=== PATIENT | male | born 1945 | race Caucasian/White ===

== ENCOUNTER 2023-03-18 16:43 | Inpatient (IN) | payer MEDICARE ==
--- NOTE | 2023-03-18 17:35 | XR ---
EXAMINATION TYPE: XR chest 2V DATE OF EXAM: 03/18/2023 5:30 PM COMPARISON: None TECHNIQUE: XR chest 2V Frontal and lateral views of the chest. CLINICAL INDICATION:Male, 77 years old with history of Weakness; FINDINGS: Lungs/Pleura: There is no evidence of pleural effusion, focal consolidation, or pneumothorax. Senesc ent parenchymal change. Pulmonary vascularity: Unremarkable. Heart/mediastinum: Cardiomediastinal silhouette is unremarkable. Atherosclerotic calcifications are seen in the aorta. Musculoskeletal: Multiple level degenerative disc disease changes seen throughout the spine. IMPRESSION: No acute cardiopulmonary disease/process.
[2023-03-18] MEDS ORDERED: KETOROLAC 15 MG/ML 1 ML VIAL IVP STA (17:48)
[2023-03-18] MEDS ORDERED: SODIUM CHLORIDE 0.9% 500 ML 500 ML IV STA (17:48)
[2023-03-18] MEDS ORDERED: ONDANSETRON 4 MG/2 ML VIAL IVP STA (17:49)
[2023-03-18 18:02] LABS: Basophils % (A) 0 %; Eosinophils # (A) 0.2 k/uL (0-0.7); Eosinophils % (A) 1 %; HCT 30.1 % (39.0-53.0); HGB 9.9 gm/dL (13.0-17.5); Lymphocytes # (A) 0.8 k/uL (1.0-4.8); Lymphocytes % (A) 6 %; MCH 30.6 pg (25.0-35.0); MCHC 32.9 g/dL (31.0-37.0); MCV 93.2 fL (80.0-100.0); Mean Platelet Volume 8.8; Monocytes # (A) 0.6 k/uL (0-1.0); Monocytes % (A) 4 %; Neutrophils # (A) 12.2 k/uL (1.3-7.7); Neutrophils % (A) 88 %; Platelet Count 419 k/uL (150-450); RBC 3.23 m/uL (4.30-5.90); RDW 13.4 % (11.5-15.5); WBC 13.8 k/uL (3.8-10.6)
[2023-03-18 18:05] LABS: ALT 14 U/L (4-49); AST 17 U/L (17-59); African American GFR (CKD) 10 (>60 ml/min/1.73 sqM); Albumin 3.8 g/dL (3.5-5.0); Alkaline Phosphatase 141 U/L (38-126); Anion Gap 20 mmol/L; Blood Urea Nitrogen 87 mg/dL (9-20); Calcium 9.9 mg/dL (8.4-10.2); Carbon Dioxide 14 mmol/L (22-30); Chloride 106 mmol/L (98-107); Glucose 273 mg/dL (74-99); Non-African American GFR(CKD) 8 (>60 ml/min/1.73 sqM); Potassium 4.9 mmol/L (3.5-5.1); Sodium 140 mmol/L (137-145); Total Bilirubin 0.4 mg/dL (0.2-1.3); Total Protein 7.2 g/dL (6.3-8.2)
--- NOTE | 2023-03-18 18:15 | ED ---
General Adult HPI - General Chief complaint: Weakness Stated complaint: Failure to thrive Time Seen by Provider: 03/18/23 17:18 Source: EMS Mode of arrival: EMS Limitations: altered mental status - History of Present Illness Initial comments: Patient is 77-year-old male who presents the emergency department for failure to thrive. Patient has dementia and his helps provide history. According to patient has been complaining of intermittent abdominal pain for the past few months. Over the past few days he has been sleeping more than usual and has little oral intake. States he has not urinated in a couple of days. Patient has had nausea no vomiting. No fever or chills. No shortness of breath. No upper respiratory symptoms. Patient has history of prostate cancer he underwent treatment at least a couple years ago according to . - Related Data Home Medications Medication Instructions Recorded Confirmed Donepezil [Aricept] 5 mg PO HS 03/18/23 03/18/23 Ferrous Sulfate [Feosol] 325 mg PO DAILY 03/18/23 03/18/23 Levothyroxine Sodium [Synthroid] 50 mcg PO DAILY 03/18/23 03/18/23 glipiZIDE 2.5 mg PO DAILY 03/18/23 03/18/23 lisinopriL [Zestril] 2.5 mg PO DAILY 03/18/23 03/18/23 metFORMIN HCL 1,000 mg PO BID-W/MEALS 03/18/23 03/18/23 Allergies Allergy/AdvReac Type Severity Reaction Status Date / Time No Known Allergies Allergy Verified 03/18/23 17:42 Review of Systems ROS Statement: Those systems with pertinent positive or pertinent negative responses have been documented in the HPI. ROS Other: All systems not noted in ROS Statement are negative. Past Medical History Past Medical History: Dementia Additional Past Medical History / Comment(s): prostate cancer General Exam Limitations: altered mental status General appearance: alert, in no apparent distress Eye exam: Present: normal appearance, PERRL, EOMI. Absent: scleral icterus, conjunctival injection, periorbital swelling ENT exam: Present: mucous membranes dry Neck exam: Present: normal inspection. Absent: tenderness, meningismus, lymphadenopathy Respiratory exam: Present: normal lung sounds bilaterally. Absent: respiratory distress, wheezes, rales, rhonchi, stridor Cardiovascular Exam: Present: regular rate, normal rhythm, normal heart sounds. Absent: systolic murmur, diastolic murmur, rubs, gallop, clicks GI/Abdominal exam: Present: soft, distended (Suprapubic), normal bowel sounds. Absent: tenderness, guarding, rebound, rigid, pulsatile mass Extremities exam: Present: normal inspection, normal capillary refill Neurological exam: Present: alert Skin exam: Present: warm, dry, intact, normal color. Absent: rash Course Vital Signs 03/18/23 03/18/23 03/18/23 16:53 18:09 20:35 Temperature 98.2 F 99.1 F Pulse Rate 109 H 108 H 102 H Respiratory 20 17 18 Rate Blood Pressure 161/79 188/88 154/82 O2 Sat by Pulse 98 99 98 Oximetry Medical Decision Making - Medical Decision Making EKG taken at 17:37, interpreted by myself Sinus tachycardia, No ST changes Ventricular rate 107, TX interval 151, QRS duration 94, QTC 403Was pt. sent in by a medical professional or institution (, PA, [employer], urgent care, hospital, or half-way...) When possible be specific @ -No Did you speak to anyone other than the patient for history (EMS, parent, family, police, friend...)? What history was obtained from this source @ - Did you review nursing and triage notes (agree or disagree)? Why? @ -I reviewed and agree with nursing and triage notes Were old charts reviewed (outside hosp., previous admission, EMS record, old EKG, old radiological studies, urgent care reports/EKG's, half-way records)? Report findings @ -No old charts were reviewed Differential Diagnosis (chest pain, altered mental status, abdominal pain women, abdominal pain men, vaginal bleeding, weakness, fever, dyspnea, syncope, headache, dizziness, GI bleed, back pain, seizure, CVA, palpatations, mental health)? @ -not applicable EKG interpreted by me (3pts min.). @ -As above X-rays interpreted by me (1pt min.). @ No acute cardiopulmonary process CT interpreted by me (1pt min.). @ -distended bladder with mild to moderate bilateral hydroureteronephrosis. No obstructing calculus. Possible ruptured calyx. Trace right pleural effusion. U/S interpreted by me (1pt. min.). @ -None done What testing was considered but not performed or refused? (CT, X-rays, U/S, labs)? Why? @ -None What meds were considered but not given or refused? Why? @ -None Did you discuss the management of the patient with other professionals (professionals i.e. , PA, [employer], lab, RT, psych nurse, social sciences instructor, profiling machine operator, teacher, special officer automat, case managers)? Give summary @ -No Was smoking cessation discussed for >3mins.? @ -No Was critical care preformed (if so, how long)? @ -No Were there social determinants of health that impacted care today? How? (Homelessness, low income, unemployed, alcoholism, drug addiction, transportation, low edu. Level, literacy, decrease access to med. care, longterm, rehab)? @ -No Was there de-escalation of care discussed even if they declined (Discuss DNR or withdrawal of care, Hospice)? DNR status @ -No What co-morbidities impacted this encounter? (DM, HTN, Smoking, COPD, CAD, Cancer, CVA, ARF, Chemo, Hep., AIDS, mental health diagnosis, sleep apnea, morbid obesity)? @ Diabetes Was patient admitted / discharged? Hospital course, mention meds given and ro [place], prescriptions, significant lab abnormalities, going to OR and other pertinent info. @ -77-year-old presenting for failure to thrive. Patient appears malnourished, dry, in apparent distress. Vital signs within normal limits. Laboratory studies significant for acute kidney injury, creatinine at 6.06, BUN 87, no previous for comparison. There is hyperglycemia at 273, patient has history of diabetes. Patient is acidotic, bicarbonate 14 anion gap at 20.there is no ketosis. Patient is not in DKA. Alk phos is mildly elevated at 141. There is mild leukocytosis of 13.8. Chest x-ray was interpreted by myself showing no acute cardiopulmonary process. CT of the abdomen and pelvis without contrast was obtained showing a distended bladder with mild to moderate bilateral hydroureteronephrosis. No obstructing calculus. Possible ruptured calyx. Patient unable to urinate bladder scan was performed and fully catheter was placed Patient be admitted for failure to thrive, NICHOLAS, urinary retention. Dr. Maddox accept nephro and urology on consult Undiagnosed new problem with uncertain prognosis? @ -No Drug Therapy requiring intensive monitoring for toxicity (Heparin, Nitro, Insulin, Cardizem)? @ -No Were any procedures done? @ -No Diagnosis/symptom? @ -failure to thrive,NICHOLAS, urinary retention Acute, or Chronic, or Acute on Chronic? @ -acute Uncomplicated (without systemic symptoms) or Complicated (systemic symptoms)? @ -default Side effects of treatment? @ -No Exacerbation, Progression, or Severe Exacerbation? @ -No Poses a threat to life or bodily function? How? (Chest pain, [place], [place], pneumonia, PE, COPD, DKA, ARF, appy, cholecystitis, CVA, Diverticulitis, Homicidal, Suicidal, threat to staff... and all critical care pts) @ -No Dr. Kay is my attending - Lab Data Result diagrams: 03/18/23 17:30 03/18/23 17:30 Lab Results 03/18/23 03/18/23 03/18/23 Range/Units 17:30 17:30 17:30 WBC 13.8 H (3.8-10.6) k/uL RBC 3.23 L (4.30-5.90) m/uL Hgb 9.9 L (13.0-17.5) gm/dL Hct 30.1 L (39.0-53.0) % MCV 93.2 (80.0-100.0) fL MCH 30.6 (25.0-35.0) pg MCHC 32.9 (31.0-37.0) g/dL RDW 13.4 (11.5-15.5) % Plt Count 419 (150-450) k/uL MPV 8.8 Neutrophils % 88 % Lymphocytes % 6 % Monocytes % 4 % Eosinophils % 1 % Basophils % 0 % Neutrophils # 12.2 H (1.3-7.7) k/uL Lymphocytes # 0.8 L (1.0-4.8) k/uL Monocytes # 0.6 (0-1.0) k/uL Eosinophils # 0.2 (0-0.7) k/uL Basophils # 0.0 (0-0.2) k/uL PT (9.0-12.0) sec INR (<1.2) APTT (22.0-30.0) sec Sodium 140 (137-145) mmol/L Potassium 4.9 (3.5-5.1) mmol/L Chloride 106 (98-107) mmol/L Carbon Dioxide 14 L (22-30) mmol/L Anion Gap 20 mmol/L BUN 87 H (9-20) mg/dL Creatinine 6.06 H (0.66-1.25) mg/dL Est GFR (CKD-EPI)AfAm 10 (>60 ml/min/1.73 sqM) Est GFR (CKD-EPI)NonAf 8 (>60 ml/min/1.73 sqM) Glucose 273 H (74-99) mg/dL Plasma Lactic Acid Dax (0.7-2.0) mmol/L Calcium 9.9 (8.4-10.2) mg/dL Magnesium 2.0 (1.6-2.3) mg/dL Total Bilirubin 0.4 (0.2-1.3) mg/dL AST 17 (17-59) U/L ALT 14 (4-49) U/L Alkaline Phosphatase 141 H (38-126) U/L Total Protein 7.2 (6.3-8.2) g/dL Albumin 3.8 (3.5-5.0) g/dL Urine Color Colorless Urine Appearance Clear (Clear) Urine pH 5.5 (5.0-8.0) Ur Specific [place] 1.008 (1.001-1.035) Urine Protein Negative (Negative) Urine Glucose (UA) Trace H (Negative) Urine Ketones Negative (Negative) Urine Blood Negative (Negative) Urine Nitrite Negative (Negative) Urine Bilirubin Negative (Negative) Urine Urobilinogen <2.0 (<2.0) mg/dL Ur Leukocyte Esterase Negative (Negative) 03/18/23 03/18/23 Range/Units 17:30 18:12 WBC (3.8-10.6) k/uL RBC (4.30-5.90) m/uL Hgb (13.0-17.5) gm/dL Hct (39.0-53.0) % MCV (80.0-100.0) fL MCH (25.0-35.0) pg MCHC (31.0-37.0) g/dL RDW (11.5-15.5) % Plt Count (150-450) k/uL MPV Neutrophils % % Lymphocytes % % Monocytes % % Eosinophils % % Basophils % % Neutrophils # (1.3-7.7) k/uL Lymphocytes # (1.0-4.8) k/uL Monocytes # (0-1.0) k/uL Eosinophils # (0-0.7) k/uL Basophils # (0-0.2) k/uL PT 10.5 (9.0-12.0) sec INR 1.0 (<1.2) APTT 18.9 L (22.0-30.0) sec Sodium (137-145) mmol/L Potassium (3.5-5.1) mmol/L Chloride (98-107) mmol/L Carbon Dioxide (22-30) mmol/L Anion Gap mmol/L BUN (9-20) mg/dL Creatinine (0.66-1.25) mg/dL Est GFR (CKD-EPI)AfAm (>60 ml/min/1.73 sqM) Est GFR (CKD-EPI)NonAf (>60 ml/min/1.73 sqM) Glucose (74-99) mg/dL Plasma Lactic Acid Dax 1.2 (0.7-2.0) mmol/L Calcium (8.4-10.2) mg/dL Magnesium (1.6-2.3) mg/dL Total Bilirubin (0.2-1.3) mg/dL AST (17-59) U/L ALT (4-49) U/L Alkaline Phosphatase (38-126) U/L Total Protein (6.3-8.2) g/dL Albumin (3.5-5.0) g/dL Urine Color Urine Appearance (Clear) Urine pH (5.0-8.0) Ur Specific [place] (1.001-1.035) Urine Protein (Negative) Urine Glucose (UA) (Negative) Urine Ketones (Negative) Urine Blood (Negative) Urine Nitrite (Negative) Urine Bilirubin (Negative) Urine Urobilinogen (<2.0) mg/dL Ur Leukocyte Esterase (Negative) Disposition Clinical Impression: Failure to thrive, Urinary retention, NICHOLAS (acute kidney injury) Disposition: ADMITTED IP TO THIS HOSP Condition: Fair
[2023-03-18 18:40] LABS: Prothrombin Time 10.5 sec (9.0-12.0)
[2023-03-18 18:52] LABS: Partial Thromboplastin Time 18.9 sec (22.0-30.0)
--- NOTE | 2023-03-18 18:58 | CT ---
EXAMINATION TYPE: CT abdomen pelvis wo con CT DLP: 413.6 mGycm, Automated exposure control for dose reduction was used. DATE OF EXAM: 03/18/2023 6:49 PM COMPARISON: None CLINICAL INDICATION:Male, 77 years old with history of mass; failure to thrive. known mass. TECHNIQUE: Standard CT of the abdomen and pelvis without IV or oral contrast. Lack of IV or oral co ntrast limits evaluation of solid and hollow organ viscera. Coronal and sagittal reformats were perfo rmed. FINDINGS: LOWER CHEST: Trace right pleural effusion with bibasilar subsegmental atelectasis. Coronary artery ca lcifications. ABDOMEN LIVER: Unremarkable GALLBLADDER AND BILE DUCTS: Unremarkable. PANCREAS: Unremarkable. SPLEEN: Unremarkable. ADRENAL GLANDS: Unremarkable. KIDNEYS AND URETERS: Mild to moderate bilateral hydroureteronephrosis without obstructing calculus. PELVIS BLADDER: Moderately distended urinary bladder. REPRODUCTIVE: Brachytherapy seeds within the prostate gland. Calcification of the bilateral vas defer ens. ABDOMEN & PELVIS STOMACH AND BOWEL: Diverticulum involving the third portion of the duodenum. No focal bowel wall thic kening. The appendix is within normal limits. No evidence of bowel obstruction. PERITONEUM/RETROPERITONEUM: No evidence of pneumoperitoneum. Small amount of free fluid identified wi thin the right retroperitoneum extending inferiorly. VASCULATURE: Moderate atherosclerotic calcifications are present throughout the abdominal aorta and i ts branches. No evidence of aortic aneurysm. MUSCULOSKELETAL: No acute osseous abnormalities. No aggressive osseous lesion. LYMPH NODES: No gross evidence for lymphadenopathy. SOFT TISSUE/ABDOMINAL WALL: Unremarkable IMPRESSION: Evaluation is limited due to lack of intravenous and oral contrast. 1. Moderately distended urinary bladder with mild to moderate bilateral hydroureteronephrosis withou t obstructing calculus. Small amount of free fluid within the right retroperitoneum which can be seen with ruptured calyx. Consider Mccord catheter placement. 2. Trace right pleural effusion.
[2023-03-18 21:00] LABS: Appearance,Urine Clear (Clear); Bilirubin,Urine Negative (Negative); Blood,Urine Negative (Negative); Color,Urine Colorless; Glucose,Urine (UA) Trace (Negative); Ketones,Urine Negative (Negative); Leukocyte Esterase,Urine Negative (Negative); Nitrite,Urine Negative (Negative); PH, Urine 5.5 (5.0-8.0); Protein,Urine Negative (Negative); Specific Gravity,Urine 1.008 (1.001-1.035); Urobilinogen,Urine <2.0 mg/dL (<2.0)
[2023-03-18] MEDS ORDERED: NALOXONE 0.4 MG/ML 1 ML VIAL IV PRN (21:36)
[2023-03-18] MEDS ORDERED: SODIUM CHLORIDE 0.9% 1,000 ML IV STA (21:39)
[2023-03-18] MEDS ORDERED: NON FORMULARY DRUG (Metformin Hcl [Metformin Hcl] 1,000 MG Tablet) PO SCH (21:45)
[2023-03-18] MEDS: DONEPEZIL 5 MG TAB PO SCH (22:41)
[2023-03-18] MEDS: LEVOTHYROXINE 50 MCG TAB PO SCH (22:41)
[2023-03-19] MEDS ORDERED: DEXTROSE 50% SYRINGE 50 ML IVP PRN ×2 (04:17)
--- NOTE | 2023-03-19 04:26 | P.HPIM ---
History of Present Illness H&P Date: 03/18/23 Chief Complaint: abd pain 77 year old male with prostate cancer history patient is not providing any history , he denies any complaints, his at bedside assists with history She brought him in as he was growing increasingly weak over the past couple days he staying in bed all day refuses to eat or drink. He is complaining of lower abdominal pain but without any fevers chills nausea vomiting or GI bleeding or hematuria. However she did notice that he has not been urinating normally but she was swelling has close with small amounts of urine every now and then. He has history of prostate cancer that was treated however upon follow-up with his PCP it was found that his PSA is elevated for which she had an appointment for follow-up with urology today but she refuses to go and see them. After which the decided that she would bring him to the hospital for evaluation. She indicated this really hard to get those urology appointments and they've been wa iting for it for 2 months No further history is obtainable from the patient himself but he agrees with with the said. Patient states nicotine but no illicit drugs or alcohol Workup in the ED showed distended bladder Mccord catheter was inserted. Imaging with CAT scan showed bilateral hydronephrosis with distended bladder review of systems Pertinent positives as noted in HPI. All other systems were reviewed and are negative on exam Constitutional: No acute distress, conversant, pleasant Eyes: Anicteric sclerae, moist conjunctiva, Pupils equal round reactive to light ENMT: NC/AT Oropharynx clear, no erythema, or exudates Neck: Supple, no masses, or JVD No carotid bruits No thyromegaly Lungs: Clear to auscultation Clear to percussion Normal respiratory effort, no accessory muscle use Cardiovascular: Heart regular in rate and rhythm, No murmurs, gallops, or rubs No peripheral edema Abdominal: Soft, Mccord catheter in place Nontender, no guarding, rebound or rigidity Abdomen moving with respiration Normoactive bowel sounds No hepatomegaly, No splenomegaly No palpable mass No abdominal wall hernia noted Extremities: No digital cyanosis No clubbing Pedal pulses intact and symmetrical Radial pulses intact and symmetrical No calf tenderness Psychiatric: Alert and oriented to person, only Neuro Muscles Strength 4/5 in all 4 extremities Sensation to light touch grossly present throughout Cranial nerves II-XII grossly intact Lymphatics: no palpable cervical or supraclavicular lymph nodes Past Medical History Past Medical History: Dementia Additional Past Medical History / Comment(s): prostate cancer History of Any Multi-Drug Resistant Organisms: None Reported Past Anesthesia/Blood Transfusion Reactions: No Reported Reaction Additional Psychological History / Comment(s): demencia Smoking Status: Vaper Past Alcohol Use History: None Reported Past Drug Use History: None Reported Medications and Allergies Home Medications Medication Instructions Recorded Confirmed Type Donepezil [Aricept] 5 mg PO HS 03/18/23 03/18/23 History Ferrous Sulfate [Feosol] 325 mg PO DAILY 03/18/23 03/18/23 History Levothyroxine Sodium [Synthroid] 50 mcg PO DAILY 03/18/23 03/18/23 History glipiZIDE 2.5 mg PO DAILY 03/18/23 03/18/23 History lisinopriL [Zestril] 2.5 mg PO DAILY 03/18/23 03/18/23 History metFORMIN HCL 1,000 mg PO BID-W/MEALS 03/18/23 03/18/23 History Allergies Allergy/AdvReac Type Severity Reaction Status Date / Time No Known Allergies Allergy Verified 03/18/23 17:42 Physical Exam Vitals: Vital Signs Temp Pulse Pulse Resp BP BP Pulse Ox 03/19/23 02:00 98.2 F 101 H 19 115/66 96 03/18/23 23:27 98.2 F 101 H 19 115/66 96 03/18/23 20:35 102 H 18 154/82 98 03/18/23 18:09 99.1 F 108 H 17 188/88 99 03/18/23 16:53 98.2 F 109 H 20 161/79 98 Intake and Output 03/18/23 03/18/23 03/19/23 14:59 22:59 06:59 Output Total 540 Balance -540 Output: Urine 540 Other: Voiding Method Indwelling Catheter Weight 52.163 kg Results CBC & Chem 7: 03/18/23 17:30 03/18/23 17:30 Labs: Abnormal Lab Results - Last 24 Hours (Table) 03/18/23 03/18/23 03/18/23 Range/Units 17:30 17:30 17:30 WBC 13.8 H (3.8-10.6) k/uL RBC 3.23 L (4.30-5.90) m/uL Hgb 9.9 L (13.0-17.5) gm/dL Hct 30.1 L (39.0-53.0) % Neutrophils # 12.2 H (1.3-7.7) k/uL Lymphocytes # 0.8 L (1.0-4.8) k/uL APTT (22.0-30.0) sec Carbon Dioxide 14 L (22-30) mmol/L BUN 87 H (9-20) mg/dL Creatinine 6.06 H (0.66-1.25) mg/dL Glucose 273 H (74-99) mg/dL Alkaline Phosphatase 141 H (38-126) U/L Urine Glucose (UA) Trace H (Negative) 03/18/23 Range/Units 18:12 WBC (3.8-10.6) k/uL RBC (4.30-5.90) m/uL Hgb (13.0-17.5) gm/dL Hct (39.0-53.0) % Neutrophils # (1.3-7.7) k/uL Lymphocytes # (1.0-4.8) k/uL APTT 18.9 L (22.0-30.0) sec Carbon Dioxide (22-30) mmol/L BUN (9-20) mg/dL Creatinine (0.66-1.25) mg/dL Glucose (74-99) mg/dL Alkaline Phosphatase (38-126) U/L Urine Glucose (UA) (Negative) Thrombosis Risk Factor Assmnt - Choose All That Apply Any of the Below Risk Factors Present?: No Other Risk Factors: No Other congenital or acquired thrombophilia - If yes, enter type in comment: No Thrombosis Risk Factor Assessment Level: Very Low Risk Assessment and Plan Assessment: 77-year-old male coming in with urinary retention and overflow incontinence with history of prostate cancer I discussed the case with the ED doctor and accepted the admission for acute kidney injury secondary to obstructive uropathy with anticipated length of stay more than 2 midnights Acute kidney injury secondary to obstructive uropathy with prostate cancer CT of the abdomen and pelvis showing bilateral mild to moderate hydronephrosis with suspected right calyceal rupture and small free fluid in the right retroperitoneal. History of breast cancer status post treatment however recent blood work showed an increase in PSA which is suspicious for possible recurrence of cancer Urology consult Supportive care Fall precautions Mccord catheter was inserted and maintained Monitor urine output and avoid postobstructive nephrogenic diabetes insipidus Monitor renal function White count 13.8, afebrile monitor off antibiotics for now Anemia Hemoglobin 9.9 unknown baseline No reported GI bleeding Acute kidney injury with unknown baseline creatinine BUN 87 creatinine 6.06 Sodium 140 potassium 4.9 IV fluid hydration with normal saline status post 1 L bolus continue with 100 mL/h Hypothyroid Resume levothyroxine Dementia Continue with Aricept Full code DVT prophylaxis heparin subcu 3 times a day
[2023-03-19 06:00] LABS: Glucose,Whole Blood 144 mg/dL (70-110)
[2023-03-19] MEDS: INSULIN ASPART (NovoLOG) 100 UNIT/ML VIAL SQ SCH ×4 (06:00→21:52)
[2023-03-19] MEDS: LEVOTHYROXINE 50 MCG TAB PO SCH (06:07)
--- NOTE | 2023-03-19 07:53 | P.GSCN ---
History of Present Illness Consult date: 03/19/23 History of present illness: 77-year-old gentleman brought to the hospital by family because of weakness. The patient was found to be in acute renal failure and urine retention. A catheter was placed. He was admitted to the hospital. We are asked to see the patient for urine retention. Patient does have Alzheimer's and is hard of hearing. The is at the bedside and gave me the history. He does have a history of prostate cancer treated with radiation therapy and LHRH therapy many years ago by our office. He has not followed up for years. He is followed by [facility]. Apparently he had a PSA recently that was rising and was referred here. The patient has refused evaluation. Patient has been having chronic abdominal pain. For the last couple of months he has had incontinence without awareness. The patient had a computed tomography scan here showing bilateral mild hydronephrosis and urine retention. Prostate is not very enlarge d. There are markers in the prostate used previously for radiation therapy (these are not radium seeds as discussed per the radiologist). The patient had a bladder scan identifying 784 mL of urine. Catheter was placed. The urine is clear at present. He has not seen a urologist in a long time according to the . Review of Systems ROS unobtainable: due to mental status Past Medical History Past Medical History: Dementia Additional Past Medical History / Comment(s): prostate cancer History of Any Multi-Drug Resistant Organisms: None Reported Past Anesthesia/Blood Transfusion Reactions: No Reported Reaction Additional Psychological History / Comment(s): demencia Smoking Status: Vaper Past Alcohol Use History: None Reported Past Drug Use History: None Reported Medications and Allergies Home Medications Medication Instructions Recorded Confirmed Type Donepezil [Aricept] 5 mg PO HS 03/18/23 03/18/23 History Ferrous Sulfate [Feosol] 325 mg PO DAILY 03/18/23 03/18/23 History Levothyroxine Sodium [Synthroid] 50 mcg PO DAILY 03/18/23 03/18/23 History glipiZIDE 2.5 mg PO DAILY 03/18/23 03/18/23 History lisinopriL [Zestril] 2.5 mg PO DAILY 03/18/23 03/18/23 History metFORMIN HCL 1,000 mg PO BID-W/MEALS 03/18/23 03/18/23 History Allergies Allergy/AdvReac Type Severity Reaction Status Date / Time No Known Allergies Allergy Verified 03/18/23 17:42 Surgical - Exam Vital Signs Temp Pulse Resp BP Pulse Ox 98.2 F 109 H 20 161/79 98 03/18/23 16:53 03/18/23 16:53 03/18/23 16:53 03/18/23 16:53 03/18/23 16:53 - General well nourished - Eyes PERRL - ENT decreased hearing - Neck trachea midline - Respiratory normal expansion, normal respiratory effort - Cardiovascular Rhythm: regular - Abdomen Abdomen: soft, non tender - Genitourinary Indwelling catheter, normal testicles. Prostate is small flat without obvious nodule - Integumentary no growths - Neurologic memory loss - Musculoskeletal normal posture Results - Labs 03/18/23 17:30 03/18/23 17:30 Abnormal Lab Results - Last 24 Hours (Table) 03/18/23 03/18/23 03/18/23 Range/Units 17:30 17:30 17:30 WBC 13.8 H (3.8-10.6) k/uL RBC 3.23 L (4.30-5.90) m/uL Hgb 9.9 L (13.0-17.5) gm/dL Hct 30.1 L (39.0-53.0) % Neutrophils # 12.2 H (1.3-7.7) k/uL Lymphocytes # 0.8 L (1.0-4.8) k/uL APTT (22.0-30.0) sec Carbon Dioxide 14 L (22-30) mmol/L BUN 87 H (9-20) mg/dL Creatinine 6.06 H (0.66-1.25) mg/dL Glucose 273 H (74-99) mg/dL POC Glucose (mg/dL) (70-110) mg/dL Alkaline Phosphatase 141 H (38-126) U/L Urine Glucose (UA) Trace H (Negative) 03/18/23 03/19/23 Range/Units 18:12 05:57 WBC (3.8-10.6) k/uL RBC (4.30-5.90) m/uL Hgb (13.0-17.5) gm/dL Hct (39.0-53.0) % Neutrophils # (1.3-7.7) k/uL Lymphocytes # (1.0-4.8) k/uL APTT 18.9 L (22.0-30.0) sec Carbon Dioxide (22-30) mmol/L BUN (9-20) mg/dL Creatinine (0.66-1.25) mg/dL Glucose (74-99) mg/dL POC Glucose (mg/dL) 144 H (70-110) mg/dL Alkaline Phosphatase (38-126) U/L Urine Glucose (UA) (Negative) Diabetes panel 03/18/23 Range/Units 17:30 Sodium 140 (137-145) mmol/L Potassium 4.9 (3.5-5.1) mmol/L Chloride 106 (98-107) mmol/L Carbon Dioxide 14 L (22-30) mmol/L BUN 87 H (9-20) mg/dL Creatinine 6.06 H (0.66-1.25) mg/dL Glucose 273 H (74-99) mg/dL Calcium 9.9 (8.4-10.2) mg/dL AST 17 (17-59) U/L ALT 14 (4-49) U/L Alkaline Phosphatase 141 H (38-126) U/L Total Protein 7.2 (6.3-8.2) g/dL Albumin 3.8 (3.5-5.0) g/dL Calcium panel 03/18/23 Range/Units 17:30 Calcium 9.9 (8.4-10.2) mg/dL Albumin 3.8 (3.5-5.0) g/dL Pituitary panel 03/18/23 Range/Units 17:30 Sodium 140 (137-145) mmol/L Potassium 4.9 (3.5-5.1) mmol/L Chloride 106 (98-107) mmol/L Carbon Dioxide 14 L (22-30) mmol/L BUN 87 H (9-20) mg/dL Creatinine 6.06 H (0.66-1.25) mg/dL Glucose 273 H (74-99) mg/dL Calcium 9.9 (8.4-10.2) mg/dL Adrenal panel 03/18/23 Range/Units 17:30 Sodium 140 (137-145) mmol/L Potassium 4.9 (3.5-5.1) mmol/L Chloride 106 (98-107) mmol/L Carbon Dioxide 14 L (22-30) mmol/L BUN 87 H (9-20) mg/dL Creatinine 6.06 H (0.66-1.25) mg/dL Glucose 273 H (74-99) mg/dL Calcium 9.9 (8.4-10.2) mg/dL Total Bilirubin 0.4 (0.2-1.3) mg/dL AST 17 (17-59) U/L ALT 14 (4-49) U/L Alkaline Phosphatase 141 H (38-126) U/L Total Protein 7.2 (6.3-8.2) g/dL Albumin 3.8 (3.5-5.0) g/dL - Imaging CT scan - abdomen: report reviewed, image reviewed CT scan - pelvis: report reviewed, image reviewed Assessment and Plan Assessment: Impression: Urinary retention acute and possible chronic. Urinary incontinence secondary to overflow incontinence. Hydronephrosis secondary to urine retention. Acute and chronic renal failure secondary to retention, possibly diabetes. Recommendation: I will review the records in the office. Apparently he had a PSA that was elevated at the [facility] and was sent to our office. I will review that. Pending the results of that as a further recommendations.
[2023-03-19] MEDS ORDERED: glipiZIDE 5 MG TAB PO SCH (09:00)
[2023-03-19] MEDS: HEPARIN SODIUM,PORCINE 5,000 UNIT/ML 1 ML VIAL SQ SCH ×2 (09:13→16:18)
[2023-03-19] MEDS: FERROUS SULFATE 325 MG TAB PO SCH (09:14)
[2023-03-19] MEDS ORDERED: SODIUM CHLORIDE 0.9% 1,000 ML IV SCH (11:00)
[2023-03-19 11:14] LABS: Glucose,Whole Blood 243 mg/dL (70-110)
[2023-03-19 11:44] LABS: BUN/Creat Ratio 17.25 Ratio (12.00-20.00); Calcium 9.2 mg/dL (8.7-10.3); Carbon Dioxide 16.9 mmol/L (21.6-31.8); Chloride 113 mmol/L (96-109); Glucose 124 mg/dL (70-110); Potassium 3.8 mmol/L (3.5-5.5); Sodium 145 mmol/L (135-145)
--- NOTE | 2023-03-19 12:20 | P.NPCON ---
History of Present Illness - Reason for Consult acute renal failure - History of Present Illness Reason for consultation: Acute kidney injury History of present illness: Patient is a 77-year-old male seen in consultation for acute kidney injury. Patient's creatinine on admission was 6.06 and is 4.0 today. Unknown baseline renal function. Patient came to the hospital due to generalized weakness and po or intake. He denies any vomiting or diarrhea. Patient has history of prostate cancer. He does have history of diabetes. Denies history of coronary artery disease. He was on lisinopril outpatient which is currently held. He is receiving normal saline which is running at 1 25 mL an hour. Patient had a CAT scan done which showed moderate bilateral hydronephrosis. He has a Mccord catheter. He's being followed by urology. Hemodynamically stable. Denies chest pain or shortness of breath. No edema. Daughter present at bedside. No fever or chills. No cough. He recently started wearing depends due to incontinence. Vital signs are stable. General: No acute distress. HEENT: Head exam is unremarkable. LUNGS: No audible rhonchi or wheezes. HEART: Rate and Rhythm are regular. ABDOMEN: Nontender. EXTREMITITES: No edema. Past Medical History Past Medical History: Dementia Additional Past Medical History / Comment(s): prostate cancer History of Any Multi-Drug Resistant Organisms: None Reported Past Anesthesia/Blood Transfusion Reactions: No Reported Reaction Additional Psychological History / Comment(s): demencia Smoking Status: Vaper Past Alcohol Use History: None Reported Past Drug Use History: None Reported Medications and Allergies Home Medications Medication Instructions Recorded Confirmed Type Donepezil [Aricept] 5 mg PO HS 03/18/23 03/18/23 History Ferrous Sulfate [Feosol] 325 mg PO DAILY 03/18/23 03/18/23 History Levothyroxine Sodium [Synthroid] 50 mcg PO DAILY 03/18/23 03/18/23 History glipiZIDE 2.5 mg PO DAILY 03/18/23 03/18/23 History lisinopriL [Zestril] 2.5 mg PO DAILY 03/18/23 03/18/23 History metFORMIN HCL 1,000 mg PO BID-W/MEALS 03/18/23 03/18/23 History Allergies Allergy/AdvReac Type Severity Reaction Status Date / Time No Known Allergies Allergy Verified 03/18/23 17:42 Physical Exam Vitals: Vital Signs Temp Pulse Pulse Resp BP BP Pulse Ox 03/19/23 08:55 96 03/19/23 07:00 98.1 F 92 16 94/62 97 03/19/23 02:00 98.2 F 101 H 19 115/66 96 03/18/23 23:27 98.2 F 101 H 19 115/66 96 03/18/23 20:35 102 H 18 154/82 98 03/18/23 18:09 99.1 F 108 H 17 188/88 99 03/18/23 16:53 98.2 F 109 H 20 161/79 98 Intake and Output 03/18/23 03/19/23 03/19/23 22:59 06:59 14:59 Intake Total 250 Output Total 540 120 600 Balance -540 -120 -350 Intake: Intake, IV Titration 250 Amount Sodium Chloride 0.9% 1, 250 000 ml @ 125 mls/hr IV . Q8H [facility] Rx#:[id number] Output: Urine 540 120 600 Other: Voiding Method Indwelling Catheter Indwelling Catheter Weight 52.163 kg Results - Lab Results Most recent lab results Calcium 9.2 mg/dL (8.7-10.3) 03/19/23 06:23 Magnesium 1.9 mg/dL (1.6-2.3) 03/19/23 06:23 03/18/23 17:30 03/19/23 06:23 Assessment and Plan Plan: Assessment: 1. Acute kidney injury secondary to obstructive uropathy. Creatinine 6 on admission and is 4 today. Unknown baseline renal function. UA benign. 2. Bilateral hydronephrosis being followed by urology. Currently has a Mccord catheter. 3. Benign hypertension. Controlled. 4. Anemia. Rule out iron deficiency. 5. Metabolic acidosis secondary to acute kidney injury. 6. Diabetes mellitus. Plan: Change IV fluids to bicarb drip to be run at 100 mL an hour. Continue to hold antihypertensives. Check iron studies. Avoid nephrotoxins. Continue to monitor renal function and urine output. Thank you for the consultation. I will continue to follow the patient with you during his hospital stay.
[2023-03-19] MEDS: DEXTROSE 5% IN WATER 1,000 ML with SODIUM BICARB (1 MEQ/ML) 150 ML IV SCH (13:45)
[2023-03-19 14:25] VITALS: BMI 18.0
--- NOTE | 2023-03-19 15:57 | P.PN ---
Subjective Progress Note Date: 03/19/23 No new complaints. Seen by urology and nephrology, apprecaite recommendations. Gen: awake, alert HEENT: normocephalic, atraumatic, good hearing acuity, moist mucous membranes Resp: good air exchange, breathing comfortably with no accessory muscle use CVS: good distal perfusion x 4, GI: soft, NTTP, ND : no SPT, no CVAT, rowe catheter is present MSK: no pitting edema, no clubbing Neuro: non-focal, moving all extremities Psych: cooperative, euthymic mood Assessment/plan: 77-year-old male coming in with urinary retention and overflow incontinence with history of prostate cancer I discussed the case with the ED doctor and accepted the admission for acute kidney injury secondary to obstructive uropathy with anticipated length of stay more than 2 midnights Acute kidney injury secondary to obstructive uropathy with prostate cancer History of prostate cancer status post treatment however recent blood work showed an increase in PSA which is suspicious for possible recurrence of cancer Urology consult, appreciated nephrology consult, appreciated Rowe catheter was inserted and maintained Monitor urine output and avoid postobstructive nephrogenic diabetes insipidus Monitor renal function White count 13.8, afebrile monitor off antibiotics for now Anemia Hemoglobin 9.9 unknown baseline No reported GI bleeding Acute kidney injury with unknown baseline creatinine IV fluid hydration with normal saline status post 1 L bolus continue with 100 mL/h Rowe catheter placed, Hypothyroid Resume levothyroxine Dementia Continue with Aricept Full code DVT prophylaxis heparin subcu 3 times a day Objective - Vital Signs Vital signs: Vital Signs Temp 98.1 F 03/19/23 14:00 Pulse 103 H 03/19/23 14:00 Resp 18 03/19/23 14:00 BP 139/79 03/19/23 14:00 Pulse Ox 100 03/19/23 14:00 FiO2 Intake & Output 03/18/23 03/19/23 03/19/23 18:59 06:59 18:59 Intake Total 475 Output Total 660 875 Balance -660 -400 Weight 52.163 kg 52.163 kg 52.163 kg Intake: Intake, IV Titration 475 Amount Dextrose 5% in Water 1, 100 000 ml @ 100 mls/hr IV . [id number] [facility] with Sodium Bicarb (1 Meq/ml) 150 ml Rx#:[id number] Sodium Chloride 0.9% 1, 375 000 ml @ 125 mls/hr IV . Q8H [facility] Rx#:[id number] Output: Urine 660 875 Other: Voiding Method Indwelling Catheter Indwelling Catheter - Labs CBC & Chem 7: 03/18/23 17:30 03/19/23 06:23 Labs: Abnormal Lab Results - Last 24 Hours (Table) 03/18/23 03/18/23 03/18/23 Range/Units 17:30 17:30 17:30 WBC 13.8 H (3.8-10.6) k/uL RBC 3.23 L (4.30-5.90) m/uL Hgb 9.9 L (13.0-17.5) gm/dL Hct 30.1 L (39.0-53.0) % Neutrophils # 12.2 H (1.3-7.7) k/uL Lymphocytes # 0.8 L (1.0-4.8) k/uL APTT (22.0-30.0) sec Chloride (96-109) mmol/L Carbon Dioxide 14 L (22-30) mmol/L Anion Gap (4.00-12.00) mmol/L BUN 87 H (9-20) mg/dL Creatinine 6.06 H (0.66-1.25) mg/dL Est GFR (CKD-EPI) (>=60) Glucose 273 H (74-99) mg/dL POC Glucose (mg/dL) (70-110) mg/dL Alkaline Phosphatase 141 H (38-126) U/L Urine Glucose (UA) Trace H (Negative) 03/18/23 03/19/23 03/19/23 Range/Units 18:12 05:57 06:23 WBC (3.8-10.6) k/uL RBC (4.30-5.90) m/uL Hgb (13.0-17.5) gm/dL Hct (39.0-53.0) % Neutrophils # (1.3-7.7) k/uL Lymphocytes # (1.0-4.8) k/uL APTT 18.9 L (22.0-30.0) sec Chloride 113 H (96-109) mmol/L Carbon Dioxide 16.9 L (22-30) mmol/L Anion Gap 15.10 H (4.00-12.00) mmol/L BUN 69.0 H (9-20) mg/dL Creatinine 4.0 H (0.66-1.25) mg/dL Est GFR (CKD-EPI) 15 L (>=60) Glucose 124 H (74-99) mg/dL POC Glucose (mg/dL) 144 H (70-110) mg/dL Alkaline Phosphatase (38-126) U/L Urine Glucose (UA) (Negative) 03/19/23 Range/Units 11:13 WBC (3.8-10.6) k/uL RBC (4.30-5.90) m/uL Hgb (13.0-17.5) gm/dL Hct (39.0-53.0) % Neutrophils # (1.3-7.7) k/uL Lymphocytes # (1.0-4.8) k/uL APTT (22.0-30.0) sec Chloride (96-109) mmol/L Carbon Dioxide (22-30) mmol/L Anion Gap (4.00-12.00) mmol/L BUN (9-20) mg/dL Creatinine (0.66-1.25) mg/dL Est GFR (CKD-EPI) (>=60) Glucose (74-99) mg/dL POC Glucose (mg/dL) 243 H (70-110) mg/dL Alkaline Phosphatase (38-126) U/L Urine Glucose (UA) (Negative)
[2023-03-19 16:46] LABS: Glucose,Whole Blood 310 mg/dL (70-110)
[2023-03-19 17:06] LABS: Basophils % (A) 0 %; Eosinophils % (A) 1 %; HCT 25.8 % (39.0-53.0); HGB 8.6 gm/dL (13.0-17.5); Lymphocytes # (A) 1.4 k/uL (1.0-4.8); Lymphocytes % (A) 17 %; MCH 31.4 pg (25.0-35.0); MCHC 33.4 g/dL (31.0-37.0); MCV 93.9 fL (80.0-100.0); Mean Platelet Volume 7.6; Monocytes # (A) 0.4 k/uL (0-1.0); Monocytes % (A) 6 %; Neutrophils % (A) 75 %; Platelet Count 386 k/uL (150-450); RBC 2.75 m/uL (4.30-5.90); RDW 13.1 % (11.5-15.5)
--- NOTE | 2023-03-19 19:36 | P.PN ---
Progress Note - Text Progress Note Date: 03/19/23 The [patient was treated with ebrt and lhrh therapy in 2013. The last psa we have in the office was in 2014 at 0.2. We received a psa from [facility] at 8.73. His prostate gland didnot feel cancerous. To deal with his urine retention the options would be lhrh therapy vs turp or both. I will discuss this with the as the patient has alzheimers
[2023-03-19 20:49] LABS: Glucose,Whole Blood 227 mg/dL (70-110)
[2023-03-19] MEDS: DONEPEZIL 5 MG TAB PO SCH (21:52)
[2023-03-20] MEDS: DEXTROSE 5% IN WATER 1,000 ML with SODIUM BICARB (1 MEQ/ML) 150 ML IV SCH ×2 (00:02→13:38)
[2023-03-20] MEDS: HEPARIN SODIUM,PORCINE 5,000 UNIT/ML 1 ML VIAL SQ SCH (00:03)
[2023-03-20 03:31] LABS: HCT 22.1 % (39.0-53.0); HGB 7.5 gm/dL (13.0-17.5); MCH 31.2 pg (25.0-35.0); MCHC 34.1 g/dL (31.0-37.0); MCV 91.5 fL (80.0-100.0); Mean Platelet Volume 7.9; Platelet Count 320 k/uL (150-450); RBC 2.41 m/uL (4.30-5.90); RDW 13.2 % (11.5-15.5); WBC 5.8 k/uL (3.8-10.6)
[2023-03-20 06:21] LABS: Glucose,Whole Blood 244 mg/dL (70-110)
[2023-03-20] MEDS: LEVOTHYROXINE 50 MCG TAB PO SCH (06:30)
[2023-03-20] MEDS: INSULIN ASPART (NovoLOG) 100 UNIT/ML VIAL SQ SCH ×4 (06:30→20:48)
--- NOTE | 2023-03-20 07:42 | P.PN ---
Subjective Progress Note Date: 03/20/23 The patient who has Alzheimer's is in the hospital with urine retention. He has a history of prostate cancer treated with radiation therapy and hormonal therapy in 2013. He has not seen urology in some time. He has had incontinence now for several months. He was catheterized for urine retention. He had a CAT scan that was unremarkable other than urine retention. His most recent PSA was 8.7. Objective - Vital Signs Vital signs: Vital Signs Temp 98.6 F 03/20/23 01:50 Pulse 87 03/20/23 01:50 Resp 19 03/20/23 01:50 BP 138/59 03/20/23 01:50 Pulse Ox 98 03/20/23 01:50 FiO2 Intake & Output 03/19/23 03/20/23 03/20/23 18:59 06:59 18:59 Intake Total 775 700 Output Total 1200 1565 Balance -425 -865 Weight 52.163 kg Intake: Intake, IV Titration 775 700 Amount Dextrose 5% in Water 1, 400 700 000 ml @ 100 mls/hr IV . [id number] [facility] with Sodium Bicarb (1 Meq/ml) 150 ml Rx#:[id number] Sodium Chloride 0.9% 1, 375 000 ml @ 125 mls/hr IV . Q8H [facility] Rx#:[id number] Output: Urine 1200 1565 Other: Voiding Method Indwelling Catheter Indwelling Catheter - Labs CBC & Chem 7: 03/20/23 02:58 03/19/23 06:23 Labs: Abnormal Lab Results - Last 24 Hours (Table) 03/19/23 03/19/23 03/19/23 Range/Units 06:23 11:13 12:56 RBC (4.30-5.90) m/uL Hgb (13.0-17.5) gm/dL Hct (39.0-53.0) % Chloride 113 H (96-109) mmol/L Carbon Dioxide 16.9 L (21.6-31.8) mmol/L Anion Gap 15.10 H (4.00-12.00) mmol/L BUN 69.0 H (9.0-27.0) mg/dL Creatinine 4.0 H (0.6-1.5) mg/dL Est GFR (CKD-EPI) 15 L (>=60) Glucose 124 H (70-110) mg/dL POC Glucose (mg/dL) 243 H (70-110) mg/dL Iron 54 L (65-175) UG/DL TIBC 216 L (228-460) UG/DL Transferrin 154.0 L (204.0-354.0) mg/dL Ferritin 485.0 H (22.0-322.0) ng/mL 03/19/23 03/19/23 03/19/23 Range/Units 16:36 16:45 20:47 RBC 2.75 L (4.30-5.90) m/uL Hgb 8.6 L (13.0-17.5) gm/dL Hct 25.8 L (39.0-53.0) % Chloride (96-109) mmol/L Carbon Dioxide (21.6-31.8) mmol/L Anion Gap (4.00-12.00) mmol/L BUN (9.0-27.0) mg/dL Creatinine (0.6-1.5) mg/dL Est GFR (CKD-EPI) (>=60) Glucose (70-110) mg/dL POC Glucose (mg/dL) 310 H 227 H (70-110) mg/dL Iron (65-175) UG/DL TIBC (228-460) UG/DL Transferrin (204.0-354.0) mg/dL Ferritin (22.0-322.0) ng/mL 03/20/23 03/20/23 Range/Units 02:58 06:20 RBC 2.41 L (4.30-5.90) m/uL Hgb 7.5 L (13.0-17.5) gm/dL Hct 22.1 L (39.0-53.0) % Chloride (96-109) mmol/L Carbon Dioxide (21.6-31.8) mmol/L Anion Gap (4.00-12.00) mmol/L BUN (9.0-27.0) mg/dL Creatinine (0.6-1.5) mg/dL Est GFR (CKD-EPI) (>=60) Glucose (70-110) mg/dL POC Glucose (mg/dL) 244 H (70-110) mg/dL Iron (65-175) UG/DL TIBC (228-460) UG/DL Transferrin (204.0-354.0) mg/dL Ferritin (22.0-322.0) ng/mL Assessment and Plan Assessment: Impression: Prostate cancer, recurrent. Urine retention possibly due to prostate cancer. Alzheimer's, insulin-dependent diabetes Recommend: The patient's urine retention does not appear to be neurologic based on the CAT scan. There does not appear to be any spinal cord compression. He is developing some sedation. I question whether he may have some regrowth was cancer in the prostate. His Alzheimer's and the ability for his to move him to the hospital and doctors office complicates the treatment plan. We will see how he responds with the urine retention with respect to his kidney failure. Decisions on short and long-term management of his urine retention will be made prior to discharge.
[2023-03-20] MEDS: FERROUS SULFATE 325 MG TAB PO SCH (08:19)
[2023-03-20 09:03] LABS: Magnesium 1.6 mg/dL (1.5-2.4)
--- NOTE | 2023-03-20 09:26 | CDI ---
Documentation Clarification Form Date: 03/20/2023 09:12:13 AM From: Radha Valdez RN CCDS Phone: [phone] Admit Date: 03/18/2023 09:37:00 PM Patient Name: Abelardo Singh Visit Number: [id number] Discharge Date: ATTENTION: The Clinical Documentation Specialists (CDI) and [facility] Coding Staff appreciate your assistance in clarifying documentation. Please respond to the clarification below the line at the bottom and electronically sign. The CDI & [facility] Coding staff will review the response and follow-up if needed. Please note: Queries are made part of the Legal Health Record. If you have any questions, please contact the author of this message via ITS. Dr. Ya Ann Patient has a documented BMI of 18.0kg, 03/19, Nutritional assessment. Additional clarification is requested. History/Risk Factors: 77-year-old male presented to the ED with intermittent abdominal pain for a few months. Over the past few days sleeping more than usual, little oral intake and hasnt urinated in a couple of days. Medical History: Prostate Cancer, dementia and DM. Clinical Indicators: Nutritional Assessment, 03/18 Patients weight is: 52.163kg estimated by staff Patients height is: 5 foot 7 inches Calculated BMI is: 18.0 Estimated Protein needs grams/day 65; Estimated Fluid needs mls/day 1560 1820 Underweight related to predicted suboptimal energy intake with dementia Consistent CHO diet for home and oral supplements for weight gain. Treatments: Meals and Snacks Carbohydrate modified diet; Supplement Glucerna TID Monitor PO and Supplement Intake Dietary Consult above in Nutritional Assessment 03/18 Calorie Count Please clarify, is there is an additional diagnosis that is clinically appropriate for this patient? [ ] Cachexia [x] Malnutrition, moderate protein calorie [ ] Other, please specify [ ] Unable to determine (Template Last Revised: July 2020) MTDD
[2023-03-20 09:41] LABS: BUN/Creat Ratio 23.36 Ratio (12.00-20.00); Blood Urea Nitrogen 51.4 mg/dL (9.0-27.0); Calcium 8.1 mg/dL (8.7-10.3); Carbon Dioxide 24.3 mmol/L (21.6-31.8); Chloride 104 mmol/L (96-109); Glucose 206 mg/dL (70-110); Potassium 3.6 mmol/L (3.5-5.5); Sodium 140 mmol/L (135-145)
[2023-03-20 11:38] LABS: Glucose,Whole Blood 375 mg/dL (70-110)
[2023-03-20] MEDS ORDERED: POTASSIUM CHLORIDE ER 20 MEQ TAB.ER PO STA (12:08)
--- NOTE | 2023-03-20 12:09 | P.PN ---
Subjective Patient is seen in follow for acute kidney injury. Renal function improving. Has Mccord catheter. Nonoliguric. Oral intake poor. Hemodynamically stable. Family present at bedside. Vital signs are stable. General: No acute distress. HEENT: Head exam is unremarkable. LUNGS: No audible rhonchi or wheezes. HEART: Rate and Rhythm are regular. ABDOMEN: Nontender. EXTREMITITES: No edema. Objective - Vital Signs Vital signs: Vital Signs Temp 98.1 F 03/20/23 08:00 Pulse 114 H 03/20/23 08:00 Resp 16 03/20/23 08:00 BP 117/71 03/20/23 08:00 Pulse Ox 95 03/20/23 08:00 FiO2 Intake & Output 03/19/23 03/20/23 03/20/23 18:59 06:59 18:59 Intake Total 775 700 Output Total 1200 1565 300 Balance -425 -865 -300 Weight 52.163 kg Intake: Intake, IV Titration 775 700 Amount Dextrose 5% in Water 1, 400 700 000 ml @ 100 mls/hr IV . [id number] [facility] with Sodium Bicarb (1 Meq/ml) 150 ml Rx#:[id number] Sodium Chloride 0.9% 1, 375 000 ml @ 125 mls/hr IV . Q8H [facility] Rx#:[id number] Output: Urine 1200 1565 300 Other: Voiding Method Indwelling Catheter Indwelling Catheter Indwelling Catheter - Labs CBC & Chem 7: 03/20/23 02:58 03/20/23 02:58 Labs: Abnormal Lab Results - Last 24 Hours (Table) 03/19/23 03/19/23 03/19/23 Range/Units 12:56 16:36 16:45 RBC 2.75 L (4.30-5.90) m/uL Hgb 8.6 L (13.0-17.5) gm/dL Hct 25.8 L (39.0-53.0) % BUN (9.0-27.0) mg/dL Creatinine (0.6-1.5) mg/dL Est GFR (CKD-EPI) (>=60) BUN/Creatinine Ratio (12.00-20.00) Ratio Glucose (70-110) mg/dL POC Glucose (mg/dL) 310 H (70-110) mg/dL Hemoglobin A1c (<=6.0) % Calcium (8.7-10.3) mg/dL Iron 54 L (65-175) UG/DL TIBC 216 L (228-460) UG/DL Transferrin 154.0 L (204.0-354.0) mg/dL Ferritin 485.0 H (22.0-322.0) ng/mL 03/19/23 03/20/23 03/20/23 Range/Units 20:47 02:58 02:58 RBC (4.30-5.90) m/uL Hgb (13.0-17.5) gm/dL Hct (39.0-53.0) % BUN 51.4 H (9.0-27.0) mg/dL Creatinine 2.2 H (0.6-1.5) mg/dL Est GFR (CKD-EPI) 30 L (>=60) BUN/Creatinine Ratio 23.36 H (12.00-20.00) Ratio Glucose 206 H (70-110) mg/dL POC Glucose (mg/dL) 227 H (70-110) mg/dL Hemoglobin A1c 6.9 H (<=6.0) % Calcium 8.1 L (8.7-10.3) mg/dL Iron (65-175) UG/DL TIBC (228-460) UG/DL Transferrin (204.0-354.0) mg/dL Ferritin (22.0-322.0) ng/mL 03/20/23 03/20/23 03/20/23 Range/Units 02:58 06:20 11:36 RBC 2.41 L (4.30-5.90) m/uL Hgb 7.5 L (13.0-17.5) gm/dL Hct 22.1 L (39.0-53.0) % BUN (9.0-27.0) mg/dL Creatinine (0.6-1.5) mg/dL Est GFR (CKD-EPI) (>=60) BUN/Creatinine Ratio (12.00-20.00) Ratio Glucose (70-110) mg/dL POC Glucose (mg/dL) 244 H 375 H (70-110) mg/dL Hemoglobin A1c (<=6.0) % Calcium (8.7-10.3) mg/dL Iron (65-175) UG/DL TIBC (228-460) UG/DL Transferrin (204.0-354.0) mg/dL Ferritin (22.0-322.0) ng/mL Assessment and Plan Plan: Assessment: 1. Acute kidney injury secondary to obstructive uropathy. Creatinine 6 on admission and is 2.2 today. Unknown baseline renal function. UA benign. 2. Bilateral hydronephrosis being followed by urology. Currently has a Mccord catheter. 3. Benign hypertension. Controlled. 4. Anemia. Iron replete. 5. Metabolic acidosis secondary to acute kidney injury. Improved with bicarb drip. 6. Diabetes mellitus. 7. Hypomagnesemia from poor intake. Plan: Stop bicarb drip. Start normal saline at 75 mL an hour. Continue to hold antihypertensives. Encouraged oral intake. Avoid nephrotoxins. Continue to monitor renal function and urine output. Add oral magnesium oxide.
--- NOTE | 2023-03-20 13:24 | P.PN ---
Subjective Progress Note Date: 03/20/23 No new complaints. Seen by urology and nephrology, apprecaite recommendations. Gen: awake, alert HEENT: normocephalic, atraumatic, good hearing acuity, moist mucous membranes Resp: good air exchange, breathing comfortably with no accessory muscle use CVS: good distal perfusion x 4, GI: soft, NTTP, ND : no SPT, no CVAT, rowe catheter is present MSK: no pitting edema, no clubbing Neuro: non-focal, moving all extremities Psych: cooperative, euthymic mood Assessment/plan: 77-year-old male coming in with urinary retention and overflow incontinence with history of prostate cancer I discussed the case with the ED doctor and accepted the admission for acute kidney injury secondary to obstructive uropathy with anticipated length of stay more than 2 midnights Acute kidney injury secondary to obstructive uropathy with prostate cancer History of prostate cancer status post treatment however recent blood work showed an increase in PSA which is suspicious for possible recurrence of cancer Urology consult, appreciated nephrology consult, appreciated Rowe catheter was inserted and maintained Monitor urine output and avoid postobstructive nephrogenic diabetes insipidus Monitor renal function White count 13.8, afebrile monitor off antibiotics for now Anemia Hemoglobin 9.9 unknown baseline No reported GI bleeding Acute kidney injury with unknown baseline creatinine IV fluid hydration with normal saline status post 1 L bolus continue with 100 mL/h Rowe catheter placed, Hypothyroid Resume levothyroxine Dementia Continue with Aricept Full code DVT prophylaxis heparin subcu 3 times a day Objective - Vital Signs Vital signs: Vital Signs Temp 98.1 F 03/20/23 08:00 Pulse 114 H 03/20/23 08:00 Resp 16 03/20/23 08:00 BP 117/71 03/20/23 08:00 Pulse Ox 95 03/20/23 08:00 FiO2 Intake & Output 03/19/23 03/20/23 03/20/23 18:59 06:59 18:59 Intake Total 775 700 Output Total 1200 1565 300 Balance -425 -865 -300 Weight 52.163 kg Intake: Intake, IV Titration 775 700 Amount Dextrose 5% in Water 1, 400 700 000 ml @ 100 mls/hr IV . [id number] [facility] with Sodium Bicarb (1 Meq/ml) 150 ml Rx#:[id number] Sodium Chloride 0.9% 1, 375 000 ml @ 125 mls/hr IV . Q8H [facility] Rx#:[id number] Output: Urine 1200 1565 300 Other: Voiding Method Indwelling Catheter Indwelling Catheter Indwelling Catheter - Labs CBC & Chem 7: 03/20/23 02:58 03/20/23 02:58 Labs: Abnormal Lab Results - Last 24 Hours (Table) 03/19/23 03/19/23 03/19/23 Range/Units 12:56 16:36 16:45 RBC 2.75 L (4.30-5.90) m/uL Hgb 8.6 L (13.0-17.5) gm/dL Hct 25.8 L (39.0-53.0) % BUN (9.0-27.0) mg/dL Creatinine (0.6-1.5) mg/dL Est GFR (CKD-EPI) (>=60) BUN/Creatinine Ratio (12.00-20.00) Ratio Glucose (70-110) mg/dL POC Glucose (mg/dL) 310 H (70-110) mg/dL Hemoglobin A1c (<=6.0) % Calcium (8.7-10.3) mg/dL Iron 54 L (65-175) UG/DL TIBC 216 L (228-460) UG/DL Transferrin 154.0 L (204.0-354.0) mg/dL Ferritin 485.0 H (22.0-322.0) ng/mL 03/19/23 03/20/23 03/20/23 Range/Units 20:47 02:58 02:58 RBC (4.30-5.90) m/uL Hgb (13.0-17.5) gm/dL Hct (39.0-53.0) % BUN 51.4 H (9.0-27.0) mg/dL Creatinine 2.2 H (0.6-1.5) mg/dL Est GFR (CKD-EPI) 30 L (>=60) BUN/Creatinine Ratio 23.36 H (12.00-20.00) Ratio Glucose 206 H (70-110) mg/dL POC Glucose (mg/dL) 227 H (70-110) mg/dL Hemoglobin A1c 6.9 H (<=6.0) % Calcium 8.1 L (8.7-10.3) mg/dL Iron (65-175) UG/DL TIBC (228-460) UG/DL Transferrin (204.0-354.0) mg/dL Ferritin (22.0-322.0) ng/mL 03/20/23 03/20/23 03/20/23 Range/Units 02:58 06:20 11:36 RBC 2.41 L (4.30-5.90) m/uL Hgb 7.5 L (13.0-17.5) gm/dL Hct 22.1 L (39.0-53.0) % BUN (9.0-27.0) mg/dL Creatinine (0.6-1.5) mg/dL Est GFR (CKD-EPI) (>=60) BUN/Creatinine Ratio (12.00-20.00) Ratio Glucose (70-110) mg/dL POC Glucose (mg/dL) 244 H 375 H (70-110) mg/dL Hemoglobin A1c (<=6.0) % Calcium (8.7-10.3) mg/dL Iron (65-175) UG/DL TIBC (228-460) UG/DL Transferrin (204.0-354.0) mg/dL Ferritin (22.0-322.0) ng/mL
[2023-03-20] MEDS: SODIUM CHLORIDE 0.9% 1,000 ML IV SCH (13:40)
[2023-03-20] MEDS: MAGNESIUM OXIDE 400 MG TAB PO SCH ×2 (13:41→20:48)
[2023-03-20 14:23] LABS: Basophils % (A) 0 %; Eosinophils % (A) 0 %; HCT 23.2 % (39.0-53.0); HGB 7.9 gm/dL (13.0-17.5); Lymphocytes # (A) 0.7 k/uL (1.0-4.8); Lymphocytes % (A) 11 %; MCHC 34.1 g/dL (31.0-37.0); MCV 93.6 fL (80.0-100.0); Mean Platelet Volume 8.7; Monocytes # (A) 0.3 k/uL (0-1.0); Monocytes % (A) 5 %; Neutrophils # (A) 5.6 k/uL (1.3-7.7); Neutrophils % (A) 83 %; Platelet Count 326 k/uL (150-450); RBC 2.48 m/uL (4.30-5.90); WBC 6.7 k/uL (3.8-10.6)
[2023-03-20 16:50] LABS: Glucose,Whole Blood 294 mg/dL (70-110)
[2023-03-20] MEDS: metFORMIN 500 MG TAB PO SCH (17:09)
[2023-03-20] MEDS ORDERED: MELATONIN 5 MG TABLET PO ONE (19:42)
[2023-03-20 20:09] LABS: Glucose,Whole Blood 189 mg/dL (70-110)
[2023-03-20] MEDS: DONEPEZIL 5 MG TAB PO SCH (20:48)
[2023-03-21] MEDS ORDERED: LOPERAMIDE 2 MG CAP PO STA (00:06)
[2023-03-21] MEDS: SODIUM CHLORIDE 0.9% 1,000 ML IV SCH ×2 (01:34→17:10)
[2023-03-21 06:09] LABS: Glucose,Whole Blood 215 mg/dL (70-110)
[2023-03-21] MEDS: LEVOTHYROXINE 50 MCG TAB PO SCH (06:36)
[2023-03-21] MEDS: metFORMIN 500 MG TAB PO SCH ×2 (06:36→17:08)
[2023-03-21] MEDS: INSULIN ASPART (NovoLOG) 100 UNIT/ML VIAL SQ SCH ×5 (06:37→21:06)
[2023-03-21 08:00] LABS: Basophils % (A) 0 %; Eosinophils # (A) 0.1 k/uL (0-0.7); Eosinophils % (A) 2 %; HCT 23.7 % (39.0-53.0); HGB 7.7 gm/dL (13.0-17.5); Lymphocytes # (A) 1.3 k/uL (1.0-4.8); Lymphocytes % (A) 22 %; MCH 30.5 pg (25.0-35.0); MCHC 32.3 g/dL (31.0-37.0); MCV 94.2 fL (80.0-100.0); Mean Platelet Volume 8.2; Monocytes # (A) 0.4 k/uL (0-1.0); Monocytes % (A) 7 %; Neutrophils % (A) 68 %; Platelet Count 347 k/uL (150-450); RBC 2.51 m/uL (4.30-5.90); RDW 13.1 % (11.5-15.5); WBC 5.8 k/uL (3.8-10.6)
[2023-03-21 08:03] LABS: African American GFR (CKD) 59 (>60 ml/min/1.73 sqM); Anion Gap 6 mmol/L; Blood Urea Nitrogen 31 mg/dL (9-20); Carbon Dioxide 28 mmol/L (22-30); Chloride 105 mmol/L (98-107); Glucose 181 mg/dL (74-99); Magnesium 1.8 mg/dL (1.6-2.3); Non-African American GFR(CKD) 51 (>60 ml/min/1.73 sqM); Potassium 3.9 mmol/L (3.5-5.1); Sodium 139 mmol/L (137-145)
[2023-03-21] MEDS: FERROUS SULFATE 325 MG TAB PO SCH (09:19)
[2023-03-21] MEDS: MAGNESIUM OXIDE 400 MG TAB PO SCH ×2 (09:19→21:07)
--- NOTE | 2023-03-21 11:32 | P.PN ---
Subjective Patient is seen in follow for acute kidney injury. Renal function improving. Has Mccord catheter. Nonoliguric. Oral intake fair. Hemodynamically stable. Vital signs are stable. General: No acute distress. HEENT: Head exam is unremarkable. LUNGS: No audible rhonchi or wheezes. HEART: Rate and Rhythm are regular. ABDOMEN: Nontender. EXTREMITITES: No edema. Objective - Vital Signs Vital signs: Vital Signs Temp 98.5 F 03/21/23 07:05 Pulse 85 03/21/23 07:05 Resp 18 03/21/23 07:05 BP 135/68 03/21/23 07:05 Pulse Ox 97 03/21/23 07:05 FiO2 Intake & Output 03/20/23 03/21/23 03/21/23 18:59 06:59 18:59 Intake Total 1225 Output Total 1004 1120 725 Balance 221 -1120 -725 Intake: Intake, IV Titration 775 Amount Dextrose 5% in Water 1, 550 000 ml @ 100 mls/hr IV . [id number] [facility] with Sodium Bicarb (1 Meq/ml) 150 ml Rx#:[id number] Sodium Chloride 0.9% 1, 225 000 ml @ 75 mls/hr IV . [id number] [facility] Rx#:[id number] Oral 450 Output: Urine 1004 1120 725 Uretheral (Mccord) 100 Other: Voiding Method Indwelling Catheter Indwelling Catheter Indwelling Catheter # Bowel Movements 3 - Labs CBC & Chem 7: 03/21/23 07:15 03/21/23 07:15 Labs: Abnormal Lab Results - Last 24 Hours (Table) 03/20/23 03/20/23 03/20/23 Range/Units 11:36 14:09 16:48 RBC 2.48 L (4.30-5.90) m/uL Hgb 7.9 L (13.0-17.5) gm/dL Hct 23.2 L (39.0-53.0) % Lymphocytes # 0.7 L (1.0-4.8) k/uL BUN (9-20) mg/dL Creatinine (0.66-1.25) mg/dL Glucose (74-99) mg/dL POC Glucose (mg/dL) 375 H 294 H (70-110) mg/dL Calcium (8.4-10.2) mg/dL 03/20/23 03/21/23 03/21/23 Range/Units 20:08 06:05 07:15 RBC 2.51 L (4.30-5.90) m/uL Hgb 7.7 L (13.0-17.5) gm/dL Hct 23.7 L (39.0-53.0) % Lymphocytes # (1.0-4.8) k/uL BUN (9-20) mg/dL Creatinine (0.66-1.25) mg/dL Glucose (74-99) mg/dL POC Glucose (mg/dL) 189 H 215 H (70-110) mg/dL Calcium (8.4-10.2) mg/dL 03/21/23 Range/Units 07:15 RBC (4.30-5.90) m/uL Hgb (13.0-17.5) gm/dL Hct (39.0-53.0) % Lymphocytes # (1.0-4.8) k/uL BUN 31 H (9-20) mg/dL Creatinine 1.35 H (0.66-1.25) mg/dL Glucose 181 H (74-99) mg/dL POC Glucose (mg/dL) (70-110) mg/dL Calcium 8.0 L (8.4-10.2) mg/dL Assessment and Plan Plan: Assessment: 1. Acute kidney injury secondary to obstructive uropathy. Creatinine 6 on admission and is 1.35 today. Unknown baseline renal function. UA benign. 2. Bilateral hydronephrosis being followed by urology. Currently has a Mccord catheter. 3. Benign hypertension. Controlled. 4. Anemia. Iron replete. 5. Metabolic acidosis secondary to acute kidney injury. Improved with bicarb drip. 6. Diabetes mellitus. 7. Hypomagnesemia from poor intake. On mag-ox. Plan: Maintan normal saline at 75 mL an hour. Continue to hold antihypertensives. Encouraged oral intake. Avoid nephrotoxins. Continue to monitor renal function and urine output.
--- NOTE | 2023-03-21 11:54 | P.PN ---
Subjective Progress Note Date: 03/21/23 No new complaints. Seen by urology and nephrology, apprecaite recommendations. Gen: awake, alert HEENT: normocephalic, atraumatic, good hearing acuity, moist mucous membranes Resp: good air exchange, breathing comfortably with no accessory muscle use CVS: good distal perfusion x 4, GI: soft, NTTP, ND : no SPT, no CVAT, rowe catheter is present MSK: no pitting edema, no clubbing Neuro: non-focal, moving all extremities Psych: cooperative, euthymic mood Assessment/plan: 77-year-old male coming in with urinary retention and overflow incontinence with history of prostate cancer I discussed the case with the ED doctor and accepted the admission for acute kidney injury secondary to obstructive uropathy with anticipated length of stay more than 2 midnights Acute kidney injury secondary to obstructive uropathy with prostate cancer History of prostate cancer status post treatment however recent blood work showed an increase in PSA which is suspicious for possible recurrence of cancer Urology consult, appreciated nephrology consult, appreciated Rowe catheter was inserted and maintained Monitor urine output and avoid postobstructive nephrogenic diabetes insipidus Monitor renal function White count 13.8, afebrile monitor off antibiotics for now Anemia Hematuria Hemoglobin 7.9, reviewed today No reported GI bleeding Acute kidney injury with unknown baseline creatinine IV fluid hydration with normal saline status post 1 L bolus continue with 100 mL/h Rowe catheter placed, Hypothyroid Resume levothyroxine Dementia Continue with Aricept Full code DVT prophylaxis heparin subcu 3 times a day Objective - Vital Signs Vital signs: Vital Signs Temp 98.5 F 03/21/23 07:05 Pulse 85 03/21/23 07:05 Resp 18 03/21/23 07:05 BP 135/68 03/21/23 07:05 Pulse Ox 97 03/21/23 07:05 FiO2 Intake & Output 03/20/23 03/21/23 03/21/23 18:59 06:59 18:59 Intake Total 1225 Output Total 1004 1120 725 Balance 221 1120 -725 Intake: Intake, IV Titration 775 Amount Dextrose 5% in Water 1, 550 000 ml @ 100 mls/hr IV . [id number] [facility] with Sodium Bicarb (1 Meq/ml) 150 ml Rx#:[id number] Sodium Chloride 0.9% 1, 225 000 ml @ 75 mls/hr IV . [id number] [facility] Rx#:[id number] Oral 450 Output: Urine 1004 1120 725 Uretheral (Rowe) 100 Other: Voiding Method Indwelling Catheter Indwelling Catheter Indwelling Catheter # Bowel Movements 3 - Labs CBC & Chem 7: 03/21/23 07:15 03/21/23 07:15 Labs: Abnormal Lab Results - Last 24 Hours (Table) 03/20/23 03/20/23 03/20/23 Range/Units 14:09 16:48 20:08 RBC 2.48 L (4.30-5.90) m/uL Hgb 7.9 L (13.0-17.5) gm/dL Hct 23.2 L (39.0-53.0) % Lymphocytes # 0.7 L (1.0-4.8) k/uL BUN (9-20) mg/dL Creatinine (0.66-1.25) mg/dL Glucose (74-99) mg/dL POC Glucose (mg/dL) 294 H 189 H (70-110) mg/dL Calcium (8.4-10.2) mg/dL 03/21/23 03/21/23 03/21/23 Range/Units 06:05 07:15 07:15 RBC 2.51 L (4.30-5.90) m/uL Hgb 7.7 L (13.0-17.5) gm/dL Hct 23.7 L (39.0-53.0) % Lymphocytes # (1.0-4.8) k/uL BUN 31 H (9-20) mg/dL Creatinine 1.35 H (0.66-1.25) mg/dL Glucose 181 H (74-99) mg/dL POC Glucose (mg/dL) 215 H (70-110) mg/dL Calcium 8.0 L (8.4-10.2) mg/dL
[2023-03-21 12:07] LABS: Glucose,Whole Blood 250 mg/dL (70-110)
[2023-03-21 16:54] LABS: Glucose,Whole Blood 258 mg/dL (70-110)
[2023-03-21] MEDS ORDERED: MELATONIN 5 MG TABLET PO SCH (21:00)
[2023-03-21 21:01] LABS: Glucose,Whole Blood 201 mg/dL (70-110)
[2023-03-21] MEDS: DONEPEZIL 5 MG TAB PO SCH (21:07)
[2023-03-21] MEDS: MELATONIN 5 MG TABLET PO PRN (21:07)
[2023-03-22] MEDS: SODIUM CHLORIDE 0.9% 1,000 ML IV SCH ×2 (05:47→17:57)
[2023-03-22 06:06] LABS: Glucose,Whole Blood 194 mg/dL (70-110)
[2023-03-22] MEDS: INSULIN ASPART (NovoLOG) 100 UNIT/ML VIAL SQ SCH ×4 (06:21→21:15)
[2023-03-22] MEDS: LEVOTHYROXINE 50 MCG TAB PO SCH (06:22)
[2023-03-22] MEDS: metFORMIN 500 MG TAB PO SCH ×2 (06:22→17:45)
[2023-03-22] MEDS: FERROUS SULFATE 325 MG TAB PO SCH (09:22)
[2023-03-22] MEDS: TAMSULOSIN 0.4 MG CAP.ER.24H PO SCH (09:23)
[2023-03-22] MEDS: MAGNESIUM OXIDE 400 MG TAB PO SCH ×2 (09:23→21:15)
[2023-03-22 10:24] LABS: BUN/Creat Ratio 18.38 Ratio (12.00-20.00); Blood Urea Nitrogen 23.9 mg/dL (9.0-27.0); Carbon Dioxide 25.3 mmol/L (21.6-31.8); Chloride 106 mmol/L (96-109); Glucose 184 mg/dL (70-110); Magnesium 1.8 mg/dL (1.5-2.4); Potassium 4.3 mmol/L (3.5-5.5); Sodium 142 mmol/L (135-145)
--- NOTE | 2023-03-22 10:50 | P.PN ---
Subjective Patient is seen in follow for acute kidney injury. Renal function significantly improved with Mccord catheter insertion. Nonoliguric. Oral intake fair. Hemodynamically stable. Family present at bedside. Vital signs are stable. General: No acute distress. HEENT: Head exam is unremarkable. LUNGS: No audible rhonchi or wheezes. HEART: Rate and Rhythm are regular. ABDOMEN: Nontender. EXTREMITITES: No edema. Objective - Vital Signs Vital signs: Vital Signs Temp 98.7 F 03/22/23 08:00 Pulse 83 03/22/23 08:00 Resp 19 03/22/23 08:00 BP 168/71 03/22/23 08:00 Pulse Ox 96 03/22/23 08:00 FiO2 Intake & Output 03/21/23 03/22/23 03/22/23 18:59 06:59 18:59 Intake Total 1140 100 Output Total 2245 634 4162 Balance -285 -600 -2200 Intake: IV 900 Sodium Chloride 0.9% 1, 900 000 ml @ 75 mls/hr IV . [id number] [facility] Rx#:[id number] Oral 240 100 Output: Urine 9443 691 7505 Uretheral (Mccord) 400 2300 Other: Voiding Method Indwelling Catheter Indwelling Catheter Indwelling Catheter - Labs CBC & Chem 7: 03/21/23 07:15 03/22/23 07:01 Labs: Abnormal Lab Results - Last 24 Hours (Table) 03/21/23 03/21/23 03/21/23 Range/Units 12:02 16:53 20:59 Est GFR (CKD-EPI) (>=60) Glucose (70-110) mg/dL POC Glucose (mg/dL) 250 H 258 H 201 H (70-110) mg/dL Calcium (8.7-10.3) mg/dL 03/22/23 03/22/23 Range/Units 06:04 07:01 Est GFR (CKD-EPI) 57 L (>=60) Glucose 184 H (70-110) mg/dL POC Glucose (mg/dL) 194 H (70-110) mg/dL Calcium 8.0 L (8.7-10.3) mg/dL Assessment and Plan Plan: Assessment: 1. Acute kidney injury secondary to obstructive uropathy. Creatinine 6 on admission and is 1.3 today. Unknown baseline renal function. UA benign. 2. Bilateral hydronephrosis being followed by urology. Currently has a Mccord catheter. 3. Benign hypertension. 4. Anemia. Iron replete. 5. Metabolic acidosis secondary to acute kidney injury. Status post bicarb drip. Improved. 6. Diabetes mellitus. 7. Hypomagnesemia from poor intake. On mag-ox. Stable. Plan: Maintain normal saline at 75 mL an hour. Resume home dose lisinopril. Encouraged oral intake. Avoid nephrotoxins. Continue to monitor renal function and urine output.
--- NOTE | 2023-03-22 11:30 | P.PN ---
Subjective Progress Note Date: 03/22/23 The patient is in the hospital with urinary retention and overflow incontinence. He has a history of prostate cancer treated with radiation. His PSA has risen to 8. He is not been seen in our office in several years. Question is whether the urine retention is related to the cancer. He has been placed on Flomax. If that does not controls retention then he'll need further evaluation and possible hormone therapy to relieve his urine retention. This has been discussed with the . Objective - Vital Signs Vital signs: Vital Signs Temp 98.7 F 03/22/23 08:00 Pulse 83 03/22/23 08:00 Resp 19 03/22/23 08:00 BP 168/71 03/22/23 08:00 Pulse Ox 96 03/22/23 08:00 FiO2 Intake & Output 03/21/23 03/22/23 03/22/23 18:59 06:59 18:59 Intake Total 1140 100 Output Total 5825 789 1870 Balance -285 -600 -2200 Intake: IV 900 Sodium Chloride 0.9% 1, 900 000 ml @ 75 mls/hr IV . [id number] [facility] Rx#:[id number] Oral 240 100 Output: Urine 1687 934 0816 Uretheral (Mccord) 400 2300 Other: Voiding Method Indwelling Catheter Indwelling Catheter Indwelling Catheter - Labs CBC & Chem 7: 03/21/23 07:15 03/22/23 07:01 Labs: Abnormal Lab Results - Last 24 Hours (Table) 03/21/23 03/21/23 03/21/23 Range/Units 12:02 16:53 20:59 Est GFR (CKD-EPI) (>=60) Glucose (70-110) mg/dL POC Glucose (mg/dL) 250 H 258 H 201 H (70-110) mg/dL Calcium (8.7-10.3) mg/dL 03/22/23 03/22/23 Range/Units 06:04 07:01 Est GFR (CKD-EPI) 57 L (>=60) Glucose 184 H (70-110) mg/dL POC Glucose (mg/dL) 194 H (70-110) mg/dL Calcium 8.0 L (8.7-10.3) mg/dL
--- NOTE | 2023-03-22 11:47 | P.PN ---
Subjective Progress Note Date: 03/22/23 No new complaints. Seen by urology and nephrology, apprecaite recommendations. Gen: awake, alert HEENT: normocephalic, atraumatic, good hearing acuity, moist mucous membranes Resp: good air exchange, breathing comfortably with no accessory muscle use CVS: good distal perfusion x 4, GI: soft, NTTP, ND : no SPT, no CVAT, rowe catheter is present MSK: no pitting edema, no clubbing Neuro: non-focal, moving all extremities Psych: cooperative, euthymic mood Assessment/plan: 77-year-old male coming in with urinary retention and overflow incontinence with history of prostate cancer I discussed the case with the ED doctor and accepted the admission for acute kidney injury secondary to obstructive uropathy with anticipated length of stay more than 2 midnights Acute kidney injury secondary to obstructive uropathy with prostate cancer History of prostate cancer status post treatment however recent blood work showed an increase in PSA which is suspicious for possible recurrence of cancer Urology consult, appreciated nephrology consult, appreciated Rowe catheter was inserted and maintained Monitor urine output and avoid postobstructive nephrogenic diabetes insipidus Monitor renal function, Cr = 1.3 Anemia Hematuria Hemoglobin 7.9, reviewed today No reported GI bleeding Acute kidney injury with unknown baseline creatinine IV fluid hydration with normal saline status post 1 L bolus continue with 100 mL/h Rowe catheter placed, Hypothyroid Resume levothyroxine Dementia Continue with Aricept Full code DVT prophylaxis heparin subcu 3 times a day Dispo plan: patient will llikely go home with home care services, once cleared by nephrology and urology Objective - Vital Signs Vital signs: Vital Signs Temp 98.7 F 03/22/23 08:00 Pulse 83 03/22/23 08:00 Resp 19 03/22/23 08:00 BP 168/71 03/22/23 08:00 Pulse Ox 96 03/22/23 08:00 FiO2 Intake & Output 03/21/23 03/22/23 03/22/23 18:59 06:59 18:59 Intake Total 1140 100 Output Total 9684 011 7292 Balance -285 -600 -2200 Intake: IV 900 Sodium Chloride 0.9% 1, 900 000 ml @ 75 mls/hr IV . [id number] [facility] Rx#:[id number] Oral 240 100 Output: Urine 3074 806 2330 Uretheral (Rowe) 400 2300 Other: Voiding Method Indwelling Catheter Indwelling Catheter Indwelling Catheter - Labs CBC & Chem 7: 03/21/23 07:15 03/22/23 07:01 Labs: Abnormal Lab Results - Last 24 Hours (Table) 03/21/23 03/21/23 03/21/23 Range/Units 12:02 16:53 20:59 Est GFR (CKD-EPI) (>=60) Glucose (70-110) mg/dL POC Glucose (mg/dL) 250 H 258 H 201 H (70-110) mg/dL Calcium (8.7-10.3) mg/dL 03/22/23 03/22/23 Range/Units 06:04 07:01 Est GFR (CKD-EPI) 57 L (>=60) Glucose 184 H (70-110) mg/dL POC Glucose (mg/dL) 194 H (70-110) mg/dL Calcium 8.0 L (8.7-10.3) mg/dL
[2023-03-22 12:03] LABS: Glucose,Whole Blood 236 mg/dL (70-110)
[2023-03-22 16:45] LABS: Glucose,Whole Blood 193 mg/dL (70-110)
[2023-03-22 19:42] LABS: Glucose,Whole Blood 216 mg/dL (70-110)
[2023-03-22] MEDS: MELATONIN 5 MG TABLET PO PRN (21:15)
[2023-03-22] MEDS: DONEPEZIL 5 MG TAB PO SCH (21:15)
[2023-03-23] MEDS: SODIUM CHLORIDE 0.9% 1,000 ML IV SCH ×2 (05:14→07:45)
[2023-03-23 05:45] LABS: Glucose,Whole Blood 176 mg/dL (70-110)
[2023-03-23] MEDS: INSULIN ASPART (NovoLOG) 100 UNIT/ML VIAL SQ SCH ×4 (06:45→21:13)
[2023-03-23] MEDS: metFORMIN 500 MG TAB PO SCH ×2 (06:45→17:38)
[2023-03-23] MEDS: LEVOTHYROXINE 50 MCG TAB PO SCH (06:46)
[2023-03-23] MEDS: MAGNESIUM OXIDE 400 MG TAB PO SCH ×2 (10:13→21:14)
[2023-03-23] MEDS: FERROUS SULFATE 325 MG TAB PO SCH (10:13)
[2023-03-23] MEDS: TAMSULOSIN 0.4 MG CAP.ER.24H PO SCH (10:13)
[2023-03-23 10:31] LABS: African American GFR (CKD) 66 (>60 ml/min/1.73 sqM); Anion Gap 11 mmol/L; Blood Urea Nitrogen 21 mg/dL (9-20); Calcium 8.8 mg/dL (8.4-10.2); Carbon Dioxide 26 mmol/L (22-30); Chloride 103 mmol/L (98-107); Glucose 244 mg/dL (74-99); Non-African American GFR(CKD) 57 (>60 ml/min/1.73 sqM); Potassium 4.1 mmol/L (3.5-5.1); Sodium 140 mmol/L (137-145)
--- NOTE | 2023-03-23 10:53 | P.PN ---
Subjective Progress Note Date: 03/23/23 Hospital course: Patient is a very pleasant 77-year-old male with a past medical history of prostate cancer, hypothyroidism, hypertension, type II eej-oqvpelw-sghozbdqq diabetes mellitus, and mild dementia. He presented to the emergency department on 03/18/23 with a chief complaint of abdominal pain and urinary retention. He underwent full evaluation in the emergency department. Labs were completed and reviewed. CBC showing leukocytosis with WBC count of 13.8 and normocytic anemia with hemoglobin of 9.9. BMP showing acute renal failure with BUN of 87, creatinine of 6.06, and GFR of 8, unknown baseline creatinine however patient and family deny history of kidney disease. CT abdomen and pelvis was completed showing moderately distended urinary bladder with mild to moderate bilateral hydronephrosis without obstructing calculus with small amount of free fluid in the right retroperitoneum which can be seen with ruptured calyx Mccord catheter was placed. Patient was admitted under our services with consultation to urology and nephrology. Urinalysis completed positive for glucose negative for blood, ketones, or infection. Patient was treated with IV fluid hydration, started on Flomax 0.4 mg daily. Physical exam: Vital signs reviewed and stable. General: Nontoxic, no distress and appears stated age. Derm: Skin warm and dry, normal coloration for ethnicity. Head: Atraumatic, normocephalic and symmetric. Eyes: EOMs intact, no lid lag, and anicteric sclera Mouth: no lip lesions, mucus membranes moist Cardiovascular: regular rate and rhythm with normal S1S2, no murmur, positive posterior tibial pulses bilaterally, and cap refill < 2 seconds. Lungs: Respirations even, regular, and unlabored on room air. Lungs CTA bilaterally, no rhonchi, no rales, no wheezing, and no accessory muscle usage. Abdominal: soft, nontender to palpation, no guarding, no appreciable organomegaly. Mccord catheter in place. Ext: ROM intact. No gross muscle atrophy, no edema, no contractures Neuro: Speech clear, face symmetrical and CN II-XII grossly intact with no noted focal neuro deficits Psych: Alert and oriented to person, place, time, and situation. Appropriate and pleasant affect. Assessment and Plan of Care: Acute kidney injury secondary to obstructive uropathy with prostate cancer History of prostate cancer status post treatment, however recent blood work shows increase in PSA which is suspicious for recurrence of cancer Bilateral hydronephrosis secondary to obstructive uropathy -Urology following, appreciate recommendations -Nephrology following, appreciate recommendations. -Patient has been on Flomax 2 days. Discussed with RN and once cleared by urology will complete voiding trial today and possible discharge home tomorrow. -Continue close monitoring of I's and O's. -Morning labs reviewed. Patient continues to have full resolution of previous NICHOLAS. Creatinine upon arrival to our facility was 6.06. Currently renal function with BUN of 21, creatinine 1.23, and GFR 57.. Hypothyroidism Hypertension Type II nhg-faulnwz-yzbmpxwwx diabetes mellitus Dementia Iron deficiency anemia Hold Glucophage and place patient on glycemic protocol with NovoLog sliding scale. Continue to provide safe and supportive care and continue Aricept 5 mg nightly. Continue daily medication regimen with levothyroxine 50 g daily, lisinopril 2.5 mg daily, and ferrous sulfate 325 mg daily. CODE STATUS: Full code DVT prophylaxis: Heparin Discussed with: patient, patient's and RN Anticipated discharge date: within the next [address]: home and possibly home with homecare Patient was seen independently by Nurse Pracitioner. This document was prepared using [employer] dictation software. Please allow for errors in circuit design engineer, while rare they do occur. Helio Cat NP rendered care for this patient independently, reviewed the findings and plan as documented in the note above. I did not physically speak with or examine the patient on this date. Objective - Vital Signs Vital signs: Vital Signs Temp 98.1 F 03/23/23 06:57 Pulse 88 03/23/23 06:57 Resp 16 03/23/23 06:57 BP 154/73 03/23/23 06:57 Pulse Ox 97 03/23/23 06:57 FiO2 Intake & Output 03/22/23 03/23/23 03/23/23 18:59 06:59 18:59 Intake Total 1440 Output Total 3040 1200 1300 Balance -1600 -1200 -1300 Intake: IV 900 Sodium Chloride 0.9% 1, 900 000 ml @ 75 mls/hr IV . [id number] [facility] Rx#:[id number] Oral 540 Output: Urine 3040 1200 1300 Uretheral (Mccord) 3040 Other: Voiding Method Indwelling Catheter Indwelling Catheter # Voids 1 - Labs CBC & Chem 7: 03/21/23 07:15 03/23/23 09:03 Labs: Abnormal Lab Results - Last 24 Hours (Table) 03/22/23 03/22/23 03/22/23 Range/Units 07:01 12:01 16:44 Est GFR (CKD-EPI) 57 L (>=60) Glucose 184 H (70-110) mg/dL POC Glucose (mg/dL) 236 H 193 H (70-110) mg/dL Calcium 8.0 L (8.7-10.3) mg/dL 03/22/23 03/23/23 Range/Units 19:41 05:44 Est GFR (CKD-EPI) (>=60) Glucose (70-110) mg/dL POC Glucose (mg/dL) 216 H 176 H (70-110) mg/dL Calcium (8.7-10.3) mg/dL
[2023-03-23 11:42] LABS: Glucose,Whole Blood 260 mg/dL (70-110)
--- NOTE | 2023-03-23 12:00 | P.PN ---
Subjective Patient is seen for follow-up for acute kidney injury mostly obstructive uropathy status post Mccord catheter placement. Creatinine improved to 1.2 from 6.0 on initial admission. No significant complaints today. Objective - Vital Signs Vital signs: Vital Signs Temp 98.1 F 03/23/23 06:57 Pulse 88 03/23/23 06:57 Resp 16 03/23/23 06:57 BP 154/73 03/23/23 06:57 Pulse Ox 96 03/23/23 09:35 FiO2 Intake & Output 03/22/23 03/23/23 03/23/23 18:59 06:59 18:59 Intake Total 1440 Output Total 3040 1200 1800 Balance -1600 -1200 -1800 Intake: IV 900 Sodium Chloride 0.9% 1, 900 000 ml @ 75 mls/hr IV . [id number] [facility] Rx#:[id number] Oral 540 Output: Urine 3040 1200 1800 Uretheral (Mccord) 3040 Other: Voiding Method Indwelling Catheter Indwelling Catheter Indwelling Catheter # Voids 1 - Exam Awake, comfortable, alert oriented 3 Examination of the heart S1 and S2 Examination of the lungs bilateral rales was are heard Abdomen is soft nontender Examination lower extremity shows no evidence of edema KINESIOTHERAPIST exam grossly intact - Labs CBC & Chem 7: 03/21/23 07:15 03/23/23 09:03 Labs: Abnormal Lab Results - Last 24 Hours (Table) 03/22/23 03/22/23 03/22/23 Range/Units 12:01 16:44 19:41 BUN (9-20) mg/dL Glucose (74-99) mg/dL POC Glucose (mg/dL) 236 H 193 H 216 H (70-110) mg/dL 03/23/23 03/23/23 03/23/23 Range/Units 05:44 09:03 11:38 BUN 21 H (9-20) mg/dL Glucose 244 H (74-99) mg/dL POC Glucose (mg/dL) 176 H 260 H (70-110) mg/dL Assessment and Plan Assessment: 1. Acute kidney injury secondary to obstructive uropathy. Creatinine 6 on admission and is 1.2 today. Unknown baseline renal function. UA benign. 2. Bilateral hydronephrosis being followed by urology. Currently has a Mccord catheter. 3. Benign hypertension. 4. Anemia. Iron replete. 5. Metabolic acidosis secondary to acute kidney injury. Status post bicarb drip. Improved. 6. Diabetes mellitus. 7. Hypomagnesemia from poor intake. On mag-ox. Stable. Plan: Stable for discharge from nephrology standpoint. Follow-up as outpatient with urology May continue with BETO inhibitor's.
[2023-03-23 17:24] LABS: Glucose,Whole Blood 195 mg/dL (70-110)
[2023-03-23 20:32] LABS: Glucose,Whole Blood 167 mg/dL (70-110)
[2023-03-23] MEDS: DONEPEZIL 5 MG TAB PO SCH (21:14)
[2023-03-23] MEDS: MELATONIN 5 MG TABLET PO PRN (21:14)
[2023-03-24] MEDS: HEPARIN SODIUM,PORCINE 5,000 UNIT/ML 1 ML VIAL SQ SCH ×2 (00:50→09:06)
[2023-03-24 06:16] LABS: Glucose,Whole Blood 231 mg/dL (70-110)
[2023-03-24] MEDS: INSULIN ASPART (NovoLOG) 100 UNIT/ML VIAL SQ SCH (06:42)
[2023-03-24] MEDS: LEVOTHYROXINE 50 MCG TAB PO SCH (06:43)
[2023-03-24] MEDS: FERROUS SULFATE 325 MG TAB PO SCH (09:06)
[2023-03-24] MEDS: MAGNESIUM OXIDE 400 MG TAB PO SCH (09:06)
[2023-03-24] MEDS: SODIUM CHLORIDE 0.9% 1,000 ML IV SCH (09:06)
[2023-03-24] MEDS: TAMSULOSIN 0.4 MG CAP.ER.24H PO SCH (09:06)
[2023-03-24 09:14] VITALS: BP 168/73; PULSE 98; RESP 15; TEMP 99.6
--- NOTE | 2023-03-24 12:58 | P.PN ---
Subjective Patient is seen for follow-up for acute kidney injury mostly obstructive uropathy status post Mccord catheter placement. Creatinine improved to 1.2 from 6.0 on initial admission. No significant complaints today. Patient failed voiding trial yesterday and Mccord catheter was reinserted. Being discharged today with indwelling Mccord catheter. Objective - Vital Signs Vital signs: Vital Signs Temp 99.6 F 03/24/23 08:00 Pulse 98 03/24/23 08:00 Resp 15 03/24/23 08:00 BP 168/73 03/24/23 08:00 Pulse Ox 98 03/24/23 08:00 FiO2 Intake & Output 03/23/23 03/24/23 03/24/23 18:59 06:59 18:59 Intake Total 940 375 Output Total 2000 800 2250 Balance -1060 -425 -2250 Weight 52.163 kg Intake: Intake, IV Titration 600 375 Amount Sodium Chloride 0.9% 1, 600 375 000 ml @ 75 mls/hr IV . [id number] [facility] Rx#:[id number] Oral 340 Output: Urine 1999 800 2250 Uretheral (Mccord) 200 Other: Voiding Method Indwelling Catheter Diaper # Voids 2 # Bowel Movements 1 - Exam Awake, comfortable, alert oriented 3 Examination of the heart S1 and S2 Examination of the lungs bilateral rales was are heard Abdomen is soft nontender Examination lower extremity shows no evidence of edema SYSTEM CONFIGURATION SPECIALIST exam grossly intact - Labs CBC & Chem 7: 03/21/23 07:15 03/23/23 09:03 Labs: Abnormal Lab Results - Last 24 Hours (Table) 03/23/23 03/23/23 03/24/23 Range/Units 17:20 20:29 06:14 POC Glucose (mg/dL) 195 H 167 H 231 H (70-110) mg/dL Assessment and Plan Assessment: 1. Acute kidney injury secondary to obstructive uropathy. Creatinine 6 on admission and is 1.2 today. Unknown baseline renal function. UA benign. 2. Bilateral hydronephrosis being followed by urology. Currently has a Mccord catheter. 3. Benign hypertension. 4. Anemia. Iron replete. 5. Metabolic acidosis secondary to acute kidney injury. Status post bicarb drip. Improved. 6. Diabetes mellitus. 7. Hypomagnesemia from poor intake. On mag-ox. Stable. Plan: Stable for discharge from nephrology standpoint. Follow-up as outpatient with urology May continue with BETO inhibitor's.
--- NOTE | 2023-03-24 15:09 | P.PN ---
Subjective Progress Note Date: 03/24/23 Patient unable to void after rowe removal his PVR was 500 mL yesterday, Rowe catheter was reinserted. Denies any gross hematuria or dysuria this morning Objective - Vital Signs Vital signs: Vital Signs Temp 99.6 F 03/24/23 08:00 Pulse 98 03/24/23 08:00 Resp 15 03/24/23 08:00 BP 168/73 03/24/23 08:00 Pulse Ox 98 03/24/23 08:00 FiO2 Intake & Output 03/23/23 03/24/23 03/24/23 18:59 06:59 18:59 Intake Total 940 375 Output Total 2000 800 2250 Balance -6641 -425 -2250 Weight 52.163 kg Intake: Intake, IV Titration 600 375 Amount Sodium Chloride 0.9% 1, 600 375 000 ml @ 75 mls/hr IV . [id number] [facility] Rx#:[id number] Oral 340 Output: Urine 1999 800 2250 Uretheral (Rowe) 200 Other: Voiding Method Indwelling Catheter Diaper # Voids 2 # Bowel Movements 1 - Constitutional General appearance: Present: no acute distress - Gastrointestinal General gastrointestinal: Present: soft. Absent: tenderness - Psychiatric Psychiatric: Present: A&O x's 3 - Labs CBC & Chem 7: 03/21/23 07:15 03/23/23 09:03 Labs: Abnormal Lab Results - Last 24 Hours (Table) 03/23/23 03/23/23 03/24/23 Range/Units 17:20 20:29 06:14 POC Glucose (mg/dL) 195 H 167 H 231 H (70-110) mg/dL Assessment and Plan Assessment: 77 on history of prostate cancer. Treated with external beam radiation therapy with evidence of biochemical recurrence last PSA is 8, urology is consultative for urinary retention, catheter was removed yesterday patient was unable to void catheter was reinserted -Patient can be discharged with a Rowe catheter, can follow-up as an outpatient with Dr. Maldonado in 2 weeks -Continue Flomax -Discussed with patient and his his urinary retention could be secondary to prostate cancer recurrence, might benefit from restarting Lupron as an outpatient
--- NOTE | 2023-03-24 18:24 | P.DS ---
Providers Date of admission: 03/18/23 21:37 Expected date of discharge: 03/24/23 Attending physician: Arlene Maddox MD Consults: 03/18/23 21:36 Consult Physician Routine Consulting Provider: Charles Carranza Consult Reason/Comments: urinary retention, NICHOLAS Do you want consulting provider notified?: Yes 03/18/23 23:22 Consult Physician Routine Consulting Provider: Robert Cagle Consult Reason/Comments: NICHOLAS Do you want consulting provider notified?: Yes Primary care physician: Stated None Hospital Course: Discharge Diagnosis: Acute kidney injury secondary to obstructive uropathy with prostate cancer. Resolved after placement of Mccord catheter. Patient was then started on Flomax 0.4 mg daily, fully R was later removed and voiding challenge was performed. Patient again failing voiding challenge and Mccord catheter was replaced. Patient to be discharged home with Mccord catheter and follow up with urologist in 2 weeks to further discuss possible benefits of restarting Lupron an outpatient basis. History of prostate cancer status post treatment, however recent blood work shows increase in PSA which is suspicious for recurrence of cancer. Patient to follow up outpatient with urologist to further discuss benefits of restarting Lupron. Bilateral hydronephrosis secondary to obstructive uropathy. Hypothyroidism. Patient to continue daily medication regimen. Levothyroxine 50 g daily. Hypertension. Acute kidney injury has resolved patient to continue daily medication regimen with lisinopril 2.5 mg daily. Type II ufi-ahodqza-wdsjowjom diabetes mellitus. Patient to continue with glipizide 2.5 mg daily and metformin 1000 mg twice daily. Dementia. Recommend continuation of Aricept 5 mg nightly. Iron deficiency anemia. Continue daily medication regimen with ferrous sulfate 325 mg daily. Hospital Course: Patient is a very pleasant 77-year-old male with a past medical history of prostate cancer, hypothyroidism, hypertension, type II wdi-wdpknhd-iipmpbfrz diabetes mellitus, and mild dementia. He presented to the emergency department on 03/18/23 with a chief complaint of abdominal pain and urinary retention. He underwent full evaluation in the emergency department. Labs were completed and reviewed. CBC showing leukocytosis with WBC count of 13.8 and normocytic anemia with hemoglobin of 9.9. BMP showing acute renal failure with BUN of 87, creatinine of 6.06, and GFR of 8, unknown baseline creatinine however patient and family deny history of kidney disease. CT abdomen and pelvis was completed showing moderately distended urinary bladder with mild to moderate bilateral hydronephrosis without obstructing calculus with small amount of free fluid in the right retroperitoneum which can be seen with ruptured calyx Mccord catheter was placed. Patient was admitted under our services with consultation to urology and nephrology. Urinalysis completed positive for glucose negative for blood, ketones, or infection. Patient was treated with IV fluid hydration, started on Flomax 0.4 mg daily. Acute kidney injury secondary to obstructive uropathy with prostate cancer. Resolved after placement of Mccord catheter. Patient was then started on Flomax 0.4 mg daily, fully R was later removed and voiding challenge was performed. Patient again failing voiding challenge and Mccord catheter was replaced. Patient to be discharged home with Mccord catheter and follow up with urologist in 1 week. Renal function on discharge showing BUN of 21, creatinine 1.23, and GFR 57 which is back to baseline and significantly improved from creatinine upon presentation which was initially 6.06. Physical exam: Vital signs reviewed and stable. General: Nontoxic, no distress and appears stated age. Derm: Skin warm and dry, normal coloration for ethnicity. Head: Atraumatic, normocephalic and symmetric. Eyes: EOMs intact, no lid lag, and anicteric sclera Mouth: no lip lesions, mucus membranes moist Cardiovascular: regular rate and rhythm with normal S1S2, no murmur, positive posterior tibial pulses bilaterally, and cap refill < 2 seconds. Lungs: Respirations even, regular, and unlabored on room air. Lungs CTA bilaterally, no rhonchi, no rales, no wheezing, and no accessory muscle usage. Abdominal: soft, nontender to palpation, no guarding, no appreciable organomegaly. Mccord catheter in place. Ext: ROM intact. No gross muscle atrophy, no edema, no contractures Neuro: Speech clear, face symmetrical and CN II-XII grossly intact with no noted focal neuro deficits Psych: Alert and oriented to person, place, time, and situation. Appropriate and pleasant affect. A total of 34 minutes of time were spent preparing this complex discharge summary. Pt was discharged on 03/24/23 at 9:47 AM Patient was seen independently by Nurse Practitioner. This document was prepared using [employer] dictation software. Please allow for errors in fibreglass gun hand while rare they do occur. Helio Emory, [employer]TAIN rendered care for this patient independently, reviewed the findings and plan as documented in the note above. I did not physically speak with or examine the patient on this date. Patient Condition at Discharge: Stable Plan - Discharge Summary Discharge Rx Participant: No New Discharge Prescriptions: New Tamsulosin [Flomax] 0.4 mg PO PC-BRKFST 30 Days #30 cap dronabinoL [Marinol] 5 mg PO AC-BID 30 Days #60 cap Continue Donepezil [Aricept] 5 mg PO HS metFORMIN HCL 1,000 mg PO BID-W/MEALS lisinopriL [Zestril] 2.5 mg PO DAILY Levothyroxine Sodium [Synthroid] 50 mcg PO DAILY glipiZIDE 2.5 mg PO DAILY Ferrous Sulfate [Iron (65 MG Elemental)] 325 mg PO DAILY Discharge Medication List Donepezil [Aricept] 5 mg PO HS 03/18/23 [History] Ferrous Sulfate [Iron (65 MG Elemental)] 325 mg PO DAILY 03/18/23 [History] Levothyroxine Sodium [Synthroid] 50 mcg PO DAILY 03/18/23 [History] glipiZIDE 2.5 mg PO DAILY 03/18/23 [History] lisinopriL [Zestril] 2.5 mg PO DAILY 03/18/23 [History] metFORMIN HCL 1,000 mg PO BID-W/MEALS 03/18/23 [History] Tamsulosin [Flomax] 0.4 mg PO PC-BRKFST 30 Days #30 cap 03/24/23 [Rx] dronabinoL [Marinol] 5 mg PO AC-BID 30 Days #60 cap 03/24/23 [Rx] Follow up Appointment(s)/Referral(s): Jim Cotton [NON-STAFF] - As Needed Charles Carranza MD [STAFF PHYSICIAN] - 04/03/23 9:00 am Patient Instructions/Handouts: Urinary Retention in Men (GEN), Mccord Catheter Placement and Care (DC) Activity/Diet/Wound Care/Special Instructions: PCP: Amanda Phillip [employer]TAIN: [phone] - follow up in 1-2 days. Discharge Disposition: HOME WITH HOME HEALTH SERVICES
== END 2023-03-24 12:41 | disposition home health service (06) | DRG 683 ==
LOC: EC 16:43 → 4SSUR 21:37
PROVIDERS: ADMIT Internal Medicine; ATTEND Internal Medicine
DX: N17.9 Acute kidney failure, unspecified (principal); E44.0 Moderate protein-calorie malnutrition; E87.20 Acidosis, unspecified; Z68.1 Body mass index [BMI] 19.9 or less, adult; R62.7 Adult failure to thrive; N13.30 Unspecified hydronephrosis; N18.9 Chronic kidney disease, unspecified; N39.490 Overflow incontinence; N39.498 Other specified urinary incontinence; G89.29 Other chronic pain; G30.9 Alzheimer's disease, unspecified; F02.A0 Dementia in other diseases classified elsewhere, mild, without behavioral disturbance, psychotic disturbance, mood disturbance, and anxiety; E83.42 Hypomagnesemia; E11.22 Type 2 diabetes mellitus with diabetic chronic kidney disease; E03.9 Hypothyroidism, unspecified; D50.9 Iron deficiency anemia, unspecified; Z79.4 Long term (current) use of insulin; Z79.84 Long term (current) use of oral hypoglycemic drugs; Z79.890 Hormone replacement therapy; Z79.899 Other long term (current) drug therapy; Z85.3 Personal history of malignant neoplasm of breast; Z85.46 Personal history of malignant neoplasm of prostate; Z92.3 Personal history of irradiation
CPT/HCPCS: 36415; 51702; 51798; 71046; 74176; 80048; 80053; 81003; 82728; 83036; 83540; 83550; 83605; 83735; 85025; 85027; 85610; 85730; 93005; 94760; 96361; 96374; 99285

== ENCOUNTER 2024-05-13 11:44 | Inpatient (IN) | payer MEDICARE ==
--- NOTE | 2024-05-13 12:16 | ED ---
Weakness HPI - General Chief complaint: Neuro Symptoms/Deficit Stated complaint: L Leg Pain Time Seen by Provider: 05/13/24 11:55 Source: family, RN notes reviewed, old records reviewed Mode of arrival: wheelchair - History of Present Illness Initial comments: This is a 78-year-old male with progressive weakness weakness for a few days now possible urinary tract infection indwelling Rowe catheter decreased activity level and patient has no significant complaints here in the emergency department, does not actively participate in history of present illness his provides most history MD Complaint: generalized weakness, lack of energy, difficulty walking -: days(s) Location: generalized Severity: moderate Severity scale (1-10): 6 Consistency: constant Improves with: none Worsens with: none Context: recent illness, history of similar Associated Symptoms: denies other symptoms - Related Data Home Medications Medication Instructions Recorded Confirmed Donepezil [Aricept] 5 mg PO HS 03/18/23 03/18/23 Ferrous Sulfate [Iron (65 MG 325 mg PO DAILY 03/18/23 03/18/23 Elemental)] Levothyroxine Sodium [Synthroid] 50 mcg PO DAILY 03/18/23 03/18/23 glipiZIDE 2.5 mg PO DAILY 03/18/23 03/18/23 lisinopriL [Zestril] 2.5 mg PO DAILY 03/18/23 03/18/23 metFORMIN HCL 1,000 mg PO BID-W/MEALS 03/18/23 03/18/23 Previous Rx's Medication Instructions Recorded Tamsulosin [Flomax] 0.4 mg PO PC-BRKFST 30 Days #30 cap 03/24/23 droNABinol [Marinol] 5 mg PO AC-BID 30 Days #60 cap 03/24/23 Allergies Allergy/AdvReac Type Severity Reaction Status Date / Time No Known Allergies Allergy Verified 05/13/24 14:35 Review of Systems ROS Statement: Those systems with pertinent positive or pertinent negative responses have been documented in the HPI. ROS Other: All systems not noted in ROS Statement are negative. Past Medical History Past Medical History: Cancer, Dementia, Diabetes Mellitus, Prostate Disorder Additional Past Medical History / Comment(s): prostate cancer, chronic rowe History of Any Multi-Drug Resistant Organisms: None Reported Past Surgical History: No Surgical Hx Reported Past Anesthesia/Blood Transfusion Reactions: No Reported Reaction Smoking Status: Vaper Past Alcohol Use History: None Reported Past Drug Use History: None Reported General Exam General appearance: alert, in no apparent distress Head exam: Present: atraumatic, normocephalic, normal inspection Eye exam: Present: normal appearance, PERRL, EOMI. Absent: scleral icterus, conjunctival injection, periorbital swelling ENT exam: Present: normal exam, mucous membranes moist Neck exam: Present: normal inspection. Absent: tenderness, meningismus, lymphadenopathy Respiratory exam: Present: normal lung sounds bilaterally. Absent: respiratory distress, wheezes, rales, rhonchi, stridor Cardiovascular Exam: Present: regular rate, normal rhythm, normal heart sounds. Absent: systolic murmur, diastolic murmur, rubs, gallop, clicks GI/Abdominal exam: Present: soft, normal bowel sounds. Absent: distended, tenderness, guarding, rebound, rigid Extremities exam: Present: normal inspection, full ROM, normal capillary refill. Absent: tenderness, pedal edema, joint swelling, calf tenderness Back exam: Present: normal inspection Neurological exam: Present: alert, oriented X3, CN II-XII intact Psychiatric exam: Present: normal affect, normal mood Skin exam: Present: warm, dry, intact, normal color. Absent: rash Course Vital Signs 05/13/24 05/13/24 05/13/24 11:47 11:53 13:53 Temperature 98.4 F Pulse Rate 122 H 106 H 109 H Respiratory 18 20 20 Rate Blood Pressure 116/64 135/68 118/68 O2 Sat by Pulse 97 98 98 Oximetry 05/13/24 14:00 Temperature Pulse Rate 93 Respiratory 20 Rate Blood Pressure 129/63 O2 Sat by Pulse 99 Oximetry - Reevaluation(s) Reevaluation #1: 05/13/24 14:42 Medical records reviewed Reevaluation #2: 05/13/24 14:42 Patient symptoms unchanged Reevaluation #3: 05/13/24 14:42 Patient informed of results and questions answered Reevaluation #4: Was pt. sent in by a medical professional or institution (, PA, VAC PRESS OPERATOR, urgent care, hospital, or group home...) When possible be specific @ -no Did you speak to anyone other than the patient for history (EMS, parent, family, police, friend...)? What history was obtained from this source @ -no Did you review nursing and triage notes (agree or disagree)? Why? @ -agree Are old charts reviewed (outside hosp., previous admission, EMS record, old EKG, old radiological studies, urgent care reports/EKG's, group home records)? Report findings @ -yes Differential Diagnosis (chest pain, altered mental status, abdominal pain women, abdominal pain men, vaginal bleeding, weakness, fever, dyspnea, syncope, h eadache, dizziness, GI bleed, back pain, seizure, CVA, palpatations, mental health, musculoskeletal)? @ -prior EKG interpreted by me (3pts min.). @ -yes X-rays interpreted by me (1pt min.). @ -yes negative for acute disease CT interpreted by me (1pt min.). @ -no U/S interpreted by me (1pt. min.). @ -no What testing was considered but not performed or refused? (CT, X-rays, U/S, labs)? Why? @ -none What meds were considered but not given or refused? Why? @ -none Did you discuss the management of the patient with other professionals (professionals i.e. , PA, VAC PRESS OPERATOR, lab, RT, psych nurse, web content & social media manager, athlete manager, teacher, complaint investigations officer, bottle caser)? Give summary @ -no Was smoking cessation discussed for >3mins.? @ -no Was critical care preformed (if so, how long)? @ -no Were there social determinants of health that impacted care today? How? (Homelessness, low income, unemployed, alcoholism, drug addiction, transportation, low edu. Level, literacy, decrease access to med. care, skilled nursing, rehab)? @ -none Was there de-escalation of care discussed even if they declined (Discuss DNR or withdrawal of care, Hospice)? DNR status @ -no What co-morbidities impacted this encounter? (DM, HTN, Smoking, COPD, CAD, Cancer, CVA, ARF, Chemo, Hep., AIDS, mental health diagnosis, sleep apnea, morbid obesity)? @ -none Was patient admitted / discharged? Hospital course, mention meds given and route, prescriptions, significant lab abnormalities, going to OR and other pertinent info. @ - Undiagnosed new problem with uncertain prognosis? @ -no Drug Therapy requiring intensive monitoring for toxicity (Heparin, Nitro, Insulin, Cardizem)? @ -no Were any procedures done? @ -no Diagnosis/symptom? @ - Acute, or Chronic, or Acute on Chronic? @ -Acute Uncomplicated (without systemic symptoms) or Complicated (systemic symptoms)? @ -Complicated Side effects of treatment? @ -no Exacerbation, Progression, or Severe Exacerbation? @ -exacerbation Poses a threat to life or bodily function? How? (Chest pain, USA, IA, pneumonia, PE, COPD, DKA, ARF, appy, cholecystitis, CVA, Diverticulitis, Homicidal, Suicidal, threat to staff... and all critical care pts) @ -yes Reevaluation #5: Differential Weakness: Hypoglycemia, shock, sepsis, hyponatremia, anemia, infection, IA, ETOH, adverse medicine reaction, overdose, stroke, this is not meant to be an all-inclusive list. - Consultations Consultation #1: Spoke with [facility] who agrees to admit this patient EKG Findings - EKG Comments: EKG Findings:: EKG is a flutter 114 QRS 106 QTc 392 - EKG Results: EKG shows: tachycardia, atrial fibrillation Medical Decision Making - Medical Decision Making 78 male to the ER for evaluation patient has A-fib with RVR new onset elevated troponin weakness debility decreased activity level and urinary tract infection will admit for treatment - Lab Data Result diagrams: 05/13/24 12:16 05/13/24 12:16 Lab Results 05/13/24 05/13/24 05/13/24 Range/Units 12:16 12:16 12:16 WBC 6.3 (3.8-10.6) k/uL RBC 3.41 L (4.30-5.90) m/uL Hgb 10.4 L (13.0-17.5) gm/dL Hct 31.7 L (39.0-53.0) % MCV 93.0 (80.0-100.0) fL MCH 30.5 (25.0-35.0) pg MCHC 32.8 (31.0-37.0) g/dL RDW 13.4 (11.5-15.5) % Plt Count 307 (150-450) k/uL MPV 7.2 Neutrophils % 81 % Lymphocytes % 12 % Monocytes % 4 % Eosinophils % 1 % Basophils % 0 % Neutrophils # 5.1 (1.3-7.7) k/uL Lymphocytes # 0.8 L (1.0-4.8) k/uL Monocytes # 0.3 (0-1.0) k/uL Eosinophils # 0.1 (0-0.7) k/uL Basophils # 0.0 (0-0.2) k/uL PT 10.2 (10.0-12.5) sec INR 0.9 (<1.2) APTT 19.3 L (22.0-30.0) sec Sodium 134 L (137-145) mmol/L Potassium 4.7 (3.5-5.1) mmol/L Chloride 101 (98-107) mmol/L Carbon Dioxide 25 (22-30) mmol/L Anion Gap 8 mmol/L BUN 18 (9-20) mg/dL Creatinine 1.15 (0.66-1.25) mg/dL Est GFR (CKD-EPI)AfAm 71 (>60 ml/min/1.73 sqM) Est GFR (CKD-EPI)NonAf 61 (>60 ml/min/1.73 sqM) Glucose 142 H (74-99) mg/dL Plasma Lactic Acid Dax (0.7-2.0) mmol/L Calcium 9.2 (8.4-10.2) mg/dL Phosphorus 5.2 H (2.5-4.5) mg/dL Magnesium 1.5 L (1.6-2.3) mg/dL Total Bilirubin 0.3 (0.2-1.3) mg/dL AST 26 (17-59) U/L ALT 26 (4-49) U/L Alkaline Phosphatase 99 (38-126) U/L Troponin I (0.000-0.034) ng/mL NT-Pro-B Natriuret Pep 152 pg/mL Total Protein 7.1 (6.3-8.2) g/dL Albumin 4.2 (3.5-5.0) g/dL Urine Color Urine Appearance (Clear) Urine pH (5.0-8.0) Ur Specific Linn (1.001-1.035) Urine Protein (Negative) Urine Glucose (UA) (Negative) Urine Ketones (Negative) Urine Blood (Negative) Urine Nitrite (Negative) Urine Bilirubin (Negative) Urine Urobilinogen (<2.0) mg/dL Ur Leukocyte Esterase (Negative) Urine RBC (0-5) /hpf Urine WBC (0-5) /hpf Urine WBC Clumps (None) /hpf Ur Squamous Epith Cells (0-4) /hpf Uric Acid Crystals (None) /hpf Urine Bacteria (None) /hpf Urine Mucus (None) /hpf 05/13/24 05/13/24 05/13/24 Range/Units 12:16 12:16 13:29 WBC (3.8-10.6) k/uL RBC (4.30-5.90) m/uL Hgb (13.0-17.5) gm/dL Hct (39.0-53.0) % MCV (80.0-100.0) fL MCH (25.0-35.0) pg MCHC (31.0-37.0) g/dL RDW (11.5-15.5) % Plt Count (150-450) k/uL MPV Neutrophils % % Lymphocytes % % Monocytes % % Eosinophils % % Basophils % % Neutrophils # (1.3-7.7) k/uL Lymphocytes # (1.0-4.8) k/uL Monocytes # (0-1.0) k/uL Eosinophils # (0-0.7) k/uL Basophils # (0-0.2) k/uL PT (10.0-12.5) sec INR (<1.2) APTT (22.0-30.0) sec Sodium (137-145) mmol/L Potassium (3.5-5.1) mmol/L Chloride (98-107) mmol/L Carbon Dioxide (22-30) mmol/L Anion Gap mmol/L BUN (9-20) mg/dL Creatinine (0.66-1.25) mg/dL Est GFR (CKD-EPI)AfAm (>60 ml/min/1.73 sqM) Est GFR (CKD-EPI)NonAf (>60 ml/min/1.73 sqM) Glucose (74-99) mg/dL Plasma Lactic Acid Dax 2.0 (0.7-2.0) mmol/L Calcium (8.4-10.2) mg/dL Phosphorus (2.5-4.5) mg/dL Magnesium (1.6-2.3) mg/dL Total Bilirubin (0.2-1.3) mg/dL AST (17-59) U/L ALT (4-49) U/L Alkaline Phosphatase (38-126) U/L Troponin I 0.113 H* (0.000-0.034) ng/mL NT-Pro-B Natriuret Pep pg/mL Total Protein (6.3-8.2) g/dL Albumin (3.5-5.0) g/dL Urine Color Red Urine Appearance Turbid (Clear) Urine pH 7.5 (5.0-8.0) Ur Specific Linn 1.016 (1.001-1.035) Urine Protein 1+ H (Negative) Urine Glucose (UA) Negative (Negative) Urine Ketones 1+ H (Negative) Urine Blood Negative (Negative) Urine Nitrite Positive (Negative) Urine Bilirubin Negative (Negative) Urine Urobilinogen <2.0 (<2.0) mg/dL Ur Leukocyte Esterase Large H (Negative) Urine RBC 14 H (0-5) /hpf Urine WBC >182 H (0-5) /hpf Urine WBC Clumps Occasional H (None) /hpf Ur Squamous Epith Cells 3 (0-4) /hpf Uric Acid Crystals Many H (None) /hpf Urine Bacteria Rare H (None) /hpf Urine Mucus Rare H (None) /hpf - EKG Data -: EKG Interpreted by Me - Radiology Data Radiology results: report reviewed (CT abdomen pelvis is negative for acute disease), image reviewed Disposition Referrals: Arben Neely MD [Primary Care Provider] - 1-2 days
[2024-05-13 12:53] LABS: Basophils % (A) 0 %; Eosinophils # (A) 0.1 k/uL (0-0.7); Eosinophils % (A) 1 %; HCT 31.7 % (39.0-53.0); HGB 10.4 gm/dL (13.0-17.5); Lymphocytes # (A) 0.8 k/uL (1.0-4.8); Lymphocytes % (A) 12 %; MCH 30.5 pg (25.0-35.0); MCHC 32.8 g/dL (31.0-37.0); Mean Platelet Volume 7.2; Monocytes # (A) 0.3 k/uL (0-1.0); Monocytes % (A) 4 %; Neutrophils # (A) 5.1 k/uL (1.3-7.7); Neutrophils % (A) 81 %; Platelet Count 307 k/uL (150-450); RBC 3.41 m/uL (4.30-5.90); RDW 13.4 % (11.5-15.5); WBC 6.3 k/uL (3.8-10.6)
[2024-05-13] MEDS: SODIUM CHLORIDE 0.9% 500 ML 500 ML IV STA (13:02)
[2024-05-13] MEDS: SODIUM CHLORIDE 0.9% 1,000 ML IV STA ×2 (13:02)
[2024-05-13 13:06] LABS: ALT 26 U/L (4-49); AST 26 U/L (17-59); African American GFR (CKD) 71 (>60 ml/min/1.73 sqM); Albumin 4.2 g/dL (3.5-5.0); Alkaline Phosphatase 99 U/L (38-126); Anion Gap 8 mmol/L; Blood Urea Nitrogen 18 mg/dL (9-20); Calcium 9.2 mg/dL (8.4-10.2); Carbon Dioxide 25 mmol/L (22-30); Chloride 101 mmol/L (98-107); Glucose 142 mg/dL (74-99); Magnesium 1.5 mg/dL (1.6-2.3); Non-African American GFR(CKD) 61 (>60 ml/min/1.73 sqM); Phosphorus 5.2 mg/dL (2.5-4.5); Potassium 4.7 mmol/L (3.5-5.1); Sodium 134 mmol/L (137-145); Total Bilirubin 0.3 mg/dL (0.2-1.3); Total Protein 7.1 g/dL (6.3-8.2)
[2024-05-13] MEDS: DILTIAZEM 125 MG in SODIUM CHLORIDE 0.9% 100 ML IV SCH (13:07)
[2024-05-13] MEDS: DILTIAZEM DRIP BOLUS FROM BAG 1 MG SOLN IV ONE (13:07)
[2024-05-13 13:14] LABS: NT-Pro-B-Type Natriuretic Pept 152 pg/mL
[2024-05-13 13:34] LABS: INR 0.9 (<1.2); Prothrombin Time 10.2 sec (10.0-12.5)
[2024-05-13 13:37] LABS: Partial Thromboplastin Time 19.3 sec (22.0-30.0)
[2024-05-13 13:48] LABS: Appearance,Urine Turbid (Clear); Bacteria,Urine Rare /hpf; Bilirubin,Urine Negative (Negative); Blood,Urine Negative (Negative); Color,Urine Red; Glucose,Urine (UA) Negative (Negative); Ketones,Urine 1+ (Negative); Leukocyte Esterase,Urine Large (Negative); Mucus,Urine Rare /hpf; Nitrite,Urine Positive (Negative); PH, Urine 7.5 (5.0-8.0); Protein,Urine 1+ (Negative); RBC,Urine 14 /hpf (0-5); Specific Gravity,Urine 1.016 (1.001-1.035); Squamous Epithelial Cell,Urine 3 /hpf (0-4); Uric Acid Crystals,Urine Many /hpf; Urobilinogen,Urine <2.0 mg/dL (<2.0); WBC,Urine >182 /hpf (0-5)
[2024-05-13] MEDS ORDERED: MORPHINE SULFATE 4 MG/ML SYRINGE IV PRN (14:39)
[2024-05-13] MEDS ORDERED: NALOXONE 0.4 MG/ML 1 ML VIAL IV PRN (14:39)
[2024-05-13] MEDS ORDERED: ONDANSETRON 4 MG/2 ML VIAL IVP PRN (14:39)
--- NOTE | 2024-05-13 15:19 | CT ---
EXAMINATION TYPE: CT abdomen pelvis wo con CT DLP: 411 mGycm, Automated exposure control for dose reduction was used. DATE OF EXAM: 05/13/2024 3:10 PM COMPARISON: CT abdomen pelvis 03/18/2023 CLINICAL INDICATION:Male, 78 years old with history of pain; ABDOMINAL PAIN ABNORMAL LABS TECHNIQUE: Standard CT of the abdomen and pelvis without IV or oral contrast. Lack of IV or oral co ntrast limits evaluation of solid and hollow organ viscera. Coronal and sagittal reformats were perfo rmed. FINDINGS: LOWER CHEST: The visualized lung bases are clear. Coronary artery calcifications. ABDOMEN LIVER: Unremarkable noncontrast appearance GALLBLADDER AND BILE DUCTS: Unremarkable noncontrast appearance PANCREAS: Unremarkable noncontrast appearance SPLEEN: Unremarkable noncontrast appearance ADRENAL GLANDS: Similar thickening of the left adrenal gland. The right adrenal gland demonstrates un remarkable noncontrast appearance. KIDNEYS AND URETERS: No evidence of hydronephrosis or renal calculus. No ureteral calculus. Increased bilateral perinephric stranding stranding from prior exam. PELVIS BLADDER: Nondistended with Mccord catheter in place. REPRODUCTIVE: Brachytherapy seeds within the prostate gland. Calcification of the bilateral vas defer ens suggesting diabetes. ABDOMEN & PELVIS STOMACH AND BOWEL: Couple of duodenal diverticulum identified.The appendix is within normal limits. N o focal bowel wall thickening or surrounding inflammatory changes. No evidence of bowel obstruction. PERITONEUM: No evidence of pneumoperitoneum or free fluid. Similar presacral fat stranding. VASCULATURE: Severe atherosclerotic calcifications are present throughout the abdominal aorta and its branches. No evidence of aortic aneurysm. MUSCULOSKELETAL: No acute osseous abnormalities LYMPH NODES: No gross evidence for lymphadenopathy. SOFT TISSUE/ABDOMINAL WALL: Small fat filled bilateral gurney. IMPRESSION: No CT evidence for an acute abdominal/pelvic process within limitations of a noncontrast exam. [facility], , 05/13/2024 3:16 PM
[2024-05-13] MEDS: SODIUM CHLORIDE 0.9% 1,000 ML IV SCH (15:48)
[2024-05-13] MEDS: MAGNESIUM OXIDE 400 MG TAB PO STA ×2 (15:48)
[2024-05-13] MEDS: MAGNESIUM SULFATE-D5W PMX 1 GM in DEXTROSE/WATER 1 100ML.BAG IVPB ONE (15:48)
--- NOTE | 2024-05-13 17:29 | XR ---
EXAMINATION TYPE: XR chest 1V DATE OF EXAM: 05/13/2024 5:02 PM COMPARISON: Chest radiographs from 03/18/2023 CLINICAL INDICATION: Male, 78 years old with history of weak; [facility] TECHNIQUE: XR chest 1V Frontal view of the chest. FINDINGS: Lungs/Pleura: There is no evidence of pleural effusion, focal consolidation, or pneumothorax. Pulmonary vascularity: Unremarkable. Heart/mediastinum: Cardiomediastinal silhouette is unremarkable. Musculoskeletal: No acute osseous pathology. IMPRESSION: No acute cardiopulmonary disease/process. [facility], , 05/13/2024 5:27 PM
[2024-05-14 06:51] LABS: Basophils % (A) 0 %; Eosinophils % (A) 1 %; HGB 9.4 gm/dL (13.0-17.5); Lymphocytes % (A) 21 %; MCH 31.5 pg (25.0-35.0); MCHC 33.6 g/dL (31.0-37.0); MCV 93.6 fL (80.0-100.0); Mean Platelet Volume 7.1; Monocytes # (A) 0.3 k/uL (0-1.0); Monocytes % (A) 7 %; Neutrophils # (A) 3.3 k/uL (1.3-7.7); Neutrophils % (A) 69 %; Platelet Count 281 k/uL (150-450); RDW 13.4 % (11.5-15.5); WBC 4.8 k/uL (3.8-10.6)
[2024-05-14 06:59] LABS: ALT 22 U/L (4-49); AST 20 U/L (17-59); African American GFR (CKD) 81 (>60 ml/min/1.73 sqM); Albumin 3.7 g/dL (3.5-5.0); Alkaline Phosphatase 99 U/L (38-126); Anion Gap 10 mmol/L; Blood Urea Nitrogen 12 mg/dL (9-20); Calcium 9.1 mg/dL (8.4-10.2); Carbon Dioxide 22 mmol/L (22-30); Chloride 104 mmol/L (98-107); Glucose 128 mg/dL (74-99); Magnesium 1.9 mg/dL (1.6-2.3); Non-African American GFR(CKD) 70 (>60 ml/min/1.73 sqM); Phosphorus 3.5 mg/dL (2.5-4.5); Potassium 4.3 mmol/L (3.5-5.1); Sodium 136 mmol/L (137-145); Total Bilirubin 0.3 mg/dL (0.2-1.3); Total Protein 6.4 g/dL (6.3-8.2)
[2024-05-14] MEDS: METOPROLOL TARTRATE 25 MG TAB PO SCH (08:58)
[2024-05-14] MEDS ORDERED: DEXTROSE 50% SYRINGE 50 ML IVP PRN ×2 (09:00)
--- NOTE | 2024-05-14 10:12 | P.CRDCN ---
History of Present Illness History of present illness: HISTORY OF PRESENT ILLNESS: This is a 78-year-old male with a past medical history significant for hypertension. Patient does not follow with a flow floor attendant. We have been asked to see the patient in consultation for elevated troponins. Patient examined at the bedside in the emergency room. Patient was brought to the hospital for increasing weakness. Patient was found to have a urinary tract infection. He does have an indwelling urinary catheter. The patient is confused at the time of examination. There is no family present to provide additional HPI. The patient denies having any chest pain or pressure. He denies any shortness of breath. He denies any dizziness or lightheadedness. Denies any palpitations. DIAGNOSTICS: - EKG reveals sinus tachycardia. Repeat EKG reveals sinus mechanism. - Chest xray negative for acute process - Laboratory data: WBC 4.8. Hemoglobin 9.4. Platelet count 281. Sodium 136. Potassium 4.3. BUN 12. Creatinine 1.03. Troponin 0.113. 0.126. 0.123. proBNP 152. - Current home cardiac medications include lisinopril 40 mg daily - No previous echocardiogram, stress test, or cardiac catheterization available in EMR for review REVIEW OF SYSTEMS: At the time of my exam: CONSTITUTIONAL: Denies fever or chills. HEENT: Denies blurred vision, vision changes, or eye pain. Denies hemoptysis CARDIOVASCULAR: Denies chest pain. Denies orthopnea. Denies PND. Denies palpitations RESPIRATORY: Denies shortness of breath. GASTROINTESTINAL: Denies abdominal pain. Denies nausea or vomiting. HEMATOLOGIC: Denies bleeding disorders. GENITOURINARY: Denies any blood in urine. SKIN: Denies pruitis. Denies rash. PHYSICAL EXAM: VITAL SIGNS: Reviewed. GENERAL: Well-developed in no acute distress. HEENT: Head is normocephalic. Pupils are equal, round. Sclerae anicteric. Mucous membranes of the mouth are moist. Neck supple. No JVD or thyromegaly LUNGS: Respirations even and unlabored. Lungs essentially clear to auscultation bilaterally. HEART: Regular rate and rhythm. S1 and S2 heard. Systolic murmur noted. ABDOMEN: Soft. Nondistended. Nontender. EXTREMITIES: Normal range of motion. No clubbing or cyanosis. Peripheral pulses intact. No lower extremity edema NEUROLOGIC: Awake and alert. Oriented x 1 ASSESSMENT: Generalized weakness Urinary tract infection Altered mental status, baseline unknown Chronic indwelling urinary catheter Sinus tachycardia Atrial flutter/fibrillation, ruled out, EKG reveals sinus tachycardia Elevated troponins, flat, no evidence of ACS, likely type II MD secondary to infectious process History of hypertension PLAN: EKG and bedside telemetry reveals sinus mechanism with no evidence of atrial f ibrillation/atrial flutter An acute coronary but has been ruled out Obtain 2D echo to assess cardiac structure and function May hold home dose of lisinopril as pressures are slightly on the lower side today. Reevaluate tomorrow. Continue telemetry monitoring Further recommendations pending patient course Nurse practitioner note has been reviewed by physician. Signing provider agrees with the documented findings, assessment, and plan of care documented by TUBE ROOM SUPERVISOR as a scribe. Past Medical History Past Medical History: Cancer, Dementia, Diabetes Mellitus, Prostate Disorder Additional Past Medical History / Comment(s): prostate cancer, chronic rowe History of Any Multi-Drug Resistant Organisms: None Reported Past Surgical History: No Surgical Hx Reported Past Anesthesia/Blood Transfusion Reactions: No Reported Reaction Smoking Status: Vaper Past Alcohol Use History: None Reported Past Drug Use History: None Reported Medications and Allergies Home Medications Medication Instructions Recorded Confirmed Type Donepezil [Aricept] 5 mg PO HS 03/18/23 05/13/24 History Ferrous Sulfate [Iron (65 MG 325 mg PO HS 03/18/23 05/13/24 History Elemental)] Levothyroxine Sodium [Synthroid] 50 mcg PO DAILY 03/18/23 05/13/24 History glipiZIDE 2.5 mg PO HS 03/18/23 05/13/24 History metFORMIN HCL 1,000 mg PO BID 03/18/23 05/13/24 History Nitrofurantoin Monohyd/M-Cryst 100 mg PO BID 05/13/24 05/13/24 History [Macrobid] Tamsulosin [Flomax] 0.4 mg PO DAILY 05/13/24 05/13/24 History glipiZIDE [Glucotrol] 5 mg PO DAILY 05/13/24 05/13/24 History lisinopriL 40 mg PO DAILY 05/13/24 05/13/24 History Allergies Allergy/AdvReac Type Severity Reaction Status Date / Time No Known Allergies Allergy Verified 05/13/24 14:35 Physical Exam Vitals: Vital Signs Temp Pulse Resp BP Pulse Ox 05/14/24 07:20 98.3 F 92 20 127/67 98 05/14/24 06:49 75 18 125/65 97 05/14/24 04:10 70 18 96/44 97 05/14/24 01:55 76 18 127/67 97 05/13/24 22:00 66 18 140/66 97 05/13/24 20:10 88 18 140/66 97 05/13/24 18:10 89 18 97/60 96 05/13/24 17:00 84 18 100/60 96 05/13/24 15:48 79 18 140/79 96 05/13/24 14:00 93 20 129/63 99 05/13/24 13:53 109 H 20 118/68 98 05/13/24 11:53 106 H 20 135/68 98 05/13/24 11:47 98.4 F 122 H 18 116/64 97 Results 05/14/24 05:52 05/14/24 05:52 Cardiac Enzymes 05/13/24 05/13/24 05/13/24 Range/Units 12:16 12:16 15:01 AST 26 (17-59) U/L Troponin I 0.113 H* 0.126 H* (0.000-0.034) ng/mL 05/13/24 05/14/24 Range/Units 17:36 05:52 AST 20 (17-59) U/L Troponin I 0.123 H* (0.000-0.034) ng/mL Coagulation 05/13/24 Range/Units 12:16 PT 10.2 (10.0-12.5) sec APTT 19.3 L (22.0-30.0) sec CBC 05/13/24 05/14/24 Range/Units 12:16 05:52 WBC 6.3 4.8 (3.8-10.6) k/uL RBC 3.41 L 3.00 L (4.30-5.90) m/uL Hgb 10.4 L 9.4 L (13.0-17.5) gm/dL Hct 31.7 L 28.0 L (39.0-53.0) % Plt Count 307 281 (150-450) k/uL Comprehensive Metabolic Panel 05/13/24 05/14/24 Range/Units 12:16 05:52 Sodium 134 L 136 L (137-145) mmol/L Potassium 4.7 4.3 (3.5-5.1) mmol/L Chloride 101 104 (98-107) mmol/L Carbon Dioxide 25 22 (22-30) mmol/L BUN 18 12 (9-20) mg/dL Creatinine 1.15 1.03 (0.66-1.25) mg/dL Glucose 142 H 128 H (74-99) mg/dL Calcium 9.2 9.1 (8.4-10.2) mg/dL AST 26 20 (17-59) U/L ALT 26 22 (4-49) U/L Alkaline Phosphatase 99 99 (38-126) U/L Total Protein 7.1 6.4 (6.3-8.2) g/dL Albumin 4.2 3.7 (3.5-5.0) g/dL Current Medications Generic Name Dose Route Start Last Admin Trade Name Freq PRN Reason Stop Dose Admin Sodium Chloride 1,000 mls @ 75 mls/hr 05/13/24 14:45 05/14/24 06:47 Saline 0.9% IV 75 mls/hr .[id number] MAIA Administration Ceftriaxone Sodium 2 gm/ 50 mls @ 100 mls/hr 05/14/24 09:00 05/14/24 08:58 Sodium Chloride IVPB 100 mls/hr Q24HR MAIA Administration Protocol Metoprolol Tartrate 25 mg 05/14/24 09:00 05/14/24 08:58 Metoprolol Tartrate 25 Mg Tab PO 25 mg BID MAIA Administration Morphine Sulfate 4 mg 05/13/24 14:39 Morphine Sulfate 4 Mg/Ml Syringe IV Q4HR PRN Severe Pain (Scale 7 to 10) Naloxone HCl 0.2 mg 05/13/24 14:39 Naloxone 0.4 Mg/Ml 1 Ml Vial IV Q2M PRN Opioid Reversal Ondansetron HCl 4 mg 05/13/24 14:39 Ondansetron 4 Mg/2 Ml Vial IVP Q8HR PRN Nausea And Vomiting 05/14/24 05:52 05/14/24 05:52
[2024-05-14] MEDS: TAMSULOSIN 0.4 MG CAP.ER.24H PO SCH (10:31)
[2024-05-14] MEDS: LEVOTHYROXINE 50 MCG TAB PO SCH (10:31)
[2024-05-14 12:30] LABS: Glucose,Whole Blood 150 mg/dL (70-110)
[2024-05-14] MEDS: INSULIN ASPART (NovoLOG) 100 UNIT/ML VIAL SQ SCH (12:55)
--- NOTE | 2024-05-14 13:04 | P.HPIM ---
History of Present Illness H&P Date: 05/14/24 Chief Complaint: Weakness Patient is a 78 year old male with past medical history of dementia, diabetes mellitus, hypothyroidism, hypertension, prostate cancer with a chronic indwelling catheter presented to the ED with generalized weakness. The patient is confused and a poor historian. He only answers to yes or no questions about the Review of systems. No family at bedside to provide additional history. ED documentation reviewed. He does mention having dysuria but doesn't know about the onset of symptoms. Denies having hematuria, lower abdominal pain, fever, chills. He also reports having tingling in the finger of his right hand. Denies shortness of breath, cough, abdominal pain, nausea, vomiting, diaphoresis, hematuria, hematochezia, melena, numbness, headache, slurring of speech. In the ED patient was treated with ceftriaxone, diltiazem drip, magnesium oxide, magnesium sulfate, 0.9 normal saline Vitals on admission T 98.4 F, RI 122, RR 18, BP 116/64, O2 sat 97% on room air EKG independently interpreted as atrial flutter, rate 114 bpm, QTc 392 ms Chest xray shows no acute cardiopulmonary disease/process Abdomen and Pelvis CT shows no CT evidence of acute abdominal/pelvic process within limitations of a noncontrast exam Labs on admission show hemoglobin 10.4 APTT 19.3, sodium 134, phosphorus 5.2, magnesium 1.5, lactic acid 2.0, proBNP 152 Troponin I 0.113, 0.126, 0.123 UA shows 1+ protein, 1+ ketones, large leukocyte esterase, 14 RBC, more than 182 WBC, occasional WBC clumps, many acid crystals, rare bacteria and rare mucus Review of systems: Pertinent positives and negatives as discussed in HPI, a complete review of systems was performed and all other systems are negative. PMH: Prostate cancer, dementia, diabetes mellitus, hypothyroidism, hypertension Social history: Tobacco: Vaper Alcohol: Denies use Recreational drugs: Denies use Travel: No recent travel history Sick contacts: None Physical examination: Vital signs reviewed General: nontoxic, no distress, appears at stated age Derm: warm, dry, intact Head: atraumatic, normocephalic, symmetric Eyes: EOMI, anicteric sclera Mouth: no lip lesion, mucus membranes moist Cardiovascular: S1 S2 reg, no murmur Lungs: CTA bilateral, no rhonchi, no rales, no accessory muscle use Abdominal: soft, non-tender to palpation Extremities: No cyanosis, clubbing, or pedal edema. Neuro: awake and alert, oriented x1, no gross neurological deficit Psych: well appearing, appropriate affect Assessment/Plan: Patient is a 78-year-old male with past medical history of prostate cancer, dementia, diabetes mellitus who presented to the ED with a complaint of weakness. He has been admitted for generalised weakness due to UTI secondary to chronic indwelling rowe catheter and is currently managed with Rocephin. Active: #. Generalised weakness #. Urinary tract infection #. Chronic Indwelling Rowe catheter UA shows 1+ protein, 1+ ketones, large leukocyte esterase, 14 RBC, more than 182 WBC, occasional WBC clumps, many acid crystals, rare bacteria and rare mucus Started on Rocephin 2 g IVPB every 24 hours ID consulted #. Elevated troponins #. Atrial flutter with a rapid ventricular response EKG independently interpreted as atrial flutter, rate 114 bpm, QTc 392 ms Troponin I 0.113, 0.126, 0.123 Started on metoprolol 25 mg p.o. twice daily TSH and T4 ordered Obtain echocardiogram Continue Telemetry monitoring Cardiology consulted #. Pain management Continue Morphine 4 mg IV Q4HR PRN #. Nausea and vomiting Continue Ondansetron 4 mg IVP Q8HR PRN Chronic: #. Non insulin dependent diabetes mellitus Hold home oral hypoglycemics Insulin sliding scale with ACHS blood glucose monitoring A1c ordered #. Cognitive decline Continue Donepezil 5 mg PO HS #. Hypothyroidism Continue Levothyroxine 50 mcg PO daily #. Prostate cancer Continue Flomax 0.4 mg PO daily #. Hypertension Hold home med Lisinopril as the BP today is 127/67 F: 0.9 normal saline 75 mL/h E: Replete as required N: Heart healthy diet A: Ambulatory DVT prophylaxis: Lovenox 40 mg SQ daily GI prophylaxis: Pantoprazole 40 mg PO daily The patient is admitted with an anticipated more than 2 midnight stay for evaluation of weakness CODE STATUS: Full code Discussed with: Patient and family Anticipated discharge place: Home Past Medical History Past Medical History: Cancer, Dementia, Diabetes Mellitus, Prostate Disorder Additional Past Medical History / Comment(s): prostate cancer, chronic rowe History of Any Multi-Drug Resistant Organisms: None Reported Past Surgical History: No Surgical Hx Reported Past Anesthesia/Blood Transfusion Reactions: No Reported Reaction Smoking Status: Vaper Past Alcohol Use History: None Reported Past Drug Use History: None Reported Medications and Allergies Home Medications Medication Instructions Recorded Confirmed Type Donepezil [Aricept] 5 mg PO HS 03/18/23 05/13/24 History Ferrous Sulfate [Iron (65 MG 325 mg PO HS 03/18/23 05/13/24 History Elemental)] Levothyroxine Sodium [Synthroid] 50 mcg PO DAILY 03/18/23 05/13/24 History glipiZIDE 2.5 mg PO HS 03/18/23 05/13/24 History metFORMIN HCL 1,000 mg PO BID 03/18/23 05/13/24 History Nitrofurantoin Monohyd/M-Cryst 100 mg PO BID 05/13/24 05/13/24 History [Macrobid] Tamsulosin [Flomax] 0.4 mg PO DAILY 05/13/24 05/13/24 History glipiZIDE [Glucotrol] 5 mg PO DAILY 05/13/24 05/13/24 History lisinopriL 40 mg PO DAILY 05/13/24 05/13/24 History Allergies Allergy/AdvReac Type Severity Reaction Status Date / Time No Known Allergies Allergy Verified 05/13/24 14:35 Physical Exam Vitals: Vital Signs Temp Pulse Resp BP Pulse Ox 05/14/24 07:20 98.3 F 92 20 127/67 98 05/14/24 06:49 75 18 125/65 97 05/14/24 04:10 70 18 96/44 97 05/14/24 01:55 76 18 127/67 97 05/13/24 22:00 66 18 140/66 97 05/13/24 20:10 88 18 140/66 97 05/13/24 18:10 89 18 97/60 96 05/13/24 17:00 84 18 100/60 96 05/13/24 15:48 79 18 140/79 96 05/13/24 14:00 93 20 129/63 99 05/13/24 13:53 109 H 20 118/68 98 05/13/24 11:53 106 H 20 135/68 98 05/13/24 11:47 98.4 F 122 H 18 116/64 97 Results CBC & Chem 7: 05/14/24 05:52 11/30/24 05:52 Labs: Abnormal Lab Results - Last 24 Hours (Table) 05/13/24 05/13/24 05/13/24 Range/Units 12:16 12:16 12:16 RBC 3.41 L (4.30-5.90) m/uL Hgb 10.4 L (13.0-17.5) gm/dL Hct 31.7 L (39.0-53.0) % Lymphocytes # 0.8 L (1.0-4.8) k/uL APTT 19.3 L (22.0-30.0) sec Sodium 134 L (137-145) mmol/L Glucose 142 H (74-99) mg/dL Phosphorus 5.2 H (2.5-4.5) mg/dL Magnesium 1.5 L (1.6-2.3) mg/dL Troponin I (0.000-0.034) ng/mL Urine Protein (Negative) Urine Ketones (Negative) Ur Leukocyte Esterase (Negative) Urine RBC (0-5) /hpf Urine WBC (0-5) /hpf Urine WBC Clumps (None) /hpf Uric Acid Crystals (None) /hpf Urine Bacteria (None) /hpf Urine Mucus (None) /hpf 05/13/24 05/13/24 05/13/24 Range/Units 12:16 13:29 15:01 RBC (4.30-5.90) m/uL Hgb (13.0-17.5) gm/dL Hct (39.0-53.0) % Lymphocytes # (1.0-4.8) k/uL APTT (22.0-30.0) sec Sodium (137-145) mmol/L Glucose (74-99) mg/dL Phosphorus (2.5-4.5) mg/dL Magnesium (1.6-2.3) mg/dL Troponin I 0.113 H* 0.126 H* (0.000-0.034) ng/mL Urine Protein 1+ H (Negative) Urine Ketones 1+ H (Negative) Ur Leukocyte Esterase Large H (Negative) Urine RBC 14 H (0-5) /hpf Urine WBC >182 H (0-5) /hpf Urine WBC Clumps Occasional H (None) /hpf Uric Acid Crystals Many H (None) /hpf Urine Bacteria Rare H (None) /hpf Urine Mucus Rare H (None) /hpf 05/13/24 05/14/24 05/14/24 Range/Units 17:36 05:52 05:52 RBC 3.00 L (4.30-5.90) m/uL Hgb 9.4 L (13.0-17.5) gm/dL Hct 28.0 L (39.0-53.0) % Lymphocytes # (1.0-4.8) k/uL APTT (22.0-30.0) sec Sodium 136 L (137-145) mmol/L Glucose 128 H (74-99) mg/dL Phosphorus (2.5-4.5) mg/dL Magnesium (1.6-2.3) mg/dL Troponin I 0.123 H* (0.000-0.034) ng/mL Urine Protein (Negative) Urine Ketones (Negative) Ur Leukocyte Esterase (Negative) Urine RBC (0-5) /hpf Urine WBC (0-5) /hpf Urine WBC Clumps (None) /hpf Uric Acid Crystals (None) /hpf Urine Bacteria (None) /hpf Urine Mucus (None) /hpf
--- NOTE | 2024-05-14 14:05 | XR ---
EXAMINATION TYPE: XR Hip Complete LT DATE OF EXAM: 05/14/2024 1:57 PM COMPARISON: None CLINICAL INDICATION: Male, 78 years old with history of left hip pain; [facility] TECHNIQUE: XR Hip Complete LT; Frontal and lateral views FINDINGS: No evidence for acute process, joint dislocation or significant soft tissue swelling. Osteo phyte formation of the superior acetabulum of the hip. There is mild joint space narrowing. IMPRESSION: 1. No evidence for acute process. 2. Mild hip osteoarthrosis. [facility], , 05/14/2024 2:02 PM
[2024-05-14 16:19] LABS: Glucose,Whole Blood 172 mg/dL (70-110)
[2024-05-14] MEDS: lisinopriL 20 MG TAB PO SCH (16:33)
[2024-05-14 20:22] LABS: Glucose,Whole Blood 152 mg/dL (70-110)
--- NOTE | 2024-05-14 21:39 | P.CONS ---
History of Present Illness - Reason for Consult Consult date: 05/14/24 Urinary tract infection Requesting physician: Malik Richter - Chief Complaint Left hip pain and weakness x 1 week - History of Present Illness Patient is a 78-year-old male with a past medical history significant for diabetes mellitus prostate cancer patient did have a chronic indwelling Rowe catheter that is usually changed once a month started having a problem with pain weakness and heaviness to the left leg about a week ago the patient was evaluated by his primary care physician and was diagnosed with a UTI that has been treated with oral Macrobid however the patient did not have any improvement in the symptoms patient presenting to the hospital concerning for weakness confusion cloudy urine and apparently some urinary discomfort along with generalized weakness patient on arrival to the ER was afebrile patient was not tachycardic hypotensive or hypoxic and no need for supplemental oxygen patient did have white count of 4.8 creatinine has been normal electrolytes are normal liver enzymes normal did have elevated troponin urine has been signific antly positive with large leukocyte esterase more than 1-2 WBC patient did have abdominal pelvis CT no evidence for acute abdominal pelvis process chest x-ray was negative for acute infiltrate and also have x-ray of the hip did not show any acute process mild hip osteoarthrosis patient was started on Rocephin concerning for catheter assisted UTI infectious disease was consulted for further management of antibiotic therapy Review of Systems Positive point and negatives has been mentioned in the HPI, complete review of systems was performed and all other systems are negative Past Medical History Past Medical History: Cancer, Dementia, Diabetes Mellitus, Prostate Disorder Additional Past Medical History / Comment(s): prostate cancer, chronic rowe History of Any Multi-Drug Resistant Organisms: None Reported Past Surgical History: No Surgical Hx Reported Past Anesthesia/Blood Transfusion Reactions: No Reported Reaction Smoking Status: Dyaner Past Alcohol Use History: None Reported Past Drug Use History: None Reported Medications and Allergies Home Medications Medication Instructions Recorded Confirmed Type Donepezil [Aricept] 5 mg PO HS 03/18/23 05/13/24 History Ferrous Sulfate [Iron (65 MG 325 mg PO HS 03/18/23 05/13/24 History Elemental)] Levothyroxine Sodium [Synthroid] 50 mcg PO DAILY 03/18/23 05/13/24 History glipiZIDE 2.5 mg PO HS 03/18/23 05/13/24 History metFORMIN HCL 1,000 mg PO BID 03/18/23 05/13/24 History Nitrofurantoin Monohyd/M-Cryst 100 mg PO BID 05/13/24 05/13/24 History [Macrobid] Tamsulosin [Flomax] 0.4 mg PO DAILY 05/13/24 05/13/24 History glipiZIDE [Glucotrol] 5 mg PO DAILY 05/13/24 05/13/24 History lisinopriL 40 mg PO DAILY 05/13/24 05/13/24 History Allergies Allergy/AdvReac Type Severity Reaction Status Date / Time No Known Allergies Allergy Verified 05/13/24 14:35 Physical Exam Vitals: Vital Signs Temp Pulse Resp BP Pulse Ox 05/14/24 10:43 62 20 127/67 98 05/14/24 07:20 98.3 F 92 20 127/67 98 05/14/24 06:49 75 18 125/65 97 05/14/24 04:10 70 18 96/44 97 05/14/24 01:55 76 18 127/67 97 05/13/24 22:00 66 18 140/66 97 05/13/24 20:10 88 18 140/66 97 05/13/24 18:10 89 18 97/60 96 05/13/24 17:00 84 18 100/60 96 05/13/24 15:48 79 18 140/79 96 05/13/24 14:00 93 20 129/63 99 05/13/24 13:53 109 H 20 118/68 98 GENERAL DESCRIPTION: Elderly male lying in bed, no distress. No tachypnea or accessory muscle of respiration use. HEENT: Shows Pallor , no scleral icterus. Oral mucous membrane is dry. NECK: Trachea central, no thyromegaly. LUNGS: Unlabored breathing. Clear to auscultation anteriorly. No wheeze or crackle. HEART: S1, S2, regular rate and rhythm. No loud murmur ABDOMEN: Soft, no tenderness , guarding or rigidity, no organomegaly EXTREMITIES: No edema of feet. SKIN: No rash, no masses palpable. NEUROLOGICAL: The patient is awake, alert, oriented x3, mood and affect normal. Results CBC & Chem 7: 05/15/24 08:08 05/15/24 08:08 Labs: Abnormal Lab Results - Last 24 Hours (Table) 11/05/13/24 05/13/24 Range/Units 13:29 15:01 17:36 RBC (4.30-5.90) m/uL Hgb (13.0-17.5) gm/dL Hct (39.0-53.0) % Sodium (137-145) mmol/L Glucose (74-99) mg/dL POC Glucose (mg/dL) (70-110) mg/dL Troponin I 0.126 H* 0.123 H* (0.000-0.034) ng/mL Urine Protein 1+ H (Negative) Urine Ketones 1+ H (Negative) Ur Leukocyte Esterase Large H (Negative) Urine RBC 14 H (0-5) /hpf Urine WBC >182 H (0-5) /hpf Urine WBC Clumps Occasional H (None) /hpf Uric Acid Crystals Many H (None) /hpf Urine Bacteria Rare H (None) /hpf Urine Mucus Rare H (None) /hpf 05/14/24 05/14/24 05/14/24 Range/Units 05:52 05:52 12:29 RBC 3.00 L (4.30-5.90) m/uL Hgb 9.4 L (13.0-17.5) gm/dL Hct 28.0 L (39.0-53.0) % Sodium 136 L (137-145) mmol/L Glucose 128 H (74-99) mg/dL POC Glucose (mg/dL) 150 H (70-110) mg/dL Troponin I (0.000-0.034) ng/mL Urine Protein (Negative) Urine Ketones (Negative) Ur Leukocyte Esterase (Negative) Urine RBC (0-5) /hpf Urine WBC (0-5) /hpf Urine WBC Clumps (None) /hpf Uric Acid Crystals (None) /hpf Urine Bacteria (None) /hpf Urine Mucus (None) /hpf Assessment and Plan (1) Urinary tract infection Current Visit: Yes Status: Acute Code(s): N39.0 - URINARY TRACT INFECTION, SITE NOT SPECIFIED SNOMED Code(s): 94841557 Plan: 1patient presented to hospital with mostly pain to the left hip along with generalized weakness some suprapubic discomfort significantly positive UA concerning for catheter assisted UTI failing outpatient oral Macrobid therapy 2-the patient Rowe catheter has been changed CT did not show any hydronephrosis or renal stone 3-Rocephin 2 g daily while waiting for the culture to finalize Family at the bedside multiple question concern answered We will follow on clinical condition and cultures to further adjust medication if needed Thank you for this consultation we will follow the patient along with you Dictation was produced using [employer] dictation software. please excuse any grammatical, word or spelling errors. Time with Patient: Greater than 30
[2024-05-15] MEDS: DONEPEZIL 5 MG TAB PO SCH (00:24)
[2024-05-15 06:06] LABS: Glucose,Whole Blood 150 mg/dL (70-110)
[2024-05-15] MEDS: PANTOPRAZOLE 40 MG TABLET PO SCH (06:40)
--- NOTE | 2024-05-15 07:57 | CA ---
Transthoracic Echo Report Name: Abelardo Singh Age: 78 Gender: M : 1945 Exam Date: 05/14/2024 14:35 Exam Location: [address] Echo Ht (in): 67 Wt (lb): 150 Ordering Physician: Kayla Dowell Attending/Referring Phys: [id number], [facility] Melissa Andrews RDCS Procedure CPT: Indications: elevated troponins, tachycardia Cardiac Hx: Technical Quality: Fair Contrast 1: Total Dose (mL): Contrast 2: Total Dose (mL): MEASUREMENTS (Male / Female) Normal Values 2D ECHO LV Diastolic Diameter PLAX 4.1 cm 4.2 - 5.9 / 3.9 - 5.3 cm LV Systolic Diameter PLAX 2.7 cm IVS Diastolic Thickness 1.4 cm 0.6 - 1.0 / 0.6 - 0.9 cm LVPW Diastolic Thickness 1.2 cm 0.6 - 1.0 / 0.6 - 0.9 cm LV Relative Wall Thickness 0.6 RV Internal Dim ED PLAX 1.8 cm LA Systolic Diameter LX 3.1 cm 3.0 - 4.0 / 2.7 - 3.8 cm LV Diastolic Volume MOD BP 44.7 cm??? 67 - 155 / 56 - 104 cm??? LV Systolic Volume MOD BP 21.0 cm??? 22 - 58 / 19 - 49 cm??? LV Ejection Fraction MOD BP 53.0 % >= 55 % LV Cardiac Index MOD BP 883.0 cm???/min???m??? LV Diastolic Volume MOD 4C 56.3 cm??? LV Systolic Volume MOD 4C 17.2 cm??? LV Ejection Fraction MOD 4C 69.5 % LV Cardiac Index MOD 4C 1457.7 cm???/min???m??? LV Diastolic Length 4C 7.2 cm LV Systolic Length 4C 5.4 cm LV Diastolic Volume MOD 2C 33.1 cm??? LV Systolic Volume MOD 2C 21.4 cm??? LV Ejection Fraction MOD 2C 35.3 % LV Cardiac Index MOD 2C 435.1 cm???/min???m??? LV Diastolic Length 2C 6.6 cm LV Systolic Length 2C 6.6 cm LA Volume 40.6 cm??? 18 - 58 / 22 - 52 cm??? LA Volume Index 22.6 cm???/m??? 16 - 28 cm???/m??? M-MODE Aortic Root Diameter MM 3.8 cm LA Systolic Diameter MM 2.8 cm LA Ao Ratio MM 0.7 AV Cusp Separation MM 2.4 cm DOPPLER AI Peak Velocity 199.5 cm/s AI Peak Gradient 15.9 mmHg AI Pressure Half Time 633.6 ms MV Area PHT 2.1 cm??? Mitral E Point Velocity 61.5 cm/s Mitral A Point Velocity 73.9 cm/s Mitral E to A Ratio 0.8 MV Deceleration Time 354.2 ms TR Peak Velocity 197.2 cm/s TR Peak Gradient 15.6 mmHg FINDINGS Left Ventricle Left ventricular ejection fraction is estimated at 55-60%. Left ventricular cavity size normal. No obvious regional wall motion abnormalities.Mildly increased left ventricular wall thickness. Right Ventricle Normal right ventricular size and function. Right ventricular systolic pressure within normal limits. Right Atrium Normal right atrial size. Left Atrium Normal left atrial size. Mitral Valve Structurally normal mitral valve. Mild mitral regurgitation. No mitral stenosis. Aortic Valve Trileaflet aortic valve. No aortic stenosis. mild aortic regurgitation. Tricuspid Valve Structurally normal tricuspid valve. mild tricuspid regurgitation. No tricuspid stenosis. Pulmonic Valve Structurally normal pulmonic valve. Trace pulmonic regurgitation. No pulmonic stenosis. Pericardium No pericardial or pleural effusion. Aorta Mild aortic dilatation at the level of the sinuses of valsalva (root). CONCLUSIONS 1. Normal left ventricular size and systolic function 2. Mild mitral, aortic and tricuspid regurgitation with no evidence of pulmonary hypertension Previewed by: Dr. Nicole Cheung MD (Electronically Signed) Final Date: 15 May 2024 07:56
[2024-05-15 08:25] LABS: HCT 29.7 % (39.0-53.0); HGB 9.8 gm/dL (13.0-17.5); MCH 30.7 pg (25.0-35.0); MCHC 33.1 g/dL (31.0-37.0); MCV 92.8 fL (80.0-100.0); Mean Platelet Volume 6.7; Platelet Count 279 k/uL (150-450); RDW 13.3 % (11.5-15.5); WBC 5.8 k/uL (3.8-10.6)
[2024-05-15 08:45] LABS: African American GFR (CKD) 85 (>60 ml/min/1.73 sqM); Anion Gap 9 mmol/L; Blood Urea Nitrogen 9 mg/dL (9-20); Calcium 9.3 mg/dL (8.4-10.2); Carbon Dioxide 24 mmol/L (22-30); Chloride 101 mmol/L (98-107); Glucose 161 mg/dL (74-99); Non-African American GFR(CKD) 73 (>60 ml/min/1.73 sqM); Potassium 4.1 mmol/L (3.5-5.1); Sodium 134 mmol/L (137-145)
[2024-05-15] MEDS: ENOXAPARIN 40 MG/0.4 ML SYRINGE SQ SCH (09:34)
--- NOTE | 2024-05-15 11:14 | P.PN ---
Subjective HISTORY OF PRESENT ILLNESS: This is a 78-year-old male with a past medical history significant for hypertension. 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 We have been asked to see the patient in consultation for elevated troponins. Patient examined at the bedside in the emergency room. Patient was brought to the hospital for increasing weakness. Patient was found to have a urinary tract infection. He does have an indwelling urinary catheter. The patient is confused at the time of examination. There is no family present to provide additional HPI. The patient denies having any chest pain or pressure. He denies any shortness of b reath. He denies any dizziness or lightheadedness. Denies any palpitations. DIAGNOSTICS: - EKG reveals sinus tachycardia. Repeat EKG reveals sinus mechanism. - Chest xray negative for acute process - Laboratory data: WBC 4.8. Hemoglobin 9.4. Platelet count 281. Sodium 136. Potassium 4.3. BUN 12. Creatinine 1.03. Troponin 0.113. 0.126. 0.123. proBNP 152. - Current home cardiac medications include lisinopril 40 mg daily - No previous echocardiogram, stress test, or cardiac catheterization available in EMR for review 05/15/2024 Patient examined this morning the bedside. Patient currently denies any chest pain or pressure. He denies shortness of breath. He is maintaining sinus m echanism with a heart rate in the 80s. No evidence of A-fib or flutter. Patient's blood pressures have been elevated in the [id number]. His lisinopril has been resumed. Echocardiogram completed revealing ejection fraction 55 to 60%. PHYSICAL EXAM: VITAL SIGNS: Reviewed. GENERAL: Well-developed in no acute distress. HEENT: Head is normocephalic. Pupils are equal, round. Sclerae anicteric. Mucous membranes of the mouth are moist. Neck supple. No JVD or thyromegaly LUNGS: Respirations even and unlabored. Lungs essentially clear to auscultation bilaterally. HEART: Regular rate and rhythm. S1 and S2 heard. Systolic murmur noted. ABDOMEN: Soft. Nondistended. Nontender. EXTREMITIES: Normal range of motion. No clubbing or cyanosis. Peripheral pulses intact. No lower extremity edema NEUROLOGIC: Awake and alert. Oriented x 1 ASSESSMENT: Generalized weakness Urinary tract infection Altered mental status, baseline unknown Chronic indwelling urinary catheter Sinus tachycardia Atrial flutter/fibrillation, ruled out, EKG reveals sinus tachycardia Elevated troponins, flat, no evidence of ACS, likely type II LA secondary to infectious process History of hypertension PLAN: EKG and bedside telemetry reveals sinus mechanism with no evidence of atrial fibrillation/atrial flutter Continue current cardiac medications No further inpatient recommendations from a cardiac standpoint We will sign off. Please reconsult if needed. Nurse practitioner note has been reviewed by physician. Signing provider agrees with the documented findings, assessment, and plan of care documented by ORTHODONTIC TECHNICIAN as a scribe. Objective - Vital Signs Vital signs: Vital Signs Temp 98.5 F 05/15/24 09:25 Pulse 89 05/15/24 09:25 Resp 16 05/15/24 09:25 BP 168/83 05/15/24 09:25 Pulse Ox 97 05/15/24 09:25 FiO2 Intake & Output 05/14/24 05/15/24 05/15/24 18:59 06:59 18:59 Intake Total 240 10 Output Total 600 1250 Balance -600 -1010 10 Weight 68.039 kg 67 kg Intake: IV 10 Invasive Line 3 10 Oral 240 0 Output: Urine 600 1250 Other: Voiding Method Indwelling Catheter Indwelling Catheter Indwelling Catheter # Voids 1 # Bowel Movements 1 - Labs CBC & Chem 7: 05/15/24 08:08 05/15/24 08:08 Labs: Abnormal Lab Results - Last 24 Hours (Table) 05/14/24 05/14/24 05/14/24 Range/Units 12:29 16:17 20:20 RBC (4.30-5.90) m/uL Hgb (13.0-17.5) gm/dL Hct (39.0-53.0) % Sodium (137-145) mmol/L Glucose (74-99) mg/dL POC Glucose (mg/dL) 150 H 172 H 152 H (70-110) mg/dL 05/15/24 05/15/24 05/15/24 Range/Units 06:05 08:08 08:08 RBC 3.20 L (4.30-5.90) m/uL Hgb 9.8 L (13.0-17.5) gm/dL Hct 29.7 L (39.0-53.0) % Sodium 134 L (137-145) mmol/L Glucose 161 H (74-99) mg/dL POC Glucose (mg/dL) 150 H (70-110) mg/dL
[2024-05-15 11:26] LABS: Glucose,Whole Blood 232 mg/dL (70-110)
[2024-05-15 11:39] LABS: Appearance,Urine Clear (Clear); Bacteria,Urine Rare /hpf; Bilirubin,Urine Negative (Negative); Blood,Urine Small (Negative); Color,Urine Colorless; Glucose,Urine (UA) Trace (Negative); Ketones,Urine 2+ (Negative); Leukocyte Esterase,Urine Moderate (Negative); Mucus,Urine Rare /hpf; Nitrite,Urine Negative (Negative); PH, Urine 5.5 (5.0-8.0); Protein,Urine Trace (Negative); RBC,Urine 5 /hpf (0-5); Specific Gravity,Urine 1.014 (1.001-1.035); Squamous Epithelial Cell,Urine 1 /hpf (0-4); Urobilinogen,Urine <2.0 mg/dL (<2.0); WBC,Urine 37 /hpf (0-5)
[2024-05-15] MEDS: METOPROLOL TARTRATE 25 MG TAB PO SCH (12:37)
--- NOTE | 2024-05-15 13:10 | P.PN ---
Subjective Progress Note Date: 05/15/24 Principal diagnosis: Reason for follow-up is catheter associated UTI Patient is a 78-year-old male with a past medical history significant for diabetes mellitus prostate cancer patient did have a chronic indwelling Mccord catheter was brought to the hospital complaining of weakness pain to the left leg patient did have a positive UA concerning for catheter associated UTI prompted this consultation. On today's evaluation that is 05/15/2024, Patient is afebrile patient is currently on room air and denies having any shortness of breath, the patient denies any chest pain or cough, the patient denies any nausea vomiting did not have any abdominal pain and no diarrhea. Patient white count is 5.8, creatinine 0.99 cultures currently pending Objective - Vital Signs Vital signs: Vital Signs Temp 99.3 F 05/15/24 11:14 Pulse 124 H 05/15/24 11:14 Resp 18 05/15/24 11:14 BP 121/67 05/15/24 11:14 Pulse Ox 98 05/15/24 11:14 FiO2 Intake & Output 05/14/24 05/15/24 05/15/24 18:59 06:59 18:59 Intake Total 240 10 Output Total 600 1250 Balance -600 -1010 10 Weight 68.039 kg 67 kg Intake: IV 10 Invasive Line 3 10 Oral 240 0 Output: Urine 600 1250 Other: Voiding Method Indwelling Catheter Indwelling Catheter Indwelling Catheter # Voids 1 # Bowel Movements 1 - Exam GENERAL DESCRIPTION: An elderly male lying in bed in no distress RESPIRATORY SYSTEM: Unlabored breathing , decreased breath sounds at bases HEART: S1 S2 regular rate and rhythm , ABDOMEN: Soft , no tenderness EXTREMITIES: No edema feet - Labs CBC & Chem 7: 05/15/24 08:08 05/15/24 08:08 Labs: Abnormal Lab Results - Last 24 Hours (Table) 05/14/24 05/14/24 05/15/24 Range/Units 16:17 20:20 06:05 RBC (4.30-5.90) m/uL Hgb (13.0-17.5) gm/dL Hct (39.0-53.0) % Sodium (137-145) mmol/L Glucose (74-99) mg/dL POC Glucose (mg/dL) 172 H 152 H 150 H (70-110) mg/dL Hemoglobin A1c (<=6.0) % Urine Protein (Negative) Urine Glucose (UA) (Negative) Urine Ketones (Negative) Urine Blood (Negative) Ur Leukocyte Esterase (Negative) Urine WBC (0-5) /hpf Urine Bacteria (None) /hpf Urine Mucus (None) /hpf 05/15/24 05/15/24 05/15/24 Range/Units 08:08 08:08 08:08 RBC 3.20 L (4.30-5.90) m/uL Hgb 9.8 L (13.0-17.5) gm/dL Hct 29.7 L (39.0-53.0) % Sodium 134 L (137-145) mmol/L Glucose 161 H (74-99) mg/dL POC Glucose (mg/dL) (70-110) mg/dL Hemoglobin A1c 7.1 H (<=6.0) % Urine Protein (Negative) Urine Glucose (UA) (Negative) Urine Ketones (Negative) Urine Blood (Negative) Ur Leukocyte Esterase (Negative) Urine WBC (0-5) /hpf Urine Bacteria (None) /hpf Urine Mucus (None) /hpf 05/15/24 05/15/24 Range/Units 11:03 11:20 RBC (4.30-5.90) m/uL Hgb (13.0-17.5) gm/dL Hct (39.0-53.0) % Sodium (137-145) mmol/L Glucose (74-99) mg/dL POC Glucose (mg/dL) 232 H (70-110) mg/dL Hemoglobin A1c (<=6.0) % Urine Protein Trace H (Negative) Urine Glucose (UA) Trace H (Negative) Urine Ketones 2+ H (Negative) Urine Blood Small H (Negative) Ur Leukocyte Esterase Moderate H (Negative) Urine WBC 37 H (0-5) /hpf Urine Bacteria Rare H (None) /hpf Urine Mucus Rare H (None) /hpf Assessment and Plan (1) Urinary tract infection Current Visit: Yes Status: Acute Code(s): N39.0 - URINARY TRACT INFECTION, SITE NOT SPECIFIED SNOMED Code(s): 52674792 Plan: 1patient presented to hospital with mostly pain to the left hip along with generalized weakness some suprapubic discomfort significantly all evening concerning for catheter assisted UTI failing outpatient oral Macrobid therapy 2-the patient Mccord catheter has been changed CT did not show any hydronephrosis or renal stone 3-X-rays of the spine done at [facility] on 05/09/2024 results were read from [facility] system did shows hypertrophic facet arthropathy throughout with degenerative grade 1 retrolisthesis L2-L3 no vertebral compression collapse 4-patient will be treated Rocephin 2 g daily while waiting for the culture to finalize at the bedside multiple question concern answered Dictation was produced using [employer] dictation software. please excuse any grammatical, word or spelling errors. Time with Patient: Less than 30
--- NOTE | 2024-05-15 13:36 | CT ---
EXAMINATION TYPE: CT brain wo con DATE OF EXAM: 05/15/2024 1:29 PM COMPARISON: None. CLINICAL INDICATION: Male, 78 years old with history of left leg weakness, left leg weakness TECHNIQUE: Brain: Axial CT images of the brain were obtained with coronal and sagittal reformats created and rev iewed. Contrast used: None. Oral contrast used: None. CT DLP: 1180.4 mGycm, Automated exposure control for dose reduction was used. FINDINGS: Brain: Extra-axial spaces: No abnormal extra-axial fluid collections. Ventricular system: Dilatation in proportion to cerebral atrophy. Cerebral parenchyma: Small area of zuniga-white matter differentiation loss e in the parietal/occipital region on the right. Zuniga-white matter loss of differentiation in the right frontal lobe near the me niscal apex series 201 image 49Cerebral atrophy. No acute intraparenchymal hemorrhage or mass effect. The remainder of the zuniga-white junctions are well differentiated. Scattered hypoattenuating areas are seen within the white matter. Cerebellum: Unremarkable. Mass effect: No evidence of midline shift. Intracranial vasculature: Atherosclerotic calcifications of the intracranial vessels. Soft tissues: Normal. Calvarium/osseous structures: No depressed skull fracture. Paranasal sinuses and mastoid air cells: Mild scattered paranasal sinus disease. Visualized orbits: Bilateral aphakia IMPRESSION: Zuniga-white matter loss of differentiation in the right frontal lobe near the skull apex and in the r ight parietal/occipital lobe correlate for microinfarcts. Consider MRI of the brain for confirmation. [facility], , 05/15/2024 1:33 PM
--- NOTE | 2024-05-15 14:07 | P.PN ---
Subjective Progress Note Date: 05/15/24 Patient is a 78 year old male with past medical history of dementia, diabetes mellitus, hypothyroidism, hypertension, prostate cancer with a chronic indwelling catheter presented to the ED with generalized weakness. The patient is confused and a poor historian. He only answers to yes or no questions about the Review of systems. No family at bedside to provide additional history. ED documentation reviewed. He does mention having dysuria but doesn't know about the onset of symptoms. Denies having hematuria, lower abdominal pain, fever, chills. He also reports having tingling in the finger of his right hand. Denies shortness of breath, cough, abdominal pain, nausea, vomiting, diaphoresis, hematuria, hematochezia, melena, numbness, headache, slurring of speech. In the ED patient was treated with ceftriaxone, diltiazem drip, magnesium oxide, magnesium sulfate, 0.9 normal saline Vitals on admission T 98.4 F, TX 122, RR 18, BP 116/64, O2 sat 97% on room air EKG independently interpreted as atrial flutter, rate 114 bpm, QTc 392 ms Chest xray shows no acute cardiopulmonary disease/process Abdomen and Pelvis CT shows no CT evidence of acute abdominal/pelvic process within limitations of a noncontrast exam Labs on admission show hemoglobin 10.4 APTT 19.3, sodium 134, phosphorus 5.2, magnesium 1.5, lactic acid 2.0, proBNP 152 Troponin I 0.113, 0.126, 0.123 UA shows 1+ protein, 1+ ketones, large leukocyte esterase, 14 RBC, more than 182 WBC, occasional WBC clumps, many acid crystals, rare bacteria and rare mucus 05/15/2024 Patient is evaluated today in follow up on the medical floor. His main complaint on admission was left leg heaviness and weakness with difficulty ambulating and feeling fatigued. Since admission the weakness in his left leg has improved. He had an x-ray of the hip which reveals no evidence for acute process and mild hip osteoarthritis. His echocardiogram reveals a normal LV size and systolic function with mild mitral aortic and tricuspid regurgitation with no evidence of pulmonary hypertension. He is continued on IV ceftriaxone with concern for urinary tract infection. It does not appear that a urine culture has been sent. His indwelling Mccord catheter was changed out in the ER we did repeat a urinalysis today after that was done and there is improvement in the UA. A urine culture was sent today. A brain CT was ordered to rule out acute stroke. Review of Systems Constitutional: Denied any fatigue denied any fever. Cardio vascular: denied any chest pain, palpitations Gastrointestinal: denied any nausea, vomiting, diarrhea Pulmonary: Denied any shortness of breath cough Neurologic denied any new focal deficits All inpatient medications were reviewed and appropriate changes in these medications as dictated in the interval history and assessment and plan. PHYSICAL EXAMINATION: GENERAL: The patient is alert and oriented x3, not in any acute distress. Well developed, well nourished. HEENT: Pupils are round and equally reacting to light. EOMI. No scleral icterus. No conjunctival pallor. Normocephalic, atraumatic. No pharyngeal erythema. No thyromegaly. CARDIOVASCULAR: S1 and S2 present. No murmurs, rubs, or gallops. PULMONARY: Chest is clear to auscultation, no wheezing or crackles. ABDOMEN: Soft, nontender, nondistended, normoactive bowel sounds. No palpable organomegaly. MUSCULOSKELETAL: No joint swelling or deformity. EXTREMITIES: No cyanosis, clubbing, or pedal edema. NEUROLOGICAL: Gross neurological examination did not reveal any focal deficits. SKIN: No rashes. Assessment and plan Left leg heaviness and weakness concern for acute stroke vs TIA brain CT was ordered and will consult neurology for further evaluation Acute urinary tract infections this is a catheter associated UTI indwelling Mccord catheter was changed and urine culture has been sent patient continues on IV ceftriaxone with infectious disease consultation Sinus tachycardia and hypertension started on metoprolol History of dementia maintained on donepezil Hypertension Hypothyroidism Chronic indwelling Mccord catheter Troponin elevation secondary to type II IA from infection Diabetes mellitus type 2 Prostate cancer GI prophylaxis DVT prophylaxis Code Pending final urine culture continue IV ceftriaxone ID following closely Start the patient oral metoprolol and continue cardiac telemetry Neurology consulted and patient will undergo full stroke workup Check a B12 and folate level Check lipid panel Start aspirin 81 mg daily Physical therapy and Occupational Therapy are consulted for evaluation The impression and plan of care has been dictated by Soco Hagan, Nurse Practitioner as directed. Dr. Jany MD I have performed a history and physical examination and medical decision making of this patient, discussed the same with the dictator, and agree with the dictators assessment and plan as written, documented as a scribe. Based on total visit time, I have performed more than 50% of this visit. Objective - Vital Signs Vital signs: Vital Signs Temp 99.3 F 05/15/24 11:14 Pulse 124 H 05/15/24 11:14 Resp 18 05/15/24 11:14 BP 121/67 05/15/24 11:14 Pulse Ox 98 05/15/24 11:14 FiO2 Intake & Output 05/14/24 05/15/24 05/15/24 18:59 06:59 18:59 Intake Total 240 250 Output Total 600 1250 Balance -600 -1010 250 Weight 68.039 kg 67 kg Intake: IV 10 Invasive Line 3 10 Oral 240 240 Output: Urine 600 1250 Other: Voiding Method Indwelling Catheter Indwelling Catheter Indwelling Catheter # Voids 1 # Bowel Movements 1 - Labs CBC & Chem 7: 05/15/24 08:08 05/15/24 08:08 Labs: Abnormal Lab Results - Last 24 Hours (Table) 05/14/24 05/14/24 05/15/24 Range/Units 16:17 20:20 06:05 RBC (4.30-5.90) m/uL Hgb (13.0-17.5) gm/dL Hct (39.0-53.0) % Sodium (137-145) mmol/L Glucose (74-99) mg/dL POC Glucose (mg/dL) 172 H 152 H 150 H (70-110) mg/dL Hemoglobin A1c (<=6.0) % Urine Protein (Negative) Urine Glucose (UA) (Negative) Urine Ketones (Negative) Urine Blood (Negative) Ur Leukocyte Esterase (Negative) Urine WBC (0-5) /hpf Urine Bacteria (None) /hpf Urine Mucus (None) /hpf 05/15/24 05/15/24 05/15/24 Range/Units 08:08 08:08 08:08 RBC 3.20 L (4.30-5.90) m/uL Hgb 9.8 L (13.0-17.5) gm/dL Hct 29.7 L (39.0-53.0) % Sodium 134 L (137-145) mmol/L Glucose 161 H (74-99) mg/dL POC Glucose (mg/dL) (70-110) mg/dL Hemoglobin A1c 7.1 H (<=6.0) % Urine Protein (Negative) Urine Glucose (UA) (Negative) Urine Ketones (Negative) Urine Blood (Negative) Ur Leukocyte Esterase (Negative) Urine WBC (0-5) /hpf Urine Bacteria (None) /hpf Urine Mucus (None) /hpf 05/15/24 05/15/24 Range/Units 11:03 11:20 RBC (4.30-5.90) m/uL Hgb (13.0-17.5) gm/dL Hct (39.0-53.0) % Sodium (137-145) mmol/L Glucose (74-99) mg/dL POC Glucose (mg/dL) 232 H (70-110) mg/dL Hemoglobin A1c (<=6.0) % Urine Protein Trace H (Negative) Urine Glucose (UA) Trace H (Negative) Urine Ketones 2+ H (Negative) Urine Blood Small H (Negative) Ur Leukocyte Esterase Moderate H (Negative) Urine WBC 37 H (0-5) /hpf Urine Bacteria Rare H (None) /hpf Urine Mucus Rare H (None) /hpf Assessment and Plan Time with Patient: Less than 30
--- NOTE | 2024-05-15 15:59 | US ---
EXAMINATION TYPE: US carotid duplex BILAT DATE OF EXAM: 05/15/2024 Exam done portable COMPARISON: NONE CLINICAL INDICATION: Male, 78 years old with history of stroke; TECHNIQUE: Grayscale, color Doppler and spectral Doppler evaluation of the bilateral carotid systems and vertebral arteries. Indirect Doppler criteria was utilized. FINDINGS: EXAM MEASUREMENTS: RIGHT: Peak Systolic Velocity (PSV) cm/sec ----- Right CCA: 58.1 ----- Right ICA: 115.1 ----- Right ECA: 78.4 ICA/CCA ratio: 2.0 RIGHT: End Diastole cm/sec ----- Right CCA: 6.6 ----- Right ICA: 14.6 ----- Right ECA: 12.0 LEFT: Peak Systolic Velocity (PSV) cm/sec ----- Left CCA: 96.4 ----- Left ICA: 112.5 ----- Left ECA: 112.3 ICA/CCA ratio: 1.2 LEFT: End Diastole cm/sec ----- Left CCA: 14.4 ----- Left ICA: 20.0 ----- Left ECA: 8.8 VERTEBRALS (direction of flow): Right Vertebral: Antegrade Left Vertebral: Antegrade Rhythm: Normal IMPRESSION: Right: No hemodynamically significant stenosis. Left: No hemodynamically significant stenosis. Criteria for Assigning % of Stenosis / Diameter reduction (Estimation based on the indirect measurements of the internal carotid artery velocities (ICA PSV). 1. Normal (no stenosis)=ICA PSV < 125 cm/s: ratio < 2.0: ICA EDV<40 cm/s. 2. Less than 50% stenosis=ICA PSV < 125 cm/s: ratio < 2.0: ICA EDV<40 cm/s. 3. 50 to 69% stenosis=ICA PSV of 125 to 230 cm/s: ration 2.0 ? 4.0: ICA EDV 40-100 cm/s. 4. Greater than 70% stenosis to near occlusion= ICA PSV > 230 cm/s: ratio > 4.0: ICA EDV > 100 cm/s. 5. Near occlusion= ICA PSV velocities may be low or undetectable: variable ratio and ICA EDV. 6. Total occlusion=unable to detect flow. [facility], , 05/15/2024 3:57 PM
[2024-05-15 16:30] LABS: Glucose,Whole Blood 130 mg/dL (70-110)
[2024-05-15] MEDS: ASPIRIN 81 MG PO SCH (16:34)
[2024-05-15 20:41] LABS: Glucose,Whole Blood 193 mg/dL (70-110)
[2024-05-15] MEDS: QUEtiapine 25 MG TAB PO PRN (21:14)
[2024-05-16 06:07] LABS: Glucose,Whole Blood 135 mg/dL (70-110)
[2024-05-16 06:53] LABS: HCT 28.7 % (39.0-53.0); HGB 9.6 gm/dL (13.0-17.5); MCH 30.7 pg (25.0-35.0); MCHC 33.4 g/dL (31.0-37.0); Mean Platelet Volume 7.7; Platelet Count 262 k/uL (150-450); RBC 3.12 m/uL (4.30-5.90); RDW 13.6 % (11.5-15.5)
[2024-05-16 07:13] LABS: African American GFR (CKD) 78 (>60 ml/min/1.73 sqM); Anion Gap 8 mmol/L; Blood Urea Nitrogen 8 mg/dL (9-20); Calcium 8.8 mg/dL (8.4-10.2); Carbon Dioxide 22 mmol/L (22-30); Chloride 108 mmol/L (98-107); Glucose 144 mg/dL (74-99); Non-African American GFR(CKD) 68 (>60 ml/min/1.73 sqM); Potassium 3.6 mmol/L (3.5-5.1); Sodium 138 mmol/L (137-145)
[2024-05-16] MEDS: ATORVASTATIN 20 MG TAB PO SCH (08:25)
[2024-05-16 11:50] LABS: Glucose,Whole Blood 243 mg/dL (70-110)
--- NOTE | 2024-05-16 14:29 | P.CNNES ---
History of Present Illness Consult date: 05/16/24 Requesting physician: Soco Hagan Reason for Consult: Left leg heaviness, weakness on admit. Brain CT +stroke History of Present Illness: This is a 78-year-old gentleman who presented emergency department because of left leg weakness and then felt generalized weakness. Patient is at bedside who provides some of the history. Seems about a week ago the stated that he had left leg was heavy and he could hardly walk. Then she stated that she felt that his whole body was weak. Patient denies of any low back pain. Denies any history of stroke. He is not on any antiplatelet. Denies of any history of atrial fibrillation. He vapes. He does have underlying history of hypertension diabetes hypercholesteremia. During this hospital visit patient was found to have acute urinary tract infection and he is on antibiotic and his symptoms has resolved. He feels he is drastically better. Denies of any numbness any visual disturbance any speech difficulty. Again he feels back to baseline. He does have underlying chronic indwelling Rowe catheter. He has history of prostate cancer. Some of the workup during this hospital visit consisted of: Hemoglobin A1c 7.1 Urine analysis seems suggestive of acute urinary tract infection CT of the head is reported as clifton-white matter loss differentiation in the right frontal lobe near the skull base and and right parietal occipital lobe correlate for micro infarct. Consider MRI of the brain for confirmation. Personally reviewed the CT and it was hard to assess for any acute ischemic stroke that seems moderate or large. Carotid duplex is reported as no hemodynamic significant stenosis over the right or left. 2D echo was reported as normal left ventricular size systolic function. Mild mitral aortic and tricuspid regurgitation with no evidence of pulmonary hypertension. Review of Systems As per HPI. Past Medical History Past Medical History: Cancer, Dementia, Diabetes Mellitus, Prostate Disorder Additional Past Medical History / Comment(s): prostate cancer, chronic rowe History of Any Multi-Drug Resistant Organisms: None Reported Past Surgical History: No Surgical Hx Reported Past Anesthesia/Blood Transfusion Reactions: No Reported Reaction Smoking Status: Vaper Past Alcohol Use History: None Reported Past Drug Use History: None Reported Medications and Allergies Home Medications Medication Instructions Recorded Confirmed Type Donepezil [Aricept] 5 mg PO HS 03/18/23 05/13/24 History Ferrous Sulfate [Iron (65 MG 325 mg PO HS 03/18/23 05/13/24 History Elemental)] Levothyroxine Sodium [Synthroid] 50 mcg PO DAILY 03/18/23 05/13/24 History glipiZIDE 2.5 mg PO HS 03/18/23 05/13/24 History metFORMIN HCL 1,000 mg PO BID 03/18/23 05/13/24 History Nitrofurantoin Monohyd/M-Cryst 100 mg PO BID 05/13/24 05/13/24 History [Macrobid] Tamsulosin [Flomax] 0.4 mg PO DAILY 05/13/24 05/13/24 History glipiZIDE [Glucotrol] 5 mg PO DAILY 05/13/24 05/13/24 History lisinopriL 40 mg PO DAILY 05/13/24 05/13/24 History Allergies Allergy/AdvReac Type Severity Reaction Status Date / Time No Known Allergies Allergy Verified 05/13/24 14:35 Physical Examination - Vital Signs Vital Signs: Vital Signs Temp Pulse Pulse Resp BP BP Pulse Ox 05/16/24 12:00 98.8 F 73 16 138/74 99 05/16/24 08:00 98.3 F 69 16 168/66 98 05/16/24 04:28 97.4 F L 79 16 180/82 178/76 95 05/15/24 23:00 98.4 F 62 16 159/75 99 05/15/24 20:55 98.3 F 76 16 152/69 98 05/15/24 15:31 98.3 F 68 16 136/70 98 Intake and Output 05/15/24 05/16/24 05/16/24 22:59 06:59 14:59 Intake Total 118 750 515 Output Total 300 800 Balance -182 -50 515 Intake: Intake, IV Titration 750 Amount Sodium Chloride 0.9% 1, 750 000 ml @ 75 mls/hr IV . [id number] [facility] Rx#:[id number] Oral 118 515 Output: Urine 300 800 Other: Voiding Method Indwelling Catheter Indwelling Catheter Indwelling Catheter # Bowel Movements 2 Weight 67.5 kg GENERAL: The patient is sitting in a recliner chair and is not in acute distress. NEUROLOGICAL: Higher mental function: The patient is awake, alert, oriented to self, place and time. Patient is following commands. No aphasia and no neglect. Cranial nerves: The pupils are round, equal and reactive to light and accommodation. Visual tong are full to confrontation throughout. Extraocular movement is intact no nystagmus is noted. Facial sensation is normal to touch throughout. The facial strength is normal throughout. Hearing is severely decreased bilaterally to hand rub. Tongue is midline and moved [id number] without any difficulty. No dysarthria is noted. Shoulder shrug is normal bilaterally. Motor: The strength is right upper extremity was somewhat limited because of old shoulder issues but had at least 4+. Otherwise 5 over 5 throughout. Normal tone and bulk. Cerebellum: Normal finger to nose bilaterally. Sensation: Sensation is normal to touch throughout. Reflexes (right/left): 2+ Plantars are downgoing bilaterally. Results - Laboratory Findings CBC and BMP: 05/16/24 06:25 05/16/24 06:25 Abnormal Lab Findings: Abnormal Labs 05/13/24 05/13/24 05/13/24 12:16 12:16 12:16 RBC 3.41 L Hgb 10.4 L Hct 31.7 L Lymphocytes # 0.8 L APTT 19.3 L Sodium 134 L Chloride BUN Glucose 142 H POC Glucose (mg/dL) Hemoglobin A1c Phosphorus 5.2 H Magnesium 1.5 L Troponin I Urine Protein Urine Glucose (UA) Urine Ketones Urine Blood Ur Leukocyte Esterase Urine RBC Urine WBC Urine WBC Clumps Uric Acid Crystals Urine Bacteria Urine Mucus 05/13/24 05/13/24 05/13/24 12:16 13:29 15:01 RBC Hgb Hct Lymphocytes # APTT Sodium Chloride BUN Glucose POC Glucose (mg/dL) Hemoglobin A1c Phosphorus Magnesium Troponin I 0.113 H* 0.126 H* Urine Protein 1+ H Urine Glucose (UA) Urine Ketones 1+ H Urine Blood Ur Leukocyte Esterase Large H Urine RBC 14 H Urine WBC >182 H Urine WBC Clumps Occasional H Uric Acid Crystals Many H Urine Bacteria Rare H Urine Mucus Rare H 05/13/24 05/14/24 05/14/24 17:36 05:52 05:52 RBC 3.00 L Hgb 9.4 L Hct 28.0 L Lymphocytes # APTT Sodium 136 L Chloride BUN Glucose 128 H POC Glucose (mg/dL) Hemoglobin A1c Phosphorus Magnesium Troponin I 0.123 H* Urine Protein Urine Glucose (UA) Urine Ketones Urine Blood Ur Leukocyte Esterase Urine RBC Urine WBC Urine WBC Clumps Uric Acid Crystals Urine Bacteria Urine Mucus 05/14/24 05/14/2424 12:29 16:17 20:20 RBC Hgb Hct Lymphocytes # APTT Sodium Chloride BUN Glucose POC Glucose (mg/dL) 150 H 172 H 152 H Hemoglobin A1c Phosphorus Magnesium Troponin I Urine Protein Urine Glucose (UA) Urine Ketones Urine Blood Ur Leukocyte Esterase Urine RBC Urine WBC Urine WBC Clumps Uric Acid Crystals Urine Bacteria Urine Mucus 05/15/24 05/15/24 05/15/24 06:05 08:08 08:08 RBC 3.20 L Hgb 9.8 L Hct 29.7 L Lymphocytes # APTT Sodium Chloride BUN Glucose POC Glucose (mg/dL) 150 H Hemoglobin A1c 7.1 H Phosphorus Magnesium Troponin I Urine Protein Urine Glucose (UA) Urine Ketones Urine Blood Ur Leukocyte Esterase Urine RBC Urine WBC Urine WBC Clumps Uric Acid Crystals Urine Bacteria Urine Mucus 05/15/24 05/15/24 05/15/24 08:08 11:03 11:20 RBC Hgb Hct Lymphocytes # APTT Sodium 134 L Chloride BUN Glucose 161 H POC Glucose (mg/dL) 232 H Hemoglobin A1c Phosphorus Magnesium Troponin I Urine Protein Trace H Urine Glucose (UA) Trace H Urine Ketones 2+ H Urine Blood Small H Ur Leukocyte Esterase Moderate H Urine RBC Urine WBC 37 H Urine WBC Clumps Uric Acid Crystals Urine Bacteria Rare H Urine Mucus Rare H 05/15/24 05/15/24 05/16/24 16:28 20:40 06:05 RBC Hgb Hct Lymphocytes # APTT Sodium Chloride BUN Glucose POC Glucose (mg/dL) 130 H 193 H 135 H Hemoglobin A1c Phosphorus Magnesium Troponin I Urine Protein Urine Glucose (UA) Urine Ketones Urine Blood Ur Leukocyte Esterase Urine RBC Urine WBC Urine WBC Clumps Uric Acid Crystals Urine Bacteria Urine Mucus 05/16/24 05/16/24 05/16/24 06:25 06:25 11:49 RBC 3.12 L Hgb 9.6 L Hct 28.7 L Lymphocytes # APTT Sodium Chloride 108 H BUN 8 L Glucose 144 H POC Glucose (mg/dL) 243 H Hemoglobin A1c Phosphorus Magnesium Troponin I Urine Protein Urine Glucose (UA) Urine Ketones Urine Blood Ur Leukocyte Esterase Urine RBC Urine WBC Urine WBC Clumps Uric Acid Crystals Urine Bacteria Urine Mucus Assessment and Plan Assessment: This is a 78-year-old gentleman who presents to the emergency department because of left leg heaviness weakness about a week ago then had generalized weakness. In our facility was found to have acute urinary tract infection and he is on antibiotic and his symptoms has resolved. CT of the head shows suspicious for micro infarct over the right frontal parietal occipital lobe. Acute transient left leg weakness/heaviness with generalized weakness and there is a concern for stroke over the right frontal parietal occipital lobe on the CT. If MRI of the brain is unremarkable for any acute or subacute stroke then likely patient's symptoms is due to the acute urinary tract infection. Urinary tract infection Diabetes mellitus Chronic indwelling Rowe catheter Hypertension Hypercholesteremia Plan: MRI of the brain is ordered and is pending Lipid panel is ordered and is pending Was placed on aspirin 81 mg daily. Prior to this the patient was not on any antiplatelet. If he does have a stroke we will recommend dual antiplatelets of aspirin 81 mg and Plavix 75 mg for 21 days and after 21 days stop Plavix but continue aspirin indefinitely. Patient is on Lipitor 20 mg daily. Continue neurochecks Cardiac monitoring Physical therapy and Occupational Therapy is consulted Will defer the rest of the medical management to primary and other specialist For DVT prophylaxis : Is on Lovenox Plan discussed with the patient, his was at bedside and primary team nurse practitioner Thank you for the consultation. Time with Patient: Greater than 30
[2024-05-16 16:40] LABS: Glucose,Whole Blood 215 mg/dL (70-110)
--- NOTE | 2024-05-16 16:45 | MR ---
EXAMINATION TYPE: MR brain wo con DATE OF EXAM: 05/16/2024 3:56 PM COMPARISON: 05/15/2024. CLINICAL INDICATION: Male, 78 years old with history of concern for microinfarct; PHH, Concern for mi croinfarct left leg weakness. TECHNIQUE: Multi planar, multi sequence imaging was performed through the brain including: T1, T2, In version recovery, Diffusion weighted imaging, and gradient echo imaging. No gadolinium was given. FINDINGS: Restricted diffusion scattered along the watershed region of the STEFANI and right MCA and the right frontal lobe with scattered microinfarcts some of which create confluent areas. There is associ ated high DWI and low ADC signal. Remote injuries scattered white matter changes in the bilateral fro ntal lobes also present on FLAIR imaging. The more anterior areas correlate with area on CT near the Skull vertex. More posteriorly this is felt to relate to chronic appearing injury in the right pariet al/occipital region. The clifton-white junctions, ventricular system, basal cisterns appear unremarkable. Midline structure s show no abnormality. The susceptibility weighted images do not reveal any evidence for micro-hemorr jose m. The bone marrow signal is within normal limits. Paranasal sinuses and mastoid air cells: No significant paranasal sinus disease. Visualized orbits: Orbital contents are intact. IMPRESSION: 1. Acute/subacute CVA involving the right frontal lobe watershed region between the MCA and STEFANI samy tory. This correlates with finding near the skull vertex on CT imaging. The other area in the right p arietal/occipital lobe area appears chronic and correlates with the other area and on CT. 2. Nonspecific white matter changes, likely secondary to small vessel ischemic disease. [facility], , 05/16/2024 4:42 PM
[2024-05-16] MEDS: CLOPIDOGREL 75 MG TAB PO SCH (18:07)
[2024-05-16 20:31] LABS: Glucose,Whole Blood 266 mg/dL (70-110)
[2024-05-16 21:35] LABS: Chol/HDL Ratio 5.16 Ratio; LDL Cholesterol,Calculated 167.1 mg/dL (0.0-131.0)
--- NOTE | 2024-05-16 21:55 | P.PN ---
Subjective Progress Note Date: 05/16/24 Patient is a 78 year old male with past medical history of dementia, diabetes mellitus, hypothyroidism, hypertension, prostate cancer with a chronic indwelling catheter presented to the ED with generalized weakness. The patient is confused and a poor historian. He only answers to yes or no questions about the Review of systems. No family at bedside to provide additional history. ED documentation reviewed. He does mention having dysuria but doesn't know about the onset of symptoms. Denies having hematuria, lower abdominal pain, fever, chills. He also reports having tingling in the finger of his right hand. Denies shortness of breath, cough, abdominal pain, nausea, vomiting, diaphoresis, hematuria, hematochezia, melena, numbness, headache, slurring of speech. In the ED patient was treated with ceftriaxone, diltiazem drip, magnesium oxide, magnesium sulfate, 0.9 normal saline Vitals on admission T 98.4 F, [place] 122, RR 18, BP 116/64, O2 sat 97% on room air EKG independently interpreted as atrial flutter, rate 114 bpm, QTc 392 ms Chest xray shows no acute cardiopulmonary disease/process Abdomen and Pelvis CT shows no CT evidence of acute abdominal/pelvic process within limitations of a noncontrast exam Labs on admission show hemoglobin 10.4 APTT 19.3, sodium 134, phosphorus 5.2, magnesium 1.5, lactic acid 2.0, proBNP 152 Troponin I 0.113, 0.126, 0.123 UA shows 1+ protein, 1+ ketones, large leukocyte esterase, 14 RBC, more than 182 WBC, occasional WBC clumps, many acid crystals, rare bacteria and rare mucus 05/15/2024 Patient is evaluated today in follow up on the medical floor. His main complaint on admission was left leg heaviness and weakness with difficulty ambulating and feeling fatigued. Since admission the weakness in his left leg has improved. He had an x-ray of the hip which reveals no evidence for acute process and mild hip osteoarthritis. His echocardiogram reveals a normal LV size and systolic function with mild mitral aortic and tricuspid regurgitation with no evidence of pulmonary hypertension. He is continued on IV ceftriaxone with concern for urinary tract infection. It does not appear that a urine culture has been sent. His indwelling Mccord catheter was changed out in the ER we did repeat a urinalysis today after that was done and there is improvement in the UA. A urine culture was sent today. A brain CT was ordered to rule out acute stroke. 05/16/2024 Patients urine culture has come back negative. He had already been started on IV ceftriaxone prior to the urine culture. Neurology has evaluated the patient. Carotid doppler negative for any stenosis. Lipid panel comes back triglycerides 152, cholesterol 245, LDL 167.1. B12 and Folate WNL. His brain MRI does reveal an acute/subacute CVA involving the left frontal lobe watershed region between the MCA and STEFANI territor. This correlates with finding near the skull vertex on CT imaging. The other area in the right parietal/occipital lobe area appears chronic and correlates to the other area on the CT. There are nonspecific white matter changes likely secondary to small vessel ischemic disease. Review of Systems Constitutional: Denied any fatigue denied any fever. Cardio vascular: denied any chest pain, palpitations Gastrointestinal: denied any nausea, vomiting, diarrhea Pulmonary: Denied any shortness of breath cough Neurologic denied any new focal deficits All inpatient medications were reviewed and appropriate changes in these medications as dictated in the interval history and assessment and plan. PHYSICAL EXAMINATION: GENERAL: The patient is alert and oriented x3, not in any acute distress. Well developed, well nourished. HEENT: Pupils are round and equally reacting to light. EOMI. No scleral icterus. No conjunctival pallor. Normocephalic, atraumatic. No pharyngeal erythema. No thyromegaly. CARDIOVASCULAR: S1 and S2 present. No murmurs, rubs, or gallops. PULMONARY: Chest is clear to auscultation, no wheezing or crackles. ABDOMEN: Soft, nontender, nondistended, normoactive bowel sounds. No palpable organomegaly. MUSCULOSKELETAL: No joint swelling or deformity. EXTREMITIES: No cyanosis, clubbing, or pedal edema. NEUROLOGICAL: Gross neurological examination did not reveal any focal deficits. SKIN: No rashes. Assessment and plan Left leg heaviness and weakness brain MRI reveals an acute/subacute infarct of the right frontal lobe watershed region between the MCA and STEFANI territor Old stroke near the right parietal/occipital area. Acute urinary tract infections this is a catheter associated UTI indwelling Mccord catheter was changed, urine culture negative. Sinus tachycardia and hypertension started on metoprolol History of dementia maintained on donepezil Hypertension Hypothyroidism Chronic indwelling Mccord catheter Troponin elevation secondary to type II [place] from infection Diabetes mellitus type 2 Prostate cancer GI prophylaxis DVT prophylaxis Code Urine culture negative. Continues on IV ceftriaxone ID following. Will DC home tomorrow with oral antibiotics Start the patient oral metoprolol and continue cardiac telemetry Continue DAPT with aspirin and plavix for 21 days due to the acute/subacute infarct on brain MRI. After 21 days can stop the plavix and continue aspirin Lipitor increased to 40 mg daily. Lipid panel abnormal Physical therapy and Occupational Therapy are consulted for evaluation and recommending home with home care The work up has been completed all testing results are back Patient will discharge home tomorrow and recommend an event monitor to rule out any underlying cardiac arrhythmia. The impression and plan of care has been dictated by Soco Hagan, Nurse Practitioner as directed. Dr. Jany MD I have performed a history and physical examination and medical decision making of this patient, discussed the same with the dictator, and agree with the dictators assessment and plan as written, documented as a scribe. Based on total visit time, I have performed more than 50% of this visit. Objective - Vital Signs Vital signs: Vital Signs Temp 98 F 05/16/24 20:00 Pulse 74 05/16/24 20:00 Resp 20 05/16/24 20:00 BP 145/55 05/16/24 20:00 Pulse Ox 99 05/16/24 20:00 FiO2 Intake & Output 05/16/24 05/16/24 05/17/24 06:59 18:59 06:59 Intake Total 750 665 Output Total 800 300 Balance -50 665 -300 Weight 67.5 kg Intake: Intake, IV Titration 750 Amount Sodium Chloride 0.9% 1, 750 000 ml @ 75 mls/hr IV . [id number] [facility] Rx#:[id number] Oral 665 Output: Urine 800 300 Other: Voiding Method Indwelling Catheter Indwelling Catheter Indwelling Catheter # Bowel Movements 2 - Labs CBC & Chem 7: 05/16/24 06:25 05/16/24 06:25 Labs: Abnormal Lab Results - Last 24 Hours (Table) 05/16/24 05/16/24 05/16/24 Range/Units 06:05 06:25 06:25 RBC 3.12 L (4.30-5.90) m/uL Hgb 9.6 L (13.0-17.5) gm/dL Hct 28.7 L (39.0-53.0) % Chloride 108 H (98-107) mmol/L BUN 8 L (9-20) mg/dL Glucose 144 H (74-99) mg/dL POC Glucose (mg/dL) 135 H (70-110) mg/dL Triglycerides 152.00 H (0.00-149.00) mg/dL Cholesterol 245.00 H (0.00-200.00) mg/dL LDL Cholesterol, Calc 167.1 H (0.0-131.0) mg/dL 05/16/24 05/16/24 05/16/24 Range/Units 11:49 16:39 20:29 RBC (4.30-5.90) m/uL Hgb (13.0-17.5) gm/dL Hct (39.0-53.0) % Chloride (98-107) mmol/L BUN (9-20) mg/dL Glucose (74-99) mg/dL POC Glucose (mg/dL) 243 H 215 H 266 H (70-110) mg/dL Triglycerides (0.00-149.00) mg/dL Cholesterol (0.00-200.00) mg/dL LDL Cholesterol, Calc (0.0-131.0) mg/dL Microbiology - Last 24 Hours (Table) 05/15/24 11:03 Urine Culture - Final Urine,Voided Assessment and Plan Time with Patient: Less than 30
[2024-05-17 06:10] LABS: Glucose,Whole Blood 183 mg/dL (70-110)
[2024-05-17 08:26] VITALS: TEMP 98
[2024-05-17] MEDS: ATORVASTATIN 40 MG TAB PO SCH (08:27)
--- NOTE | 2024-05-17 08:28 | P.PN ---
Subjective Progress Note Date: 05/16/24 Principal diagnosis: Reason for follow-up is catheter associated UTI Patient is a 78-year-old male with a past medical history significant for diabetes mellitus prostate cancer patient did have a chronic indwelling Mccord catheter was brought to the hospital complaining of weakness pain to the left leg patient did have a positive UA concerning for catheter associated UTI prompted this consultation. On today's evaluation that is 05/16/2024, patient has been afebrile, patient is breathing comfortably and is currently on room air, patient denies having any significant cough no chest pain, patient denies nausea vomiting or diarrhea and no abdominal pain did have more mobility to the left lower extremity and no pain. The patient white count is 5.0, creatinine 1.06 urine cultures currently pending Objective - Vital Signs Vital signs: Vital Signs Temp 97.4 F L 05/16/24 04:28 Pulse 79 05/16/24 04:28 Resp 16 05/16/24 04:28 BP 180/82 05/16/24 04:28 Pulse Ox 95 05/16/24 04:28 FiO2 Intake & Output 05/15/24 05/16/24 05/16/24 18:59 06:59 18:59 Intake Total 368 750 Output Total 300 800 Balance 68 -50 Weight 67.5 kg Intake: IV 10 Invasive Line 3 10 Intake, IV Titration 750 Amount Sodium Chloride 0.9% 1, 750 000 ml @ 75 mls/hr IV . [id number] [facility] Rx#:[id number] Oral 358 Output: Urine 300 800 Other: Voiding Method Indwelling Catheter Indwelling Catheter # Bowel Movements 1 - Exam GENERAL DESCRIPTION: An elderly male lying in bed in no distress RESPIRATORY SYSTEM: Unlabored breathing , decreased breath sounds at bases HEART: S1 S2 regular rate and rhythm , ABDOMEN: Soft , no tenderness EXTREMITIES: No edema feet - Labs CBC & Chem 7: 05/16/24 06:25 05/16/24 06:25 Labs: Abnormal Lab Results - Last 24 Hours (Table) 05/15/24 05/15/24 05/15/24 Range/Units 08:08 11:03 11:20 RBC (4.30-5.90) m/uL Hgb (13.0-17.5) gm/dL Hct (39.0-53.0) % Chloride (98-107) mmol/L BUN (9-20) mg/dL Glucose (74-99) mg/dL POC Glucose (mg/dL) 232 H (70-110) mg/dL Hemoglobin A1c 7.1 H (<=6.0) % Urine Protein Trace H (Negative) Urine Glucose (UA) Trace H (Negative) Urine Ketones 2+ H (Negative) Urine Blood Small H (Negative) Ur Leukocyte Esterase Moderate H (Negative) Urine WBC 37 H (0-5) /hpf Urine Bacteria Rare H (None) /hpf Urine Mucus Rare H (None) /hpf 05/15/24 05/15/24 05/16/24 Range/Units 16:28 20:40 06:05 RBC (4.30-5.90) m/uL Hgb (13.0-17.5) gm/dL Hct (39.0-53.0) % Chloride (98-107) mmol/L BUN (9-20) mg/dL Glucose (74-99) mg/dL POC Glucose (mg/dL) 130 H 193 H 135 H (70-110) mg/dL Hemoglobin A1c (<=6.0) % Urine Protein (Negative) Urine Glucose (UA) (Negative) Urine Ketones (Negative) Urine Blood (Negative) Ur Leukocyte Esterase (Negative) Urine WBC (0-5) /hpf Urine Bacteria (None) /hpf Urine Mucus (None) /hpf 05/16/24 05/16/24 Range/Units 06:25 06:25 RBC 3.12 L (4.30-5.90) m/uL Hgb 9.6 L (13.0-17.5) gm/dL Hct 28.7 L (39.0-53.0) % Chloride 108 H (98-107) mmol/L BUN 8 L (9-20) mg/dL Glucose 144 H (74-99) mg/dL POC Glucose (mg/dL) (70-110) mg/dL Hemoglobin A1c (<=6.0) % Urine Protein (Negative) Urine Glucose (UA) (Negative) Urine Ketones (Negative) Urine Blood (Negative) Ur Leukocyte Esterase (Negative) Urine WBC (0-5) /hpf Urine Bacteria (None) /hpf Urine Mucus (None) /hpf Assessment and Plan (1) Urinary tract infection Current Visit: Yes Status: Acute Code(s): N39.0 - URINARY TRACT INFECTION, SITE NOT SPECIFIED SNOMED Code(s): 67021648 Plan: 1patient presented to hospital with mostly pain to the left hip along with generalized weakness some suprapubic discomfort significantly all evening concerning for catheter assisted UTI failing outpatient oral Macrobid therapy 2-the patient Mccord catheter has been changed CT did not show any hydronephrosis or renal stone 3-X-rays of the spine done at [facility] on 05/09/2024 results were read from [facility] system did shows hypertrophic facet arthropathy throughout with degenerative grade 1 retrolisthesis L2-L3 no vertebral compression collapse 4-patient did have some clinical improvement, will be treated Rocephin 2 g daily while waiting for the culture to finalize to determine his discharge antibiotics at the bedside multiple question concern answered Dictation was produced using [employer] dictation software. please excuse any grammatical, word or spelling errors.
[2024-05-17 11:46] LABS: Glucose,Whole Blood 226 mg/dL (70-110)
[2024-05-17 12:29] VITALS: BP 165/79; PULSE 66; RESP 16
--- NOTE | 2024-05-17 13:11 | P.PN ---
Subjective Progress Note Date: 05/17/24 Principal diagnosis: Reason for follow-up is catheter associated UTI Patient is a 78-year-old male with a past medical history significant for diabetes mellitus prostate cancer patient did have a chronic indwelling Mccord catheter was brought to the hospital complaining of weakness pain to the left leg patient did have a positive UA concerning for catheter associated UTI prompted this consultation. On today's evaluation that is 05/17/2024, Patient is afebrile this morning patient denies having any chest pain shortness of breath or cough, the patient is currently on room air, patient denies any abdominal pain no diarrhea no nausea no vomiting, mention feeling better wants to go home. No new lab has been obtained today urine cultures came back negative Objective - Vital Signs Vital signs: Vital Signs Temp 98 F 05/17/24 08:25 Pulse 66 05/17/24 12:28 Resp 16 05/17/24 12:28 BP 165/79 05/17/24 12:28 Pulse Ox 97 05/17/24 12:28 FiO2 Intake & Output 05/16/24 05/17/24 05/17/24 18:59 06:59 18:59 Intake Total 665 Output Total 650 Balance 665 -650 Weight 68.5 kg Intake: Oral 665 Output: Urine 650 Other: Voiding Method Indwelling Catheter Indwelling Catheter Indwelling Catheter # Bowel Movements 2 1 - Exam GENERAL DESCRIPTION: An elderly male lying in bed in no distress RESPIRATORY SYSTEM: Unlabored breathing , decreased breath sounds at bases HEART: S1 S2 regular rate and rhythm , ABDOMEN: Soft , no tenderness EXTREMITIES: No edema feet - Labs CBC & Chem 7: 05/16/24 06:25 05/16/24 06:25 Labs: Abnormal Lab Results - Last 24 Hours (Table) 05/16/24 05/16/24 05/16/24 Range/Units 06:25 16:39 20:29 POC Glucose (mg/dL) 215 H 266 H (70-110) mg/dL Triglycerides 152.00 H (0.00-149.00) mg/dL Cholesterol 245.00 H (0.00-200.00) mg/dL LDL Cholesterol, Calc 167.1 H (0.0-131.0) mg/dL 05/17/24 05/17/24 Range/Units 06:08 11:44 POC Glucose (mg/dL) 183 H 226 H (70-110) mg/dL Triglycerides (0.00-149.00) mg/dL Cholesterol (0.00-200.00) mg/dL LDL Cholesterol, Calc (0.0-131.0) mg/dL Microbiology - Last 24 Hours (Table) 05/15/24 11:03 Urine Culture - Final Urine,Voided Assessment and Plan (1) Urinary tract infection Current Visit: Yes Status: Acute Code(s): N39.0 - URINARY TRACT INFECTION, SITE NOT SPECIFIED SNOMED Code(s): 07665731 Plan: 1patient presented to hospital with mostly pain to the left hip along with generalized weakness some suprapubic discomfort significantly all evening concerning for catheter assisted UTI failing outpatient oral Macrobid therapy 2-the patient Mccord catheter has been changed CT did not show any hydronephrosis or renal stone 3-X-rays of the spine done at [facility] on 05/09/2024 results were read from [facility] system did shows hypertrophic facet arthropathy throughout with degenerative grade 1 retrolisthesis L2-L3 no vertebral compression collapse 4-patient did have some clinical improvement, urine culture negative as they were collected after the patient has received antibiotic in view of clinical improvement he will finish therapy with oral Ceftin x 5 days on discharge at the bedside multiple question concern answered Dictation was produced using [employer] dictation software. please excuse any grammatical, word or spelling errors.
--- NOTE | 2024-05-17 14:48 | P.PN ---
Subjective Progress Note Date: 05/17/24 I am following up with the patient and the patient had MRI of the brain which revealed stroke over the right hemisphere. Patient does not have any new focal deficit. He feels he is back to baseline. He is getting more anxious and wants to leave home according to his . Objective - Vital Signs Vital signs: Vital Signs Temp 98 F 05/17/24 08:25 Pulse 66 05/17/24 12:28 Resp 16 05/17/24 12:28 BP 165/79 05/17/24 12:28 Pulse Ox 97 05/17/24 12:28 FiO2 Intake & Output 05/16/24 05/17/24 05/17/24 18:59 06:59 18:59 Intake Total 665 Output Total 650 Balance 665 -650 Weight 68.5 kg Intake: Oral 665 Output: Urine 650 Other: Voiding Method Indwelling Catheter Indwelling Catheter Indwelling Catheter # Bowel Movements 2 1 - Exam GENERAL: The patient is sitting in a recliner chair and is not in acute distress. NEUROLOGICAL: Higher mental function: The patient is awake, alert, oriented to self, place and time. Patient is following commands. No aphasia and no neglect. Cranial nerves: The pupils are round, equal and reactive to light and accommodation. Visual tong are full to confrontation throughout. Extraocular movement is intact no nystagmus is noted. Facial sensation is normal to touch throughout. The facial strength is normal throughout. Hearing is severely decreased bilaterally to hand rub. Tongue is midline and moved [id number] without any difficulty. No dysarthria is noted. Shoulder shrug is normal bilaterally. Motor: The strength is right upper extremity was somewhat limited because of old shoulder issues but had at least 4+. Otherwise 5 over 5 throughout. Normal tone and bulk. Cerebellum: Normal finger to nose bilaterally. Sensation: Sensation is normal to touch throughout. Reflexes (right/left): 2+ Plantars are downgoing bilaterally. Some of the workup during this hospital visit consisted of: Hemoglobin A1c 7.1 Lipid panel is triglyceride 252, cholesterol 245, LDL is 167 and HDL is 47. Urine analysis seems suggestive of acute urinary tract infection CT of the head is reported as clifton-white matter loss differentiation in the right frontal lobe near the skull base and and right parietal occipital lobe correlate for micro infarct. Consider MRI of the brain for confirmation. Personally reviewed the CT and it was hard to assess for any acute ischemic stroke that seems moderate or large. Carotid duplex is reported as no hemodynamic significant stenosis over the right or left. 2D echo was reported as normal left ventricular size systolic function. Mild m itral aortic and tricuspid regurgitation with no evidence of pulmonary hypertension. MRI of the brain is reported as acute/subacute CVA involving the right frontal lobe watershed region between the MCA and the STEFANI territory. This correlates with the finding near the skull vertex on the CT imaging. The other area in the right parietal/occipital lobe appears chronic and correlate with the other area on the CT. - Labs CBC & Chem 7: 05/16/24 06:25 05/16/24 06:25 Labs: Abnormal Lab Results - Last 24 Hours (Table) 05/16/24 05/16/24 05/16/24 Range/Units 06:25 16:39 20:29 POC Glucose (mg/dL) 215 H 266 H (70-110) mg/dL Triglycerides 152.00 H (0.00-149.00) mg/dL Cholesterol 245.00 H (0.00-200.00) mg/dL LDL Cholesterol, Calc 167.1 H (0.0-131.0) mg/dL 05/17/24 05/17/24 Range/Units 06:08 11:44 POC Glucose (mg/dL) 183 H 226 H (70-110) mg/dL Triglycerides (0.00-149.00) mg/dL Cholesterol (0.00-200.00) mg/dL LDL Cholesterol, Calc (0.0-131.0) mg/dL Microbiology - Last 24 Hours (Table) 05/15/24 11:03 Urine Culture - Final Urine,Voided Assessment and Plan Assessment: This is a 78-year-old gentleman who presents to the emergency department because of left leg heaviness weakness about a week ago then had generalized weakness. In our facility was found to have acute urinary tract infection and he is on antibiotic and his symptoms has resolved. CT of the head shows suspicious for micro infarct over the right frontal parietal occipital lobe. Acute/subacute ischemic stroke over the right MCA/STEFANI territory on the MRI (watershed infarct) and has transient left lower extremity weakness. Unknown exact etiology. Urinary tract infection Diabetes mellitus Chronic indwelling Mccord catheter Hypertension Hypercholesteremia Plan: Was placed on aspirin 81 mg daily and Plavix 75mg daily. Prior to this the patient was not on any antiplatelet. Recommend dual antiplateletes for 21 days and after 21 days stop Plavix but continue aspirin indefinitely. Patient is on Lipitor 40 mg daily for secondary stroke prophylaxis and recommend LDL goal in stroke <70. Continue neurochecks Cardiac monitoring Physical therapy and Occupational Therapy is consulted Recommend an event monitor for 30 days. Will defer the rest of the medical management to primary and other specialist For DVT prophylaxis : Is on Lovenox On discharge recommend the patient follow-up with a neurologist as an outpatient within 2 weeks. Plan discussed with the patient, his was at bedside and primary team nurse practitioner There is no further neurological work-up. Time with Patient: Less than 30
--- NOTE | 2024-05-19 11:16 | P.DS ---
Providers Date of admission: 05/13/24 16:22 Attending physician: Lupe Cutler Consults: 05/14/24 12:49 Consult Physician Routine Consulting Provider: Beatris Ordaz Consult Reason/Comments: UTI Do you want consulting provider notified?: Yes 05/15/24 13:48 Consult Physician Routine Consulting Provider: Jong Gasca Consult Reason/Comments: Left leg heaviness, weakness on admit. Brain CT +stroke Do you want consulting provider notified?: Yes Primary care physician: Arben Neely MD Hospital Course: Final Diagnosis Left leg heaviness and weakness brain MRI reveals an acute/subacute infarct of the right frontal lobe watershed region between the MCA and STEFANI territor Old stroke near the right parietal/occipital area. Acute urinary tract infections this is a catheter associated UTI indwelling Rowe catheter was changed, urine culture negative. Sinus tachycardia and hypertension started on metoprolol History of dementia maintained on donepezil Hypertension Hypothyroidism Chronic indwelling Rowe catheter Troponin elevation secondary to type II AZ from infection Diabetes mellitus type 2 Prostate cancer Discharge Disposition Patient is stable for discharge home. He will continue dual antiplatelet therapy with aspirin and plavix therapy for 21 days and after the 21 days will stop the plavix and also continue on aspirin 81 mg daily along with lipitor 40 mg HS. Patient to establish with a neurologist on DC. Complete course of antibiotics with oral ceftin on discharge. Recommend an event monitor to rule out any underlying cardiac arrhythmia. Patient has also been started on metoprolol for rate control. Repeat blood work 2 to 3 days. Follow up with PCP Dr. Arben Neely in 1 to 2 days. Additional follows up include Dr Cheung with cardiology. He has been given information for neurologist in the area to follow up with. Hospital Course Patient is a 78 year old male with past medical history of dementia, diabetes mellitus, hypothyroidism, hypertension, prostate cancer with a chronic indwelling catheter presented to the ED with generalized weakness. The patient is confused and a poor historian on admit only answering yes/no questions. He does mention having dysuria but doesn't know about the onset of symptoms. Denies having hematuria, lower abdominal pain, fever, chills. He also reports having tingling in the finger of his right hand. and also left leg heaviness on admis jeramy. Denies shortness of breath, cough, abdominal pain, nausea, vomiting, diaphoresis, hematuria, hematochezia, melena, numbness, headache, slurring of speech. Abdomen and Pelvis CT shows no CT evidence of acute abdominal/pelvic process within limitations of a noncontrast exam. Chest xray shows no acute cardiopulmonary disease/process. Labs on admission show hemoglobin 10.4 APTT 19.3, sodium 134, phosphorus 5.2, magnesium 1.5, lactic acid 2.0, proBNP 152 Troponin I 0.113, 0.126, 0.123. UA shows 1+ protein, 1+ ketones, large leukocyte esterase, 14 RBC, more than 182 WBC, occasional WBC clumps, many acid crystals, rare bacteria and rare mucus. There is concern for atrial flutter on EKG. He has a chronic rowe which was changed out in the ER and sent for UA. A culture was not done initially. In the ED patient was treated with ceftriaxone, diltiazem drip, magnesium oxide, magnesium sulfate, 0.9 normal saline. Admitted to the hospital with cardiac consultation. EKG reviewed and felt to be no evidence of arrhythmia treated for the sinus tachycardia with beta maris and heart rate now controlled. Echocardiogram reveals a normal LV size and systolic function with mild mitral aortic and tricuspid regurgitation with no evidence of pulmonary hypertension. A brain CT was ordered to rule out acute stroke. Patients urine culture has come back negative. He had already been started on IV ceftriaxone prior to the urine culture. Neurology has evaluated the patient. Carotid doppler negative for any stenosis. Lipid panel comes back triglycerides 152, cholesterol 245, LDL 167.1. B12 and Folate WNL. His brain MRI does reveal an acute/subacute CVA involving the left frontal lobe watershed region between the MCA and STEFANI territor. This correlates with finding near the skull vertex on CT imaging. The other area in the right parietal/occipital lobe area appears chronic and correlates to the other area on the CT. There are nonspecific white matter changes likely secondary to small vessel ischemic disease. He had complete stroke work up.He has no acute complaints at this time. Please see medication reconciliation for a list of current medications. Thank you for allowing us to participate in the care of this patient. The impression and plan of care has been dictated by Soco Hagan, Nurse Practitioner as directed. Dr. Jany MD I have performed a history and physical examination and medical decision m and Steve of this patient, discussed the same with the dictator, and agree with the dictators assessment and plan as written, documented as a scribe. Based on total visit time, I have performed more than 50% of this visit. Patient Condition at Discharge: Stable Plan - Discharge Summary Discharge Rx Participant: No New Discharge Prescriptions: New Aspirin 81 mg PO DAILY #30 tab Atorvastatin [Lipitor] 40 mg PO DAILY #30 tab Metoprolol Tartrate [Lopressor] 25 mg PO BID #60 tab Clopidogrel [Plavix] 75 mg PO DAILY #21 tab Pantoprazole [Protonix] 40 mg PO AC-BRKFST #30 tab cefuroxime axetiL [Ceftin] 500 mg PO BID 5 Days #10 tab Continue Donepezil [Aricept] 5 mg PO HS glipiZIDE [Glucotrol] 5 mg PO DAILY lisinopriL 40 mg PO DAILY Tamsulosin [Flomax] 0.4 mg PO DAILY metFORMIN HCL 1,000 mg PO BID Levothyroxine Sodium [Synthroid] 50 mcg PO DAILY glipiZIDE 2.5 mg PO HS Ferrous Sulfate [Iron (65 MG Elemental)] 325 mg PO HS Discontinued Nitrofurantoin Monohyd/M-Cryst [Macrobid] 100 mg PO BID Discharge Medication List Donepezil [Aricept] 5 mg PO HS 03/18/23 [History] Ferrous Sulfate [Iron (65 MG Elemental)] 325 mg PO HS 03/18/23 [History] Levothyroxine Sodium [Synthroid] 50 mcg PO DAILY 03/18/23 [History] glipiZIDE 2.5 mg PO HS 03/18/23 [History] metFORMIN HCL 1,000 mg PO BID 03/18/23 [History] Tamsulosin [Flomax] 0.4 mg PO DAILY 05/13/24 [History] glipiZIDE [Glucotrol] 5 mg PO DAILY 05/13/24 [History] lisinopriL 40 mg PO DAILY 05/13/24 [History] Aspirin 81 mg PO DAILY #30 tab 05/17/24 [Rx] Atorvastatin [Lipitor] 40 mg PO DAILY #30 tab 05/17/24 [Rx] Clopidogrel [Plavix] 75 mg PO DAILY #21 tab 05/17/24 [Rx] Metoprolol Tartrate [Lopressor] 25 mg PO BID #60 tab 05/17/24 [Rx] Pantoprazole [Protonix] 40 mg PO AC-BRKFST #30 tab 05/17/24 [Rx] cefuroxime axetiL [Ceftin] 500 mg PO BID 5 Days #10 tab 05/17/24 [Rx] Follow up Appointment(s)/Referral(s): Nicole Cheung MD [STAFF PHYSICIAN] - 06/16/24 3:45 pm Ignacio Veliz MD [REFERRING] - 1 Week Arben Neely MD [Primary Care Provider] - 1-2 days Kwaku Sanches MD [Medical Doctor] - 1 Week Josafat Razo DO [STAFF PHYSICIAN] - 1 Week Ambulatory/Diagnostic Orders: Basic Metabolic Panel [LAB.AMB] Time Frame: 3 Days, Location: None Selected Complete Blood Count w/diff [LAB.AMB] Time Frame: 3 Days, Location: None Selected Patient Instructions/Handouts: Urinary Tract Infection in Men (GEN), Ischemic Stroke (IP) Activity/Diet/Wound Care/Special Instructions: Continue aspirin and plavix for the next 21 days and than continue on aspirin 81 mg daily Recommend an event monitor on discharge for 30 days on discharge to rule out cardiac arrhythmia Follow up with tester [employer] Establish care with a neurologist Discharge Disposition: HOME WITH HOME HEALTH SERVICES
== END 2024-05-17 14:30 | disposition home health service (06) | DRG 64 ==
LOC: EC 11:44 → 3SCARD 16:22
PROVIDERS: ADMIT Hospitalist; ATTEND Hospitalist
DX: I63.9 Cerebral infarction, unspecified (principal); I21.A1 Myocardial infarction type 2; N39.0 Urinary tract infection, site not specified; T83.518A Infection and inflammatory reaction due to other urinary catheter, initial encounter; E11.9 Type 2 diabetes mellitus without complications; C61 Malignant neoplasm of prostate; F03.90 Unspecified dementia, unspecified severity, without behavioral disturbance, psychotic disturbance, mood disturbance, and anxiety; I10 Essential (primary) hypertension; R00.0 Tachycardia, unspecified; E03.9 Hypothyroidism, unspecified; G83.14 Monoplegia of lower limb affecting left nondominant side; R29.700 NIHSS score 0; E78.00 Pure hypercholesterolemia, unspecified; F17.290 Nicotine dependence, other tobacco product, uncomplicated; I08.3 Combined rheumatic disorders of mitral, aortic and tricuspid valves; Y84.6 Urinary catheterization as the cause of abnormal reaction of the patient, or of later complication, without mention of misadventure at the time of the procedure; Z79.84 Long term (current) use of oral hypoglycemic drugs; Z79.890 Hormone replacement therapy; Z79.899 Other long term (current) drug therapy; Z86.73 Personal history of transient ischemic attack (TIA), and cerebral infarction without residual deficits
CPT/HCPCS: 36415; 70450; 70551; 71045; 73502; 74176; 80048; 80053; 80061; 81001; 82607; 82746; 83036; 83605; 83735; 83880; 84100; 84443; 84484; 85025; 85027; 85610; 85730; 87086; 93005; 93270; 93306; 93880; 96361; 96365; 96366; 96367; 99285